=== PATIENT | female | born 1955 | race African-American/Black ===

== ENCOUNTER 2018-06-11 06:04 | Day surgery (SDC) | payer MEDICARE, BC ==
[2018-06-10 12:59] VITALS: BMI 32.2
[~2018-06-11 06:04] MED LIST: Cyclopentolate 1% Opth Drop 2 ML BOT FS SCH; EPINEPHrine 0.3 MG in Ophthalmic Irrigation Solution 500 ML FS SCH; Phenylephrine 2.5% Ophth Soln 5 ML BOT FS SCH
[2018-06-11] MEDS ORDERED: Phenylephrine 2.5% Ophth Soln 5 ML BOT ONE (06:18)
[2018-06-11] MEDS ORDERED: Cyclopentolate 1% Opth Drop 2 ML BOT ONE (06:18)
[2018-06-11] MEDS ORDERED: Fentanyl 100 MCG/2 ML VIAL ONE (07:00)
[2018-06-11] MEDS ORDERED: Midazolam HCl 2 mg/2 ml Vial ONE (07:00)
[2018-06-11] MEDS ORDERED: Lidocaine 2% w/Epinephrine 1:200K 20 ML VIAL ONE (07:00)
[2018-06-11] MEDS ORDERED: PROPOFOL 20 ML ONE (07:00)
--- NOTE | 2018-06-11 08:14 | OP ---
DATE OF PROCEDURE: 06/11/2018 PREOPERATIVE DIAGNOSIS: Exposed tube shunt, left eye. POSTOPERATIVE DIAGNOSIS: Exposed tube shunt, left eye. PROCEDURE: Revision of tube shunt, left eye. SURGEON: Dr. Norbert Mullins ANESTHESIA: Local with monitored anesthesia care. COMPLICATIONS: None. PROCEDURE IN DETAIL: The patient was identified in the preoperative holding area. Appropriate conse nt for the planned surgical procedure on the left eye had been obtained. The patient was transported to the operative suite. Appropriate cardiopulmonary monitoring was established. Local anesthesia o btained using retrobulbar block. The patient was prepped and draped in the usual sterile manner for ophthalmic surgery on the left eye. Lid speculum was placed in the left eye. Infusion line was plac ed at the 8 o'clock position and was checked to be patent by direct inspection through the cornea. A ttention was turned to the superior temporal pars plana. The tube shunt pars plana clip was removed and the tube was repositioned into the eye. The conjunctiva was advanced 180 degrees and advanced fo rward allowing tension with closure of the previous conjunctival defect. 6-0 plain gut sutures were used to close the conch and subconjunctival Ancef were placed. Antibiotic ointment placed, and the e ye was patched and shielded. The patient taken to postop recovery unit in good condition having suff ered no immediate perioperative complications. DISCHARGE INSTRUCTIONS: The patient was instructed to keep patch and shield on, avoid lifting or michael ding, and follow up in the morning with Dr. Mullins.
[2018-06-11] MEDS ORDERED: Maxitrol 0.1% Opth Oint 3.5 GM TUBE ONE (15:30)
[2018-06-11] MEDS ORDERED: Bupivacaine 0.75% 10 ML AMP ONE (15:30)
[2018-06-11] MEDS ORDERED: Lidocaine 1% PF 5 ML VIAL ONE (15:30)
[2018-06-11] MEDS ORDERED: Lidocaine 4% PF 5 ML AMP ONE (15:30)
[2018-06-11] MEDS ORDERED: PROPOFOL 200 MG/20 ML VIAL ONE (15:30)
[2018-06-11] MEDS ORDERED: CEFAZOLIN 1 GM VIAL ONE (15:30)
== END 2018-06-11 08:30 | disposition home or self-care (01) ==
LOC: SDC 06:04
PROVIDERS: ATTEND Ophthalmology Retina Specialist
PROC: 08W Eye, Revision (ICD-10-PCS; principal; 2018-06-11)
DX: T85.398A Other mechanical complication of other ocular prosthetic devices, implants and grafts, initial encounter (principal); H40.2223 Chronic angle-closure glaucoma, left eye, severe stage; Z79.899 Other long term (current) drug therapy
CPT/HCPCS: J0171; J0690; J2001; J2250; J2704; J3010; J3490

== ENCOUNTER 2020-10-08 16:28 | Inpatient (IN) | payer MEDICARE ==
[2020-10-08] MEDS ORDERED: Ondansetron PF 4 MG/2 ML Vial ONE (17:14)
[2020-10-08 17:22] LABS: PTT 25.6 sec (22.9-36.1); Prothrombin Time 13.1 sec (12.0-14.7)
[2020-10-08 17:23] LABS: Mean Corpuscular HGB CONC 30.6 g/dL (32.0-36.0); Mean Corpuscular Hemoglobin 30.2 pg (27.0-31.0); Mean Corpuscular Volume 98.7 fL (78.0-98.0); RBC Distribution Width 13.1 % (11.5-14.5); Red Blood Cell (RBC) Count 4.31 mill/uL (4.20-5.40)
--- NOTE | 2020-10-08 17:33 | RAD ---
PORTABLE CHEST ONE VIEW: Date: 10-08-2020 Time: 5:14 p.m. History: Dyspnea Comparison: 04-17-16 FINDINGS: The heart is enlarged. There is mild pulmonary vascular congestion. No lobar consolidation, pneumotho races or large effusions are seen. IMPRESSION: As above. POS: RAMONITA
[2020-10-08 17:36] LABS: Eosinophils 1 % (0-10); Lymphocytes 33 % (21-51); MDiff Complete? YES; Mean Platelet Volume 9.1 fL (7.4-10.4); Monocytes 3 % (0-10); Neutrophil 63 % (42-75); Nucleated RBC 2 % (0); Platelet Count 190 thou/uL (130-400); Platelet Morphology Comment Appears Adequate; Polychromasia SLIGHT = 2-3 cells (100X) (0-2/hpf); White Blood Cell (WBC) Count 12.6 thou/uL (4.8-10.8)
[2020-10-08 17:38] LABS: ALT (SGPT) 65 U/L (8-55); AST (SGOT) 39 U/L (5-34); Albumin 4.5 g/dL (3.4-4.8); Alkaline Phosphatase 222 U/L (40-110); Anion Gap 21 mmol/L (10-20); BUN (Urea Nitrogen) 36 mg/dL (9.8-20.1); Bilirubin, Total 0.8 mg/dL (0.2-1.2); Calc. Creatinine Clearance 0 mL/min (70-130); Calcium 9.9 mg/dL (7.8-10.44); Carbon Dioxide 22 mmol/L (23-31); Chloride 107 mmol/L (98-107); Globulin 3.5 g/dL (2.4-3.5); Glucose 365 mg/dL (80-115); Sodium 145 mmol/L (136-145)
[2020-10-08] MEDS ORDERED: Furosemide 40 MG/4 ML VIAL ONE (17:40)
[2020-10-08 17:47] LABS: Actual Bicarbonate (HCO3a) 21.6 mEq/L (22-28); Analyzer IN Cardio ER; Base Excess (BEa) -5.2 mEq/L (-2.0 to +3.0); CO2 Tension 47.1 mmHg (35.0-45.0); Calcium, Ionized (arterial) 1.29 mmol/L (1.12-1.30); Carboxyhemoglobin (COHb) 0.9 gm% (0.0-3.0); Hemoglobin (Hb) 12.9 g/dL (12.0-16.0); O2 Tension (PaO2), arterial 313.5 mmHg (> 80.0); Potassium - ABG Lab 5.09 mmol/L (3.70-5.30); pH, Arterial 7.28 (7.35-7.45)
[2020-10-08 17:49] LABS: ALV-art Gradient 340.625 mmHg (0-20); Puncture Site LRA
[2020-10-08 17:56] LABS: SARS-CoV-2 NAA Rapid Test Not Detected (NotDetected)
[2020-10-08] MEDS ORDERED: niCARdipine 20MG In NaCl 0 MG/0 ML BAG ONE (17:59)
[2020-10-08] MEDS ORDERED: Diltiazem 125 MG/25 ML ONE (18:14)
[2020-10-08] MEDS ORDERED: Diltiazem HCl 125 MG, Admixture Fee 1 EACH in Sodium Chloride 0.9% 100 ML IVPB SCH (18:30)
[2020-10-08] MEDS ORDERED: Ondansetron PF 4 MG/2 ML Vial IVP PRN ×2 (19:45→20:11)
[2020-10-08] MEDS ORDERED: Ondansetron ODT 4 MG TAB SL PRN (19:45)
[2020-10-08] MEDS ORDERED: Labetalol HCl 100 MG/20 ML VIAL SLOW IVP PRN (20:11)
[2020-10-08] MEDS ORDERED: Dextrose 50% Abboject 50 ML SYRINGE SLOW IVP PRN (20:11)
[2020-10-08] MEDS ORDERED: Ondansetron ODT 4 MG TAB PO PRN (20:11)
[2020-10-08] MEDS ORDERED: Dextrose 5% in Water 1,000 ML IV PRN (20:11)
--- NOTE | 2020-10-08 20:13 | HP ---
PRIMARY CARE PROVIDER: Adela Pierce MD PRIMARY COOKER CHIP: Jamarcus Alexander MD CHIEF COMPLAINT: Shortness of breath and weakness. HISTORY OF PRESENT ILLNESS: This is a 65-year-old female, who presented to the [facility] Emergency Department with severe respiratory distress, who states that she suddenly became short of breath in the last 24 hours with some swelling to her abdomen. The patient does admit to history of renal transplant in 2018, on immunosuppressant therapy with compliance. The patient denies undergoing any dialysis currently and states she has had no similar incidence to the current presentation. The patient denied any documented fever, chills, trauma, or exposure history. The patient denied any family members with similar symptoms. The patient denied any change to her chronic medication regimen. The patient does admit that she has had cardiac stent placed in 2013, but follows with her regular primary care provider on a routine basis. The patient denied any prominent lower extremity swelling, but states that when the shortness of breath initiated, she had difficulty laying back in a chair and had to sit upright. EMS personnel were notified, at which point, the patient was noted profoundly dyspneic with respiratory rates in the mid 40s to upper 50s with hypoxia with O2 saturation 81% on room air. Chest imaging in the emergency room revealed a bilateral pulmonary edema, at which point, the patient received 80 mg of Lasix and placed on BiPAP noninvasive mechanical ventilation. The patient was also noted profoundly hypertensive and tachycardiac with heart rates in the 160s. PAST MEDICAL HISTORY: 1. Diabetes mellitus type 2, insulin-requiring with diabetic nephropathy. 2. Chronic kidney disease stage 3, status post renal transplant in 2018. 3. Hypertension. 4. Hypothyroidism. 5. Hyperlipidemia. 6. Morbid obesity. 7. Coronary artery disease, status post cardiac stent placement. PAST SURGICAL HISTORY: 1. Status post cardiac stent placement in 2013. 2. Status post hysterectomy. 3. Status post temporary hemodialysis catheter placement with subsequent removal. 4. Status post renal transplant. CURRENT MEDICATIONS: Based on review of electronic medical record, 1. Latanoprost 0.005% one drop to each eye at bedtime. 2. Vitamin D3 of 1000 units p.o. daily. 3. Tacrolimus 2 mg p.o. b.i.d. 4. Levothyroxine 75 mcg p.o. daily. 5. Rhopressa one drop to each eye at bedtime. 6. Prednisone 5 mg p.o. daily. 7. Myfortic 180 mg p.o. b.i.d. 8. Glargine insulin 15 units subcutaneously at bedtime. 9. Magnesium oxide 400 mg p.o. at bedtime. 10. Multivitamin 1 tablet p.o. daily. 11. Ferrous sulfate 325 mg p.o. at bedtime. 12. Brimonidine tartrate/timolol 0.2%/0.5% eyedrops one drop to each eye b.i.d. 13. Lipitor 80 mg p.o. at bedtime. 14. Enteric-coated aspirin 81 mg p.o. daily. ALLERGIES: NO KNOWN DRUG ALLERGIES. FAMILY HISTORY: Mother and three sisters with diabetes mellitus. Brother with history of myocardial infarction with subsequent expiration. SOCIAL HISTORY: , with her in the emergency room. Resides in [place], [place]. No current alcohol, tobacco, or illicit drug use. REVIEW OF SYSTEMS: CONSTITUTIONAL: Negative for weight loss or gain, ability to conduct usual activities. SKIN: Negative for rash, itching. EYES: Negative for double vision, pain. ENT/MOUTH: Negative for nose bleeding, neck stiffness, pain, tenderness. CARDIOVASCULAR: Negative for palpitations, dyspnea on exertion, orthopnea. RESPIRATORY: Negative for shortness of breath, wheezing, cough, hemoptysis, fever or night sweats. GASTROINTESTINAL: Negative for poor appetite, abdominal pain, heartburn, nausea, vomiting, constipation, or diarrhea. GENITOURINARY: Negative for urgency, frequency, dysuria, nocturia. MUSCULOSKELETAL: Negative for pain, swelling. NEUROLOGIC/PSYCHIATRIC: Negative for anxiety, depression. ALLERGY/IMMUNOLOGIC: Negative for skin rash, bleeding tendency. Otherwise, negative except as stated per HPI. PHYSICAL EXAMINATION: VITAL SIGNS: On admission, blood pressure 172/118, pulse 155, respiratory rate 46, and O2 saturation 81% on room air. Temperature 97.6 degrees Fahrenheit. GENERAL APPEARANCE: This is a 65-year-old female, currently on BiPAP noninvasive mechanical ventilation. Alert and responsive, in moderate respiratory distress. HEENT: Pupils are equal, round, and reactive to light and accommodation. Extraocular muscles are intact. No scleral icterus. No conjunctival injection. Nares patent. OP is clear. BiPAP face mask in place. NECK: Supple. No cervical adenopathy. No thyromegaly. No carotid bruits. No JVD appreciated. Cervical spine with full active and passive range of motion. No meningeal signs noted. CHEST: Bibasilar crackles bilaterally with diminished breath sounds. Tachypnea noted. CARDIOVASCULAR: S1 and S2 with irregular rate and rhythm. Tachycardic. ABDOMEN: Obese soft, and nontender. Landmarks are difficult to palpate due to the patient's body habitus. No rebound or guarding noted. EXTREMITIES: Warm and dry with fair turgor. Mild pitting edema to the proximal shins bilaterally. Pulses palpable distally at the dorsalis pedis, posterior tibial, and popliteal arteries bilaterally. Capillary refill less than 2 seconds. NEUROLOGIC: Cranial nerves 2 through 12 are grossly intact. No focal or lateralizing signs appreciated. Responds to questions appropriately. PERTINENT LABORATORY AND X-RAY FINDINGS: Sodium 145, potassium 5.0, chloride 107, CO2 of 22, anion gap 21, BUN 36, creatinine 1.89, estimated GFR 32, glucose 365, lactic acid level 2.8, calcium 9.9, AST 39, ALT of 65, alkaline phosphatase 222. BNP 1158, previously noted 2539, 11/10/2013. CBC showed a white blood cell count of 12.6, hemoglobin 13, hematocrit 43, MCV 99, platelet count 190 with normal differential. PT 13.1, INR 1.0, PTT 25.6. ABG on admission 10/08/2020 at 1740 hours showed a pH 7.28, pCO2 of 47.1, pO2 of 314, O2 saturation 99.6 on BiPAP noninvasive mechanical ventilation 100% FiO2. COVID-19 PCR not detected, 10/08/2020. Influenza A and B negative 10/08/2020. Portable chest x-ray dated 10/08/2020 showed cardiomegaly with pulmonary vascular congestion. EKG dated 10/08/2020, by my interpretation shows atrial fibrillation with rapid ventricular response, heart rates in the 130s. ASSESSMENT AND PLAN: 1. Acute hypoxic hypercapnic respiratory failure. The patient will be admitted to the Critical Care Unit. We will continue BiPAP noninvasive mechanical ventilation and titrate to clinical response. Suspect the patient's respiratory failure due to #2 and #3. See below for management. 2. Acute congestive heart failure exacerbation. Suspect multifactorial process including #3. Continue Lasix 40 mg IV b.i.d. Check 2D transthoracic echocardiogram in the a.m. Serial I's and O's and daily weight. Check magnesium and TSH level in the a.m. Consult Cardiology Service in the a.m. for any further recommendations. 3. Atrial fibrillation with rapid ventricular response. It appears to be new onset. Continue rate control measures with Cardizem 20 mg IV bolus x1 followed by 15 mg/hour. Start Eliquis 2.5 mg b.i.d. Check 2D transthoracic echocardiogram. TSH and magnesium level in the a.m. 4. Chronic kidney disease stage 3. Avoid nephrotoxic agents and limit contrast exposure. Serial creatinine monitoring. Consult Nephrology Service in the a.m. 5. Status post renal transplant. Continue supportive management as outlined above. Consult Nephrology Service in the a.m. Resume immunosuppressive therapy. 6. Diabetes mellitus type 2, insulin requiring. Insulin sliding scale for reflexive coverage. Hold long-acting insulin until the patient tolerating p.o. intake off BiPAP noninvasive mechanical ventilation. Serial Accu-Cheks q.6 hours. 7. Prophylaxis. SCDs while in bed. Pepcid 20 mg p.o. b.i.d. 8. Code status is full. Surrogate medical decision maker is the patient's spouse. Job ID: [id number]
[2020-10-08 20:51] LABS: Troponin I 0.261 ng/mL (< 0.028)
[2020-10-08] MEDS ORDERED: Mycophenolate ER 180 MG TAB PO SCH (21:00)
[2020-10-08] MEDS: Magnesium Oxide 400 MG TAB PO SCH (22:18)
[2020-10-08] MEDS: Famotidine 20 MG TAB PO SCH (22:18)
[2020-10-08] MEDS: Apixaban 2.5 MG TAB PO SCH (22:18)
[2020-10-08] MEDS: Ferrous Sulfate 325 MG TAB PO SCH (22:18)
[2020-10-08] MEDS: Atorvastatin Calcium 40 MG TAB PO SCH (22:18)
[2020-10-08] MEDS: Cholecalciferol 1,000 UNITS (25 MCG) TAB PO SCH (22:18)
[2020-10-08] MEDS: Carvedilol 6.25 MG TAB PO SCH (22:19)
[2020-10-08] MEDS: Timolol 0.5% Ophth Soln 5 ml Bottle EA EYE SCH (22:19)
[2020-10-08] MEDS: Brimonidine Tartrate 0.2% Ophth Soln 5 ml Bottle EA EYE SCH (22:20)
[2020-10-08] MEDS: Latanoprost 0.005% Ophth Soln 2.5 ml Bottle EA EYE SCH (22:20)
[2020-10-08] MEDS: Tacrolimus 1 MG CAP PO SCH (22:20)
[2020-10-08 23:54] LABS: Troponin I 0.754 ng/mL (< 0.028)
[2020-10-08] MEDS ORDERED: Furosemide 40 MG/4 ML VIAL SLOW IVP SCH (23:59)
[2020-10-09] MEDS: HumaLOG 300 UNITS/3 ML VIAL SC PRN ×2 (00:46→05:17)
[2020-10-09 03:46] LABS: #Basophils 0.1 thou/uL (0.0-0.2); #Lymphocytes 1.7 thou/uL (1.20-3.40); #Monocytes 0.9 thou/uL (0.11-0.59); #Neutrophils 7.8 thou/uL (1.40-6.50); %Basophils 0.5 % (0.0-1.0); %Eosinophils 0.5 % (0.0-10.0); %Lymphocytes 16.3 % (21.0-51.0); %Monocytes 8.7 % (0.0-10.0); Hemoglobin 10.8 g/dL (12.0-16.0); Mean Corpuscular HGB CONC 30.6 g/dL (32.0-36.0); Mean Corpuscular Hemoglobin 30.2 pg (27.0-31.0); Mean Corpuscular Volume 98.6 fL (78.0-98.0); Mean Platelet Volume 8.5 fL (7.4-10.4); Platelet Count 201 thou/uL (130-400); RBC Distribution Width 12.9 % (11.5-14.5); Red Blood Cell (RBC) Count 3.59 mill/uL (4.20-5.40); White Blood Cell (WBC) Count 10.6 thou/uL (4.8-10.8)
[2020-10-09 04:08] LABS: ALT (SGPT) 47 U/L (8-55); AST (SGOT) 26 U/L (5-34); Albumin 3.5 g/dL (3.4-4.8); Alkaline Phosphatase 155 U/L (40-110); Anion Gap 15 mmol/L (10-20); BUN (Urea Nitrogen) 35 mg/dL (9.8-20.1); Bilirubin, Total 0.6 mg/dL (0.2-1.2); Calc. Creatinine Clearance 54 mL/min (70-130); Calcium 9.2 mg/dL (7.8-10.44); Carbon Dioxide 26 mmol/L (23-31); Chloride 109 mmol/L (98-107); Globulin 2.8 g/dL (2.4-3.5); Glucose 164 mg/dL (80-115); Magnesium 2.2 mg/dL (1.6-2.6); Potassium 4.6 mmol/L (3.5-5.1); Protein, Total 6.3 g/dL (6.0-8.3); Sodium 145 mmol/L (136-145)
[2020-10-09] MEDS: Furosemide 40 MG/4 ML VIAL SLOW IVP SCH ×2 (05:04→13:46)
[2020-10-09] MEDS: Levothyroxine Sodium 75 MCG TAB PO SCH (05:05)
--- NOTE | 2020-10-09 08:40 | CON ---
DATE OF CONSULTATION: 10/09/2020 REASON FOR CONSULTATION: ICU management of hypoxic respiratory failure related to pulmonary edema. HISTORY OF PRESENT ILLNESS: Ms. Hoang is a pleasant 65-year-old female, who presented to the emergency room yesterday with respiratory distress related to pulmonary edema. She was also found to be in atrial fibrillation with rapid ventricular response. The patient was placed on BiPAP and has since been weaned off that this morning. She is diuresed nicely with Lasix. SUBJECTIVE: She says she has not really had any pulmonary issues in the past other than some heart issues. She denies any asthma or COPD. She says that she snores heavily, but has never been tested for MAI. PAST MEDICAL HISTORY: 1. Diabetes mellitus, type 2. 2. Diabetic nephropathy. 3. End-stage renal disease, requiring renal transplant in 2018. 4. Hypertension. 5. Hypothyroidism. 6. Hyperlipidemia. 7. Obesity. 8. Coronary artery disease. PAST SURGICAL HISTORY: 1. Coronary stent placement. 2. Renal transplant. 3. Hysterectomy. 4. Previous AV shunts, which have since clotted off. 5. History of temporary dialysis catheter, which was removed. MEDICATIONS: Prior to admission; 1. Latanoprost eye drops. 2. Vitamin D3 of 1000 units daily. 3. Tacrolimus 2 mg b.i.d. 4. Levothyroxine 75 mcg daily. 5. Rhopressa one drop each eye at bedtime. 6. Prednisone 5 mg daily. 7. Myfortic 180 mg b.i.d. 8. Glargine insulin 15 units nightly. 9. Magnesium oxide 400 mg daily. 10. Multivitamin one tablet daily. 11. Iron sulfate 325 mg at night. 12. Brimonidine tartrate/timolol eye drops. 13. Lipitor 80 mg nightly. 14. Aspirin 81 mg daily. ALLERGIES: NONE. FAMILY MEDICAL HISTORY: Remarkable for diabetes and heart disease. SOCIAL HISTORY: Nonsmoker. Does not consume alcohol. Does not use illicit drugs. REVIEW OF SYSTEMS: Twelve-point review of systems is otherwise negative. PHYSICAL EXAMINATION: VITAL SIGNS: Temperature 98.3, pulse 98 to 120, blood pressure 113/65, and O2 saturation 99%. GENERAL: The patient is awake, alert, speaks in complete sentences without difficulty. HEENT: Unremarkable. NECK: No adenopathy or JVD. CARDIAC: S1 and S2. Irregularly irregular and tachycardic. LUNGS: Clear without wheezing or rhonchi. ABDOMEN: Soft, obese, nontender, and nondistended. EXTREMITIES: No clubbing, cyanosis, or edema. IMAGING DATA: Her chest x-ray at time of admission showed cardiomegaly and pulmonary edema. LABORATORY DATA: White blood cell count 10.6, hematocrit 35.4, and platelet count 201. PH was 7.28, pCO2 of 47, pO2 of 313 on BiPAP 16/8, FiO2 of 100%. BNP 1702 today compared to 1157 yesterday. Sodium 145, potassium 4.6, chloride 109, CO2 of 26, BUN 35, creatinine 1.7, and glucose 164. COVID test was negative. ASSESSMENT: 1. Probable diastolic heart failure with cardiogenic pulmonary edema. 2. Status post renal transplant. 3. Atrial fibrillation with rapid ventricular response. 4. Diabetes mellitus. PLAN: 1. The main issues here probably control of her atrial fibrillation and diuresis as needed. 2. In the future, it might be marr to have her go get a sleep study as uncontrolled/severe sleep apnea could be a trigger for her atrial fibrillation and aggravate her heart failure. 3. Agree with Cardiology consultation. 4. Since she is off the BiPAP, I believe she could probably be transferred to telemetry. Job ID: [id number]
[2020-10-09] MEDS ORDERED: Tacrolimus [Envarsus Xr] 1 MG Tab.Er.24h PO SCH (09:00)
[2020-10-09] MEDS: Tacrolimus 1 MG CAP PO SCH (09:01)
[2020-10-09] MEDS: Carvedilol 6.25 MG TAB PO SCH ×2 (09:41→20:05)
[2020-10-09] MEDS: Aspirin 81 mg Enteric Coated Tablet PO SCH (09:42)
[2020-10-09] MEDS: predniSONE 5 MG TAB PO SCH (09:42)
[2020-10-09] MEDS: Apixaban 2.5 MG TAB PO SCH (09:42)
[2020-10-09] MEDS: Timolol 0.5% Ophth Soln 5 ml Bottle EA EYE SCH ×2 (09:47→20:08)
[2020-10-09] MEDS: Brimonidine Tartrate 0.2% Ophth Soln 5 ml Bottle EA EYE SCH ×2 (09:48→20:09)
--- NOTE | 2020-10-09 09:54 | CON ---
DATE OF CONSULTATION: 10/09/2020 HISTORY OF PRESENT ILLNESS: Ms. Hoang is a 65-year-old black female with history of status post cadaveric renal transplant, type 2 diabetes mellitus, hypertension, and admitted for generalized weakness. She was found to be in CHF and was hypoxemic. Initially, placed on BiPAP. This morning, her respiratory distress is much improved. We are now being consulted for management of her renal transplantation. REVIEW OF SYSTEMS: Positive for shortness of breath. No chest pain. No syncopal episode. No nausea. No vomiting. No gross hematuria. No fever or chills. Denies any productive cough. No abdominal pain. Occasional joint pains. No hematochezia. No melena. No hematemesis. HOME MEDICATIONS: Include the following; 1. Prednisone 7.5 mg p.o. daily. 2. Envarsus XR-tacrolimus long-acting 4 mg tablet plus three tablets of 1 mg tablet each for a total of 7 mg per day. 3. MiraLAX 17 g daily. 4. Multivitamin daily. 5. Magnesium oxide 400 mg at bedtime. 6. Levothyroxine 75 mcg p.o. daily. 7. Novolin 70/30, 3 units subcu before meals. 8. Insulin glargine 16 units subcu at bedtime. 9. Ferrous sulfate 325 mg at bedtime. 10. Famotidine 20 mg p.o. b.i.d. 11. Vitamin D3, 2000 international units at bedtime. 12. Atorvastatin 80 mg at bedtime. 13. Aspirin 81 mg tablet once a day. PAST MEDICAL HISTORY: Status post ESRD from diabetic nephropathy, type 2 diabetes mellitus, status post renal transplant, hypertension, hyperlipidemia. PAST SURGICAL HISTORY: Status post PD catheter placement with subsequent removal, status post AV fistula placement, status post cuffed dialysis catheter placement, status post colonoscopy, status post cadaveric renal transplant, status post hysterectomy, status post colonic polypectomy. ALLERGIES: NONE. TRAUMA: None. IMMUNIZATIONS: Up to date. HOSPITALIZATIONS: Please see past medical history. SOCIAL HISTORY: The patient lives in [place]. . No children. Retired cook. Education, high school. No alcohol intake. Sedentary lifestyle. Status post multiple blood transfusions. No IV drug abuse. No smoking. FAMILY HISTORY: Positive history of ESRD. PHYSICAL EXAMINATION: VITAL SIGNS: Blood pressure is 122/56, heart rate 105, respiratory rate is 20, O2 saturation 100%. GENERAL: The patient is awake, alert, comfortable, not in distress. SKIN: Adequate turgor. HEENT: She has pinkish conjunctivae. Anicteric sclerae. No neck mass. No carotid bruits. No JVD. CHEST: No deformities. LUNGS: Clear breath sounds. No wheezing. No crackles. HEART: Normal sinus rhythm. No murmurs. No gallops. No rubs. ABDOMEN: Globular, soft, nontender. No masses. EXTREMITIES: Trace edema. NEUROLOGIC: Awake. Oriented to 3 spheres. Moving all extremities. No tremors. No asterixis. No ataxia. LABORATORY DATA: Laboratories of October 09, 2020: White count 10.6, hemoglobin 10.8. Sodium 145, potassium 4.6, chloride 109, carbon dioxide 26, BUN 35, creatinine 1.75, glucose 164, calcium 9.2, magnesium 2.2, AST 26, ALT 47. BNP 1702. Further review of her serum creatinine shows the following; on October 08, 2020, it was 1.89. On July 12, 2020, creatinine 1.3. On July 12, 2020, tacrolimus level was 7.9. COVID-19 testing, negative. Influenza A and B, negative. On May 16, 2020, BK virus was 5150. ASSESSMENT AND PLAN: 1. Status post cadaveric renal transplant - we will continue current immunosuppressive regimen. CellCept has been discontinued with this patient due to BK virus infection. She takes Envarsus/tacrolimus which is long-acting - total of 7 mg per day. We will recheck tacrolimus level. Continue current immunosuppressive regimen. Continue prednisone. 2. Acute kidney injury - most likely a hemodynamically-mediated renal dysfunction secondary to her congestive heart failure. Continue judicious use of diuretics. 3. Congestive heart failure, followed by her fruit raiser as well as by the hospitalist. A cardiac echo has been ordered. 4. We will do a tacrolimus level this morning. Adjust tacrolimus as needed. Thank you for the consult. We will continue to follow. Job ID: [id number]
[2020-10-09 12:27] LABS: Troponin I 1.569 ng/mL (< 0.028)
[2020-10-09] MEDS: ENVARSUS 4 MG PO SCH (13:27)
[2020-10-09] MEDS: ENVARSUS 1 MG PO SCH (13:28)
[2020-10-09] MEDS ORDERED: Amiodarone 150 MG in Dextrose 5% in Water 100 ML IVPB SCH (15:30)
[2020-10-09] MEDS ORDERED: Amiodarone 450 MG in Dextrose 5% in Water 250 ML IVPB SCH (15:30)
[2020-10-09 16:09] LABS: Critical Call Chem Troponin I RESULT DECREASING; Troponin I 1.501 ng/mL (< 0.028)
--- NOTE | 2020-10-09 17:57 | PDOC.HOSPP ---
- Subjective Encounter Date: 10/09/20 Encounter Time: 10:30 Subjective: Patient up in bed no complaints. - Objective Vital Signs & Weight: Vital Signs (12 hours) Temp Pulse BP Pulse Ox 10/09/20 16:00 98.4 F 10/09/20 12:00 98.3 F 10/09/20 09:47 97 118/58 L 10/09/20 09:41 118/58 L 10/09/20 08:00 98.4 F 100 Weight Admit Weight 232 lb 9.403 oz Weight 232 lb 9.403 oz Most Recent Monitor Data Heart Rate from ECG 87 NIBP 119/50 NIBP BP-Mean 93 Respiration from ECG 15 SpO2 100 I&O: 10/08/20 10/09/20 10/10/20 06:59 06:59 06:59 Intake Total 210 Output Total 2800 1640 Balance -2800 -1430 Result Diagrams: 10/09/20 03:23 10/09/20 03:23 Additional Labs: Accuchecks 10/09/20 10/09/20 10/09/20 16:46 13:10 00:46 POC Glucose 145 H 107 H 207 H Hospitalist ROS - Review of Systems Cardiovascular: denies: chest pain, palpitations, orthopnea, paroxysmal noc. dyspnea, edema, light headedness, other Gastrointestinal: denies: nausea, vomiting, abdominal pain, diarrhea, constipation, melena, hematochezia, other Genitourinary: denies: dysuria, frequency, incontinence, hematuria, retention, other - Medication Medications: Active Medications Generic Name Dose Route Start Last Admin Trade Name Baldevq PRN Reason Stop Dose Admin Aspirin 81 mg 10/09/20 09:00 10/09/20 09:42 Aspirin 81 Mg Enteric Coated Tablet PO 81 mg DAILY JEN Administration Atorvastatin Calcium 40 mg 10/08/20 21:00 10/08/20 22:18 Atorvastatin Calcium 40 Mg Tab PO 40 mg HS JEN Administration Brimonidine Tartrate 1 drop 10/08/20 21:00 10/09/20 09:48 Brimonidine Tartrate 0.2% Ophth Soln 5 Ml Bottle EA EYE 1 drop BID JEN Administration Carvedilol 6.25 mg 10/08/20 21:00 10/09/20 09:41 Carvedilol 6.25 Mg Tab PO 6.25 mg BID JEN Administration Cholecalciferol 1,000 units 10/08/20 21:00 10/08/20 22:18 Cholecalciferol 1,000 Units (25 Mcg) Tab PO 1,000 units HS JEN Administration Famotidine 20 mg 10/08/20 21:00 10/08/20 22:18 Famotidine 20 Mg Tab PO 20 mg 2100 JEN Administration Ferrous Sulfate 325 mg 10/08/20 21:00 10/08/20 22:18 Ferrous Sulfate 325 Mg Tab PO 325 mg HS JEN Administration Furosemide 40 mg 10/09/20 06:00 10/09/20 13:46 Furosemide 40 Mg/4 Ml Vial SLOW IVP 40 mg 0600,1400 JEN Administration Insulin Human Lispro 0 units 10/08/20 20:11 10/09/20 05:17 Humalog 300 Units/3 Ml Vial SC 2 unit .MILD SLIDING SCALE PRN Administration Mild Correctional Scale Insulin Human Lispro 0 units 10/08/20 20:11 10/09/20 00:46 Humalog 300 Units/3 Ml Vial SC 2 unit .BEDTIME SLIDING SC PRN Administration Bedtime Correctional Scale Latanoprost 1 drop 10/08/20 21:00 10/08/20 22:20 Latanoprost 0.005% Ophth Soln 2.5 Ml Bottle EA EYE Not Given HS JEN Levothyroxine Sodium 75 mcg 10/09/20 06:00 10/09/20 05:05 Levothyroxine Sodium 75 Mcg Tab PO 75 mcg 0600 JEN Administration Magnesium Oxide 400 mg 10/08/20 21:00 10/08/20 22:18 Magnesium Oxide 400 Mg Tab PO 400 mg HS JEN Administration Envarsus Xr 4 Mg 1 each 10/09/20 09:00 10/09/20 13:27 PO 1 each DAILY JEN Administration Envarsus Xr 1 Mg 3 each 10/09/20 09:00 10/09/20 13:28 PO 3 each DAILY JEN Administration Prednisone 5 mg 10/09/20 09:00 10/09/20 09:42 Prednisone 5 Mg Tab PO 5 mg DAILY JEN Administration Timolol Maleate 1 drop 10/08/20 21:00 10/09/20 09:47 Timolol 0.5% Ophth Soln 5 Ml Bottle EA EYE 1 drop BID JEN Administration - Exam Neck: negative: supple, symmetric, no JVD, no thyromegaly, no lymphadenopathy, no carotid bruit, JVD Heart: negative: RRR, no murmur, no gallops, no rubs, normal peripheral pulses, irregular, diminshed peripheral pulses, murmur present, II/IV, III/IV Respiratory: negative: CTAB, no wheezes, no rales, no ronchi, normal chest expansion, no tachypnea, normal percussion, rales, rhonchi, tachypneic, wheezes Gastrointestinal: negative: soft, non-tender, non-distended, normal bowel sound s, no palpable masses, no hepatomegaly, no splenomegaly, no bruit, no guarding, no rigidity, tender to palpation, distended, diminished bowl sounds, voluntary guarding Hosp A/P (1) Renal transplant recipient Status: Acute (2) Chronic kidney disease (CKD) stage G3a/A3, moderately decreased glomerular filtration rate (GFR) between 45-59 mL/min/1.73 square meter and albuminuria creatinine ratio greater than 300 mg/g Code(s): N18.31 - CHRONIC KIDNEY DISEASE, STAGE 3A Status: Acute (3) Shortness of breath Code(s): R06.02 - SHORTNESS OF BREATH Status: Acute (4) Acute and chronic respiratory failure with hypoxia Code(s): J96.21 - ACUTE AND CHRONIC RESPIRATORY FAILURE WITH HYPOXIA Status: Acute (5) NSTEMI (non-ST elevated myocardial infarction) Code(s): I21.4 - NON-ST ELEVATION (NSTEMI) MYOCARDIAL INFARCTION Status: Acute (6) DM type 2 (diabetes mellitus, type 2) Status: Chronic (7) Atrial fibrillation with RVR Code(s): I48.91 - UNSPECIFIED ATRIAL FIBRILLATION Status: Acute - Plan Patient was on BiPAP currently off BiPAP. She is currently being diuresed. Significantly elevate troponin most likely secondary to demand related type II. Rate controlled on amiodarone. Patient on aspirin. Patient on Lovenox will renally dose given her renal transplant. Patient currently on tacrolimus will continue.
[2020-10-09] MEDS ORDERED: cefTRIAXone\\ROCEPHIN 1 GM in Sodium Chloride 0.9% 100 ML IVPB SCH (18:00)
--- NOTE | 2020-10-09 18:48 | CON ---
DATE OF CONSULTATION: HISTORY OF PRESENT ILLNESS: Letty Hoang is a 65-year-old black female, who was admitted with increased shortness of breath and pulmonary edema. 9 or 10 years ago, she was seen by Dr. Mcneil and apparently she had abnormal PET scan and was told that she need to undergo cardiac catheterization; however, she never did follow up with him. She was seen by Dr. Hawkins here at [facility] in October 2013 when she had what was felt to be a non-STEMI type 2. She did not follow with Dr. Hawkins. In 2013, she was undergoing evaluation for a renal transplant. Apparently, she underwent cardiac catheterization at [place] and had a coronary artery stent placed. She did not have any chest discomfort prior to that, just evaluation prior to transplantation. She did undergo renal transplantation. Also, she has had atrial fibrillation and was on amiodarone in the past. On going through the list of anticoagulants, none of these medications seem familiar to her. She states that approximately 2 years ago, the amiodarone was stopped because she continued to have a normal heart rhythm. She has noted increasing pedal edema as well as abdominal girth. She has had increasing shortness of breath, came to emergency room yesterday with respiratory rates in the mid 40s to upper 50s with O2 saturation of 81% on room air. She was placed on BiPAP. Given intravenous diuretics and her breathing has significantly improved. She denied any palpitations or chest discomfort during all of this. She was found to be in atrial fibrillation at the time of admission and has been placed on a Cardizem drip for better rate control. PAST MEDICAL HISTORY: Diabetes, chronic kidney disease status post renal transplantation in 2018, hypertension, hypothyroidism, hyperlipidemia, morbid obesity, coronary artery disease status post stent placement, and atrial fibrillation in the past. PAST SURGICAL HISTORY: Coronary artery stent in 2013, renal transplant, hysterectomy. MEDICATIONS: 1. Aspirin 81 daily. 2. Atorvastatin 80 at bedtime. 3. Pepcid 20 b.i.d. 4. Ferrous sulfate 325 at bedtime. 5. Lantus 16 units at bedtime. 6. Levothyroxine 75 mcg daily. 7. Magnesium oxide 400 at bedtime. 8. MiraLAX daily p.r.n. 9. Prednisone 7.5 mg daily. 10. Tacrolimus 7 mg daily. ALLERGIES: NONE. SOCIAL HISTORY: She does not smoke or drink. FAMILY HISTORY: Brother had myocardial infarction. REVIEW OF SYSTEMS: A 10-point review of systems otherwise unremarkable. Specifically, she denies any fever, cough, or chills. PHYSICAL EXAMINATION: VITAL SIGNS: Blood pressure 103/46 and pulse of 90 and irregularly irregular. HEENT: PERRL. NECK: Supple. CHEST: Clear. CARDIAC: S1 and S2 normal without any S3, S4, or murmurs. Carotid upstrokes normal without bruits. ABDOMEN: Obese. Normal bowel sounds. No tenderness. EXTREMITIES: Revealed trace pretibial edema. NEUROLOGIC: Grossly intact. SKIN: Warm and dry. LABORATORY DATA: EKG reveals atrial fibrillation with nonspecific ST and T-wave changes. Hemoglobin 10.8, hematocrit 35.4, white count 10,600, and platelets 201,000. ABG yesterday's pH of 7.2, pCO2 of 47.1, and pO2 of 313.5. Sodium 145, potassium 4.6, chloride 109, carbon dioxide 26, BUN 35, and creatinine 1.75. Troponin I 1.569 and BNP 1702.1. TSH is normal. Influenza A, influenza B, and COVID are negative. Chest x-ray revealed cardiac enlargement, mild pulmonary vascular congestion. Echocardiogram revealed normal left ventricular function with ejection fraction of 50% to 55%. Mitral annular calcification, mild mitral regurgitation, and mild tricuspid regurgitation. IMPRESSION: 1. Acute on chronic diastolic heart failure, probably exacerbated by atrial fibrillation. 2. Atrial fibrillation with fast ventricular response. She apparently has had atrial fibrillation in the past and was on amiodarone, but this was stopped two years ago. In naming anticoagulants, she was not familiar with any of them. 3. Hypertension. 4. Hypercholesterolemia. 5. Chronic kidney disease, status post transplantation. 6. Possible obstructive sleep apnea with significant snoring, although she has never had any sleep study. 7. NSTEMI type 2. 8. History of coronary artery stent 2013. PLAN: The patient will continue to be diuresed. I will go ahead and load her with IV amiodarone and she should be anticoagulated with Eliquis 5 mg b.i.d. with her weight and age. After she has been loaded with amiodarone for 2 to 3 days, consideration could be given to transesophageal echo and cardioversion. Records from [facility] here in town will be requested. Job ID: [id number] MTDD
[2020-10-09 19:23] LABS: Critical Call Chem Troponin I RESULT DECREASING; Troponin I 1.239 ng/mL (< 0.028)
[2020-10-09] MEDS: Magnesium Oxide 400 MG TAB PO SCH (20:05)
[2020-10-09] MEDS: Ferrous Sulfate 325 MG TAB PO SCH (20:05)
[2020-10-09] MEDS: Famotidine 20 MG TAB PO SCH (20:05)
[2020-10-09] MEDS: Cholecalciferol 1,000 UNITS (25 MCG) TAB PO SCH (20:06)
[2020-10-09] MEDS: Atorvastatin Calcium 40 MG TAB PO SCH (20:06)
[2020-10-09] MEDS: Enoxaparin Sodium 100 MG/ML SYRINGE SC SCH (20:06)
[2020-10-09] MEDS: Latanoprost 0.005% Ophth Soln 2.5 ml Bottle EA EYE SCH (20:09)
[2020-10-09] MEDS ORDERED: Apixaban 5 MG TAB PO SCH (21:00)
[2020-10-10 03:59] LABS: Hemoglobin 10.6 g/dL (12.0-16.0); Platelet Count 191 thou/uL (130-400)
[2020-10-10] MEDS: HumaLOG 300 UNITS/3 ML VIAL SC PRN ×2 (04:10→22:15)
[2020-10-10 04:19] LABS: Anion Gap 11 mmol/L (10-20); BUN (Urea Nitrogen) 37 mg/dL (9.8-20.1); Calc. Creatinine Clearance 50 mL/min (70-130); Calcium 9.3 mg/dL (7.8-10.44); Carbon Dioxide 34 mmol/L (23-31); Cardiac Risk 2.3 (Less than 4.5); Chloride 105 mmol/L (98-107); Cholesterol 128 mg/dl (< 200 Desired); Glucose 163 mg/dL (80-115); HDL Cholesterol 56 mg/dL (>60 Neg Risk); LDL Cholesterol, Calculated 58 mg/dL; Potassium 4.2 mmol/L (3.5-5.1); Sodium 146 mmol/L (136-145); Triglycerides 70 mg/dL (Less than 150)
[2020-10-10] MEDS: Furosemide 40 MG/4 ML VIAL SLOW IVP SCH (05:30)
[2020-10-10] MEDS: Levothyroxine Sodium 75 MCG TAB PO SCH (05:30)
[2020-10-10] MEDS: predniSONE 5 MG TAB PO SCH (09:00)
[2020-10-10] MEDS: ENVARSUS 4 MG PO SCH (09:00)
[2020-10-10] MEDS: ENVARSUS 1 MG PO SCH (09:00)
[2020-10-10] MEDS: Aspirin 81 mg Enteric Coated Tablet PO SCH (09:00)
[2020-10-10] MEDS: Enoxaparin Sodium 100 MG/ML SYRINGE SC SCH ×2 (09:00→20:49)
[2020-10-10] MEDS: Carvedilol 6.25 MG TAB PO SCH ×2 (09:02→20:47)
--- NOTE | 2020-10-10 09:13 | PRG ---
DATE OF SERVICE: 10/10/2020 SUBJECTIVE: The patient is doing relatively well. Had no acute complaints. OBJECTIVE: VITAL SIGNS: Temperature 98, pulse 99, blood pressure 109/42, O2 saturation 100%. She is currently on amiodarone drip. HEENT: Unremarkable. NECK: No adenopathy or JVD. LUNGS: Clear. CARDIAC: S1 and S2. Irregularly irregular. ABDOMEN: Soft. EXTREMITIES: Edematous. LABORATORY DATA: Hemoglobin 10.6, hematocrit 34.2, and platelet count 191. Sodium 146, potassium 4.2, chloride 105, CO2 of 34, BUN 37, creatinine 1.8, and glucose 163. ASSESSMENT: 1. Status post pulmonary edema from diastolic heart failure. 2. Status post respiratory failure requiring noninvasive mechanical ventilation. 3. Status post renal transplant. 4. Atrial fibrillation with rapid ventricular response. 5. Diabetes mellitus. 6. Possible underlying obstructive sleep apnea. PLAN: 1. Again at some point in the future, she needs a sleep study. 2. The main issue now is control of her atrial fibrillation. From my standpoint, she is stable for transfer to telemetry. Pulmonary will be available as needed. Job ID: [id number]
[2020-10-10] MEDS: Timolol 0.5% Ophth Soln 5 ml Bottle EA EYE SCH ×2 (09:15→20:50)
[2020-10-10] MEDS: Brimonidine Tartrate 0.2% Ophth Soln 5 ml Bottle EA EYE SCH ×2 (09:16→20:49)
--- NOTE | 2020-10-10 09:55 | PRG ---
DATE OF SERVICE: 10/10/2020 SUBJECTIVE: Ms. Hoang is a 65-year-old black female who is status post cadaveric renal transplant, who was admitted for CHF. IV diuresis has been started. A cardiac echo was done, which showed an EF of 55%. Her breathing is much improved, and for this reason, we will decrease her furosemide from 40 mg IV q.12 to once a day. No other complaints today. OBJECTIVE: VITAL SIGNS: Blood pressure is 101/50, heart rate 99, respiratory rate 14, and O2 saturation was 100%. GENERAL: Noted to be awake, comfortable, not in distress. SKIN: Adequate turgor. HEENT: Pinkish conjunctivae. Anicteric sclerae. NECK: No neck mass. No carotid bruits. LUNGS: Clear breath sounds. HEART: Normal sinus rhythm. No murmur, no gallops, and no rubs. ABDOMEN: Globular and soft. EXTREMITIES: No edema. MEDICATIONS: Medications of 10/10/2020 were reviewed. LABORATORY DATA: On 10/10/2020: Hemoglobin 10.6. Sodium 146, potassium 4.2, chloride 105, carbon dioxide 34, BUN 37, creatinine 1.86, glucose 160, and calcium 9.3. Tacrolimus level is pending. ASSESSMENT AND PLAN: 1. Status post cadaveric renal transplant. The patient is to continue her Envarsus at a total of 7 mg per day. Awaiting tacrolimus level. 2. Congestive heart failure, clinically much improved. We have decided to decrease furosemide from 40 mg IV q.12 to once a day due to the improving congestive heart failure. Of note, her ejection fraction was noted to be normal at 55%. Overall, agree with current management. 3. Acute Kidney Injury - This is a [id number] mediated renal dysfunction related to her CHF and diuretic regimen - adjustment of her diuretics has been ordered. Job ID: [id number] MTDD
--- NOTE | 2020-10-10 14:35 | PDOC.HOSPP ---
- Subjective Encounter Date: 10/10/20 Encounter Time: 10:30 Subjective: pt up in bed no complains - Objective Vital Signs & Weight: Vital Signs (12 hours) Temp Pulse Resp BP BP Pulse Ox 10/10/20 12:45 97.2 F L 96 17 128/51 L 97 10/10/20 12:00 97.9 F 10/10/20 09:15 106 H 101/50 L 10/10/20 09:02 101/50 L 10/10/20 08:00 98 F 100 10/10/20 07:14 98 10/10/20 02:40 99 Weight Admit Weight 232 lb 9.403 oz Weight 226 lb 3 oz Most Recent Monitor Data Heart Rate from ECG 99 NIBP 105/45 NIBP BP-Mean 67 Respiration from ECG 16 SpO2 100 I&O: 10/09/20 10/10/20 10/11/20 06:59 06:59 06:59 Intake Total 966 200 Output Total 2800 3240 400 Balance -2800 -2274 -200 Result Diagrams: 10/10/20 03:24 10/10/20 03:25 Additional Labs: Accuchecks 10/09/20 10/09/20 23:59 16:46 POC Glucose 174 H 145 H Hospitalist ROS - Review of Systems Cardiovascular: denies: chest pain, palpitations, orthopnea, paroxysmal noc. dyspnea, edema, light headedness, other Gastrointestinal: denies: nausea, vomiting, abdominal pain, diarrhea, constipation, melena, hematochezia, other Genitourinary: denies: dysuria, frequency, incontinence, hematuria, retention, other - Medication Medications: Active Medications Generic Name Dose Route Start Last Admin Trade Name Baldevq PRN Reason Stop Dose Admin Aspirin 81 mg 10/09/20 09:00 10/10/20 09:00 Aspirin 81 Mg Enteric Coated Tablet PO 81 mg DAILY JEN Administration Atorvastatin Calcium 40 mg 10/08/20 21:00 10/09/20 20:06 Atorvastatin Calcium 40 Mg Tab PO 40 mg HS JEN Administration Brimonidine Tartrate 1 drop 10/08/20 21:00 10/10/20 09:16 Brimonidine Tartrate 0.2% Ophth Soln 5 Ml Bottle EA EYE 1 drop BID JEN Administration Carvedilol 6.25 mg 10/08/20 21:00 10/10/20 09:02 Carvedilol 6.25 Mg Tab PO Not Given BID JEN Cholecalciferol 1,000 units 10/08/20 21:00 10/09/20 20:06 Cholecalciferol 1,000 Units (25 Mcg) Tab PO 1,000 units HS JEN Administration Enoxaparin Sodium 100 mg 10/09/20 21:00 10/10/20 09:00 Enoxaparin Sodium 100 Mg/Ml Syringe SC 100 mg 0900,2100 JEN Administration Famotidine 20 mg 10/08/20 21:00 10/09/20 20:05 Famotidine 20 Mg Tab PO 20 mg 2100 JEN Administration Ferrous Sulfate 325 mg 10/08/20 21:00 10/09/20 20:05 Ferrous Sulfate 325 Mg Tab PO 325 mg HS JEN Administration Amiodarone HCl 450 mg/ 259 mls @ 0 mls/hr 10/09/20 15:30 10/10/20 00:47 Dextrose/Water IVPB 259 mls INF JEN Administration Protocol Per Protocol Ceftriaxone Sodium 1 gm/ 100 mls @ 200 mls/hr 10/09/20 18:00 10/09/20 18:20 Sodium Chloride IVPB 100 mls Q24HR JEN Administration Insulin Human Lispro 0 units 10/08/20 20:11 10/10/20 04:10 Humalog 300 Units/3 Ml Vial SC 2 unit .MILD SLIDING SCALE PRN Administration Mild Correctional Scale Insulin Human Lispro 0 units 10/08/20 20:11 10/09/20 00:46 Humalog 300 Units/3 Ml Vial SC 2 unit .BEDTIME SLIDING SC PRN Administration Bedtime Correctional Scale Latanoprost 1 drop 10/08/20 21:00 10/09/20 20:09 Latanoprost 0.005% Ophth Soln 2.5 Ml Bottle EA EYE 1 drop HS JEN Administration Levothyroxine Sodium 75 mcg 10/09/20 06:00 10/10/20 05:30 Levothyroxine Sodium 75 Mcg Tab PO 75 mcg 0600 JEN Administration Magnesium Oxide 400 mg 10/08/20 21:00 10/09/20 20:05 Magnesium Oxide 400 Mg Tab PO 400 mg HS JEN Administration Envarsus Xr 4 Mg 1 each 10/09/20 09:00 10/10/20 09:00 PO 1 each DAILY JEN Administration Envarsus Xr 1 Mg 3 each 10/09/20 09:00 10/10/20 09:00 PO 3 each DAILY JEN Administration Prednisone 5 mg 10/09/20 09:00 10/10/20 09:00 Prednisone 5 Mg Tab PO 5 mg DAILY JEN Administration Timolol Maleate 1 drop 10/08/20 21:00 10/10/20 09:15 Timolol 0.5% Ophth Soln 5 Ml Bottle EA EYE 1 drop BID JEN Administration - Exam Neck: negative: supple, symmetric, no JVD, no thyromegaly, no lymphadenopathy, no carotid bruit, JVD Heart: negative: RRR, no murmur, no gallops, no rubs, normal peripheral pulses, irregular, diminshed peripheral pulses, murmur present, II/IV, III/IV Respiratory: negative: CTAB, no wheezes, no rales, no ronchi, normal chest expansion, no tachypnea, normal percussion, rales, rhonchi, tachypneic, wheezes Gastrointestinal: negative: soft, non-tender, non-distended, normal bowel sounds, no palpable masses, no hepatomegaly, no splenomegaly, no bruit, no guarding, no rigidity, tender to palpation, distended, diminished bowl sounds, voluntary guarding Hosp A/P (1) Renal transplant recipient Status: Acute (2) Chronic kidney disease (CKD) stage G3a/A3, moderately decreased glomerular filtration rate (GFR) between 45-59 mL/min/1.73 square meter and albuminuria creatinine ratio greater than 300 mg/g Code(s): N18.31 - CHRONIC KIDNEY DISEASE, STAGE 3A Status: Acute (3) Shortness of breath Code(s): R06.02 - SHORTNESS OF BREATH Status: Acute (4) Acute and chronic respiratory failure with hypoxia Code(s): J96.21 - ACUTE AND CHRONIC RESPIRATORY FAILURE WITH HYPOXIA Status: Acute (5) NSTEMI (non-ST elevated myocardial infarction) Code(s): I21.4 - NON-ST ELEVATION (NSTEMI) MYOCARDIAL INFARCTION Status: Acute (6) DM type 2 (diabetes mellitus, type 2) Status: Chronic (7) Atrial fibrillation with RVR Code(s): I48.91 - UNSPECIFIED ATRIAL FIBRILLATION Status: Acute - Plan Patient was on BiPAP currently off BiPAP. She is currently being diuresed. Significantly elevate troponin most likely secondary to demand related type II. Rate controlled on amiodarone. Patient on aspirin. Patient on Lovenox will renally dose given her renal transplant. Patient currently on tacrolimus will continue. 10/10 pt doing well on amiodarone. will decrease her lasix to daily dosing given her worsening creatinine especially since she is a renal transplant patient. pt's blood cx most likely a contaminant. will continue ceftriaxone until final cx. she will need sleep study per pulmonary.
[2020-10-10] MEDS: Amiodarone 200 MG TAB PO SCH ×2 (15:56→20:47)
[2020-10-10] MEDS ORDERED: Promethazine HCl 25 MG/ML VIAL ONE (17:38)
[2020-10-10] MEDS ORDERED: cefTRIAXone\\ROCEPHIN 1 GM in Sodium Chloride 0.9% 100 ML IVPB SCH (20:00)
[2020-10-10] MEDS: Famotidine 20 MG TAB PO SCH (20:46)
[2020-10-10] MEDS: Atorvastatin Calcium 40 MG TAB PO SCH (20:47)
[2020-10-10] MEDS: Cholecalciferol 1,000 UNITS (25 MCG) TAB PO SCH (20:48)
[2020-10-10] MEDS: Ferrous Sulfate 325 MG TAB PO SCH (20:48)
[2020-10-10] MEDS: Magnesium Oxide 400 MG TAB PO SCH (20:49)
[2020-10-10] MEDS: Latanoprost 0.005% Ophth Soln 2.5 ml Bottle EA EYE SCH (20:49)
[2020-10-11] MEDS: HumaLOG 300 UNITS/3 ML VIAL SC PRN ×4 (00:31→21:20)
[2020-10-11 04:50] LABS: Anion Gap 12 mmol/L (10-20); BUN (Urea Nitrogen) 39 mg/dL (9.8-20.1); Calc. Creatinine Clearance 48 mL/min (70-130); Calcium 8.9 mg/dL (7.8-10.44); Carbon Dioxide 29 mmol/L (23-31); Chloride 104 mmol/L (98-107); Glucose 176 mg/dL (80-115); Potassium 4.2 mmol/L (3.5-5.1); Sodium 141 mmol/L (136-145)
[2020-10-11] MEDS: Levothyroxine Sodium 75 MCG TAB PO SCH (05:40)
[2020-10-11] MEDS ORDERED: Furosemide 40 MG/4 ML VIAL SLOW IVP SCH (09:00)
[2020-10-11] MEDS: Enoxaparin Sodium 100 MG/ML SYRINGE SC SCH (09:10)
[2020-10-11] MEDS: Carvedilol 6.25 MG TAB PO SCH ×2 (09:11→22:09)
[2020-10-11] MEDS: predniSONE 5 MG TAB PO SCH (09:11)
[2020-10-11] MEDS: Brimonidine Tartrate 0.2% Ophth Soln 5 ml Bottle EA EYE SCH ×2 (09:11→21:11)
[2020-10-11] MEDS: Amiodarone 200 MG TAB PO SCH ×3 (09:11→21:09)
[2020-10-11] MEDS: Timolol 0.5% Ophth Soln 5 ml Bottle EA EYE SCH ×2 (09:12→21:11)
--- NOTE | 2020-10-11 09:12 | PRG ---
DATE OF SERVICE: 10/11/2020 SUBJECTIVE: Ms. Ham is a 65-year-old black female status post cadaveric renal transplant and was admitted for shortness of breath secondary to CHF. She most likely has a diastolic dysfunction. Cardiac echo showed EF of 55%. Adjustment of diuretics was made due to the slightly higher creatinine from an acute kidney injury that is most likely hemodynamically-mediated dysfunction. Her shortness of breath is a little better this morning. No chest pain. OBJECTIVE: VITAL SIGNS: Blood pressure 97/60, heart rate 82, respiratory rate 20, temperature 98.1, O2 saturation 100% on 3 L. GENERAL: Awake, comfortable, obese, not in distress. SKIN: Adequate turgor. HEENT: Pinkish conjunctivae. Anicteric sclerae. No neck mass. No carotid bruits. No JVD. CHEST: No deformities. LUNGS: Clear breath sounds. HEART: Normal sinus rhythm. No murmur. No gallops. No rubs. ABDOMEN: Globular, soft, nontender. No masses. EXTREMITIES: No edema. No deformities. MEDICATIONS: October 11, 2020, was reviewed. LABORATORY DATA: Of October 11, 2020, sodium 141, potassium 4.2, chloride 104, carbon dioxide 29, BUN 39, creatinine 1.91, glucose 176, calcium 8.9, hemoglobin 10.6. ASSESSMENT/PLAN: 1. Acute kidney injury-superimposed hemodynamically-mediated dysfunction. Continue supportive care. Lasix has been adjusted downwards yesterday. Continue to observe. Recheck basic metabolic in a.m. 2. Status post cadaveric renal transplant. No evidence of clinical rejection. Awaiting for tacrolimus level. Continue current tacrolimus medication and prednisone. 3. Congestive heart failure, clinically improving. Cardiac echo showed normal EF. Job ID: [id number]
[2020-10-11] MEDS: ENVARSUS 4 MG PO SCH (09:17)
[2020-10-11] MEDS: Aspirin 81 mg Enteric Coated Tablet PO SCH (09:17)
[2020-10-11] MEDS: ENVARSUS 1 MG PO SCH (09:18)
[2020-10-11] MEDS: Atorvastatin Calcium 40 MG TAB PO SCH (21:09)
[2020-10-11] MEDS: Apixaban 5 MG TAB PO SCH (21:09)
[2020-10-11] MEDS: Cholecalciferol 1,000 UNITS (25 MCG) TAB PO SCH (21:10)
[2020-10-11] MEDS: Ferrous Sulfate 325 MG TAB PO SCH (21:10)
[2020-10-11] MEDS: Famotidine 20 MG TAB PO SCH (21:10)
[2020-10-11] MEDS: Magnesium Oxide 400 MG TAB PO SCH (21:10)
[2020-10-11] MEDS: Latanoprost 0.005% Ophth Soln 2.5 ml Bottle EA EYE SCH (21:11)
[2020-10-12 04:36] LABS: #Basophils 0.1 thou/uL (0.0-0.2); #Eosinphils 0.1 thou/uL (0.0-0.7); #Lymphocytes 1.9 thou/uL (1.20-3.40); %Basophils 0.7 % (0.0-1.0); %Lymphocytes 20.6 % (21.0-51.0); %Monocytes 11.3 % (0.0-10.0); %Neutrophils 66.4 % (42.0-75.0); Hemoglobin 9.9 g/dL (12.0-16.0); Mean Corpuscular Hemoglobin 30.4 pg (27.0-31.0); Mean Corpuscular Volume 98.2 fL (78.0-98.0); Mean Platelet Volume 9.8 fL (7.4-10.4); Platelet Count 177 thou/uL (130-400); RBC Distribution Width 12.4 % (11.5-14.5); Red Blood Cell (RBC) Count 3.25 mill/uL (4.20-5.40)
[2020-10-12 04:58] LABS: Anion Gap 14 mmol/L (10-20); BUN (Urea Nitrogen) 46 mg/dL (9.8-20.1); Calc. Creatinine Clearance 41 mL/min (70-130); Carbon Dioxide 28 mmol/L (23-31); Chloride 102 mmol/L (98-107); Glucose 229 mg/dL (80-115); Potassium 4.3 mmol/L (3.5-5.1); Sodium 140 mmol/L (136-145)
[2020-10-12] MEDS: HumaLOG 300 UNITS/3 ML VIAL SC PRN ×3 (06:18→18:16)
[2020-10-12] MEDS: Levothyroxine Sodium 75 MCG TAB PO SCH (06:27)
[2020-10-12] MEDS: Apixaban 5 MG TAB PO SCH (08:36)
[2020-10-12] MEDS: Amiodarone 200 MG TAB PO SCH ×2 (08:36→21:46)
[2020-10-12] MEDS: Aspirin 81 mg Enteric Coated Tablet PO SCH (08:36)
[2020-10-12] MEDS: Brimonidine Tartrate 0.2% Ophth Soln 5 ml Bottle EA EYE SCH ×2 (08:36→21:47)
[2020-10-12] MEDS: predniSONE 5 MG TAB PO SCH (08:36)
[2020-10-12] MEDS: Timolol 0.5% Ophth Soln 5 ml Bottle EA EYE SCH ×2 (08:36→21:48)
[2020-10-12] MEDS: ENVARSUS 4 MG PO SCH (08:41)
[2020-10-12] MEDS: ENVARSUS 1 MG PO SCH (08:41)
--- NOTE | 2020-10-12 08:58 | PRG ---
DATE OF SERVICE: 10/12/2020 SUBJECTIVE: Ms. Hoang is a 65-year-old black female, who is status post cadaveric renal transplant and was admitted for CHF. She was found to be in rapid atrial fibrillation. She has been restarted back on amiodarone and anticoagulation. Her EF showed a normal ejection fraction of 55%. Her renal function has been worsening, most likely from the CHF as well as diuretic regimen. The Lasix has been discontinued yesterday. Creatinine is slightly high at 2.1. No other complaints today. OBJECTIVE: VITAL SIGNS: Blood pressure is 125/52, heart rate 50, respiratory rate is 18, temperature 97.5, and O2 saturation 99%. GENERAL: She is noted to be awake, alert, comfortable, not in distress. SKIN: Adequate turgor. HEENT: She has pinkish conjunctivae. Anicteric sclerae. NECK: No neck mass. No carotid bruits. No JVD. CHEST: No deformities. LUNGS: Clear breath sounds. HEART: Bradycardic. No murmur. No gallops. No rubs. ABDOMEN: Globular, soft, nontender. No masses. Nontender. Positive for bowel sounds. EXTREMITIES: No edema. No deformities. MEDICATIONS: Medications of October 12, 2020, reviewed. LABORATORY DATA: Laboratories of October 12, 2020; white count 9, hemoglobin 9.9. Sodium 140, potassium 4.3, chloride 102, carbon dioxide 28, BUN 46, creatinine 2.18, glucose 229, calcium 9. ASSESSMENT AND PLAN: 1. Acute kidney injury-this is a superimposed hemodynamically-mediated renal dysfunction. Atrial fibrillation may have been contributing to the decreased renal perfusion leading to the higher creatinine. Please note, Lasix has been placed on hold. If the renal function will further worsen, we will consider giving a gentle volume repletion for this patient in a.m. 2. Atrial fibrillation-amiodarone and Eliquis have been restarted by her scientist electronics. 3. Status post cadaveric renal transplant, stable. We will continue current immunosuppressive regimen. Tacrolimus level is still pending. No changes will be made with her anti-rejection medications. 4. We will recheck CBC, basic met in a.m. Job ID: [id number]
[2020-10-12] MEDS ORDERED: Apixaban 5 MG TAB PO SCH (09:43)
[2020-10-12] MEDS ORDERED: Insulin Glargine 8 UNITS in Pre-Filled Syringe 1 EACH SC SCH (09:45)
[2020-10-12] MEDS ORDERED: Sodium Chloride 0.9% 500 ML IV SCH (09:45)
[2020-10-12] MEDS ORDERED: Apixaban 2.5 MG TAB PO SCH (10:00)
[2020-10-12] MEDS: Apixaban 2.5 MG TAB PO SCH (10:50)
[2020-10-12] MEDS ORDERED: predniSONE 20 MG TAB PO SCH (11:15)
[2020-10-12 12:10] LABS: Tacrolimus 3.2 ng/mL (2.0-20.0)
[2020-10-12] MEDS ORDERED: predniSONE 5 MG TAB PO SCH (15:00)
--- NOTE | 2020-10-12 15:41 | PDOC.HOSPP ---
- Subjective Encounter Date: 10/11/20 Encounter Time: 11:45 Subjective: pt up in bed no complains - Objective Vital Signs & Weight: Vital Signs (12 hours) Temp Pulse Pulse Pulse Resp BP BP 10/12/20 12:04 98.5 F 49 L 18 10/12/20 10:43 55 L 52 L 119/56 L 116/57 L 10/12/20 07:55 10/12/20 07:50 97.5 F L 50 L 18 10/12/20 04:35 97.9 F 50 L 18 BP BP Pulse Ox Pulse Ox Pulse Ox 10/12/20 12:04 119/55 L 94 L 10/12/20 10:43 97 94 L 10/12/20 07:55 96 10/12/20 07:50 125/52 L 99 10/12/20 04:35 111/49 L 100 Weight Admit Weight 232 lb 9.403 oz Weight 224 lb 6 oz Most Recent Monitor Data Heart Rate from ECG 99 NIBP 105/45 NIBP BP-Mean 67 Respiration from ECG 16 SpO2 100 I&O: 10/11/20 10/12/20 10/13/20 06:59 06:59 06:59 Intake Total 920 840 Output Total 400 575 Balance 520 265 Result Diagrams: 10/12/20 04:15 10/12/20 04:15 Additional Labs: Accuchecks 10/12/20 10/12/20 10/11/20 12:20 06:08 23:41 POC Glucose 288 H 198 H 224 H 10/11/20 10/11/20 20:31 16:39 POC Glucose 282 H 252 H Hospitalist ROS - Review of Systems Cardiovascular: denies: chest pain, palpitations, orthopnea, paroxysmal noc. dyspnea, edema, light headedness, other Gastrointestinal: denies: nausea, vomiting, abdominal pain, diarrhea, constipation, melena, hematochezia, other Genitourinary: denies: dysuria, frequency, incontinence, hematuria, retention, other - Medication Medications: Active Medications Generic Name Dose Route Start Last Admin Trade Name Freq PRN Reason Stop Dose Admin Amiodarone HCl 400 mg 10/11/20 21:00 10/12/20 08:36 Amiodarone 200 Mg Tab PO 400 mg BID JEN Administration Apixaban 2.5 mg 10/12/20 21:00 10/12/20 10:50 Apixaban 2.5 Mg Tab PO Not Given BID EJN Aspirin 81 mg 10/09/20 09:00 10/12/20 08:36 Aspirin 81 Mg Enteric Coated Tablet PO 81 mg DAILY JEN Administration Atorvastatin Calcium 40 mg 10/08/20 21:00 10/11/20 21:09 Atorvastatin Calcium 40 Mg Tab PO 40 mg HS JEN Administration Brimonidine Tartrate 1 drop 10/08/20 21:00 10/12/20 08:36 Brimonidine Tartrate 0.2% Ophth Soln 5 Ml Bottle EA EYE 1 drop BID JEN Administration Cholecalciferol 1,000 units 10/08/20 21:00 10/11/20 21:10 Cholecalciferol 1,000 Units (25 Mcg) Tab PO 1,000 units HS JEN Administration Famotidine 20 mg 10/08/20 21:00 10/11/20 21:10 Famotidine 20 Mg Tab PO 20 mg 2100 JEN Administration Ferrous Sulfate 325 mg 10/08/20 21:00 10/11/20 21:10 Ferrous Sulfate 325 Mg Tab PO 325 mg HS JEN Administration Sodium Chloride 500 mls @ 50 mls/hr 10/12/20 09:45 10/12/20 10:33 Normal Saline 0.9% IV 10/12/20 19:44 500 mls .Q10H JEN Administration Insulin Human Lispro 0 units 10/08/20 20:11 10/12/20 12:32 Humalog 300 Units/3 Ml Vial SC 4 unit .MILD SLIDING SCALE PRN Administration Mild Correctional Scale Insulin Human Lispro 0 units 10/08/20 20:11 10/11/20 21:20 Humalog 300 Units/3 Ml Vial SC 3 unit .BEDTIME SLIDING SC PRN Administration Bedtime Correctional Scale Latanoprost 1 drop 10/08/20 21:00 10/11/20 21:11 Latanoprost 0.005% Ophth Soln 2.5 Ml Bottle EA EYE 1 drop HS JEN Administration Levothyroxine Sodium 75 mcg 10/09/20 06:00 10/12/20 06:27 Levothyroxine Sodium 75 Mcg Tab PO 75 mcg 0600 JEN Administration Magnesium Oxide 400 mg 10/08/20 21:00 10/11/20 21:10 Magnesium Oxide 400 Mg Tab PO 400 mg HS JEN Administration Envarsus Xr 4 Mg 1 each 10/09/20 09:00 10/12/20 08:41 PO 1 each DAILY JEN Administration Envarsus Xr 1 Mg 3 each 10/09/20 09:00 10/12/20 08:41 PO 3 each DAILY JEN Administration Timolol Maleate 1 drop 10/08/20 21:00 10/12/20 08:36 Timolol 0.5% Ophth Soln 5 Ml Bottle EA EYE 1 drop BID JEN Administration - Exam Neck: negative: supple, symmetric, no JVD, no thyromegaly, no lymphadenopathy, no carotid bruit, JVD Heart: negative: RRR, no murmur, no gallops, no rubs, normal peripheral pulses, irregular, diminshed peripheral pulses, murmur present, II/IV, III/IV Respiratory: negative: CTAB, no wheezes, no rales, no ronchi, normal chest expansion, no tachypnea, normal percussion, rales, rhonchi, tachypneic, wheezes Hosp A/P (1) Renal transplant recipient Status: Acute (2) Chronic kidney disease (CKD) stage G3a/A3, moderately decreased glomerular filtration rate (GFR) between 45-59 mL/min/1.73 square meter and albuminuria creatinine ratio greater than 300 mg/g Code(s): N18.31 - CHRONIC KIDNEY DISEASE, STAGE 3A Status: Acute (3) Shortness of breath Code(s): R06.02 - SHORTNESS OF BREATH Status: Acute (4) Acute and chronic respiratory failure with hypoxia Code(s): J96.21 - ACUTE AND CHRONIC RESPIRATORY FAILURE WITH HYPOXIA Status: Acute (5) NSTEMI (non-ST elevated myocardial infarction) Code(s): I21.4 - NON-ST ELEVATION (NSTEMI) MYOCARDIAL INFARCTION Status: Acute (6) DM type 2 (diabetes mellitus, type 2) Status: Chronic (7) Atrial fibrillation with RVR Code(s): I48.91 - UNSPECIFIED ATRIAL FIBRILLATION Status: Acute - Plan Patient was on BiPAP currently off BiPAP. She is currently being diuresed. Significantly elevate troponin most likely secondary to demand related type II. Rate controlled on amiodarone. Patient on aspirin. Patient on Lovenox will renally dose given her renal transplant. Patient currently on tacrolimus will continue. 10/10 pt doing well on amiodarone. will decrease her lasix to daily dosing given her worsening creatinine especially since she is a renal transplant patient. pt's blood cx most likely a contaminant. will continue ceftriaxone until final cx. she will need sleep study per pulmonary. 10/11 we will hold Lasix for now. Will check BMP in the morning. Patient's rate controlled. Continue anticoagulation.
--- NOTE | 2020-10-12 15:45 | PDOC.HOSPP ---
- Subjective Encounter Date: 10/12/20 Encounter Time: 09:00 Subjective: Patient up in bed no complaints. - Objective Vital Signs & Weight: Vital Signs (12 hours) Temp Pulse Pulse Pulse Resp BP BP 10/12/20 12:04 98.5 F 49 L 18 10/12/20 10:43 55 L 52 L 119/56 L 116/57 L 10/12/20 07:55 10/12/20 07:50 97.5 F L 50 L 18 10/12/20 04:35 97.9 F 50 L 18 BP BP Pulse Ox Pulse Ox Pulse Ox 10/12/20 12:04 119/55 L 94 L 10/12/20 10:43 97 94 L 10/12/20 07:55 96 10/12/20 07:50 125/52 L 99 10/12/20 04:35 111/49 L 100 Weight Admit Weight 232 lb 9.403 oz Weight 224 lb 6 oz Most Recent Monitor Data Heart Rate from ECG 99 NIBP 105/45 NIBP BP-Mean 67 Respiration from ECG 16 SpO2 100 I&O: 10/11/20 10/12/20 10/13/20 06:59 06:59 06:59 Intake Total 920 840 Output Total 400 575 Balance 520 265 Result Diagrams: 10/12/20 04:15 10/12/20 04:15 Additional Labs: Accuchecks 10/12/20 10/12/20 10/11/20 12:20 06:08 23:41 POC Glucose 288 H 198 H 224 H 10/11/20 10/11/20 20:31 16:39 POC Glucose 282 H 252 H Hospitalist ROS - Review of Systems Cardiovascular: denies: chest pain, palpitations, orthopnea, paroxysmal noc. dyspnea, edema, light headedness, other Gastrointestinal: denies: nausea, vomiting, abdominal pain, diarrhea, constipation, melena, hematochezia, other Genitourinary: denies: dysuria, frequency, incontinence, hematuria, retention, other - Medication Medications: Active Medications Generic Name Dose Route Start Last Admin Trade Name Freq PRN Reason Stop Dose Admin Amiodarone HCl 400 mg 10/11/20 21:00 10/12/20 08:36 Amiodarone 200 Mg Tab PO 400 mg BID JEN Administration Apixaban 2.5 mg 10/12/20 21:00 10/12/20 10:50 Apixaban 2.5 Mg Tab PO Not Given BID JEN Aspirin 81 mg 10/09/20 09:00 10/12/20 08:36 Aspirin 81 Mg Enteric Coated Tablet PO 81 mg DAILY JEN Administration Atorvastatin Calcium 40 mg 10/08/20 21:00 10/11/20 21:09 Atorvastatin Calcium 40 Mg Tab PO 40 mg HS JEN Administration Brimonidine Tartrate 1 drop 10/08/20 21:00 10/12/20 08:36 Brimonidine Tartrate 0.2% Ophth Soln 5 Ml Bottle EA EYE 1 drop BID JEN Administration Cholecalciferol 1,000 units 10/08/20 21:00 10/11/20 21:10 Cholecalciferol 1,000 Units (25 Mcg) Tab PO 1,000 units HS JEN Administration Famotidine 20 mg 10/08/20 21:00 10/11/20 21:10 Famotidine 20 Mg Tab PO 20 mg 2100 JEN Administration Ferrous Sulfate 325 mg 10/08/20 21:00 10/11/20 21:10 Ferrous Sulfate 325 Mg Tab PO 325 mg HS JEN Administration Sodium Chloride 500 mls @ 50 mls/hr 10/12/20 09:45 10/12/20 10:33 Normal Saline 0.9% IV 10/12/20 19:44 500 mls .Q10H JEN Administration Insulin Human Lispro 0 units 10/08/20 20:11 10/12/20 12:32 Humalog 300 Units/3 Ml Vial SC 4 unit .MILD SLIDING SCALE PRN Administration Mild Correctional Scale Insulin Human Lispro 0 units 10/08/20 20:11 10/11/20 21:20 Humalog 300 Units/3 Ml Vial SC 3 unit .BEDTIME SLIDING SC PRN Administration Bedtime Correctional Scale Latanoprost 1 drop 10/08/20 21:00 10/11/20 21:11 Latanoprost 0.005% Ophth Soln 2.5 Ml Bottle EA EYE 1 drop HS JEN Administration Levothyroxine Sodium 75 mcg 10/09/20 06:00 10/12/20 06:27 Levothyroxine Sodium 75 Mcg Tab PO 75 mcg 0600 JEN Administration Magnesium Oxide 400 mg 10/08/20 21:00 10/11/20 21:10 Magnesium Oxide 400 Mg Tab PO 400 mg HS JEN Administration Envarsus Xr 4 Mg 1 each 10/09/20 09:00 10/12/20 08:41 PO 1 each DAILY JEN Administration Envarsus Xr 1 Mg 3 each 10/09/20 09:00 10/12/20 08:41 PO 3 each DAILY JEN Administration Timolol Maleate 1 drop 10/08/20 21:00 10/12/20 08:36 Timolol 0.5% Ophth Soln 5 Ml Bottle EA EYE 1 drop BID JEN Administration - Exam Neck: negative: supple, symmetric, no JVD, no thyromegaly, no lymphadenopathy, no carotid bruit, JVD Heart: negative: RRR, no murmur, no gallops, no rubs, normal peripheral pulses, irregular, diminshed peripheral pulses, murmur present, II/IV, III/IV Respiratory: negative: CTAB, no wheezes, no rales, no ronchi, normal chest expansion, no tachypnea, normal percussion, rales, rhonchi, tachypneic, wheezes Gastrointestinal: negative: soft, non-tender, non-distended, normal bowel sounds, no palpable masses, no hepatomegaly, no splenomegaly, no bruit, no guarding, no rigidity, tender to palpation, distended, diminished bowl sounds, voluntary guarding Hosp A/P (1) Renal transplant recipient Status: Acute (2) Chronic kidney disease (CKD) stage G3a/A3, moderately decreased glomerular filtration rate (GFR) between 45-59 mL/min/1.73 square meter and albuminuria creatinine ratio greater than 300 mg/g Code(s): N18.31 - CHRONIC KIDNEY DISEASE, STAGE 3A Status: Acute (3) Shortness of breath Code(s): R06.02 - SHORTNESS OF BREATH Status: Acute (4) Acute and chronic respiratory failure with hypoxia Code(s): J96.21 - ACUTE AND CHRONIC RESPIRATORY FAILURE WITH HYPOXIA Status: Acute (5) NSTEMI (non-ST elevated myocardial infarction) Code(s): I21.4 - NON-ST ELEVATION (NSTEMI) MYOCARDIAL INFARCTION Status: Acute (6) DM type 2 (diabetes mellitus, type 2) Status: Chronic (7) Atrial fibrillation with RVR Code(s): I48.91 - UNSPECIFIED ATRIAL FIBRILLATION Status: Acute - Plan Patient was on BiPAP currently off BiPAP. She is currently being diuresed. Significantly elevate troponin most likely secondary to demand related type II. Rate controlled on amiodarone. Patient on aspirin. Patient on Lovenox will renally dose given her renal transplant. Patient currently on tacrolimus will continue. 10/10 pt doing well on amiodarone. will decrease her lasix to daily dosing given her worsening creatinine especially since she is a renal transplant patient. pt's blood cx most likely a contaminant. will continue ceftriaxone until final cx. she will need sleep study per pulmonary. 10/11 we will hold Lasix for now. Will check BMP in the morning. Patient's rate controlled. Continue anticoagulation. 10/12 we will give patient normal saline. She normally takes prednisone 7.5 mg daily. We will give another 5 mg. Will decrease Eliquis to 2-1/2 mg twice a day. We will check a BMP in the morning.
[2020-10-12] MEDS ORDERED: Carvedilol 3.125 MG TAB PO SCH (17:00)
[2020-10-12] MEDS: Cholecalciferol 1,000 UNITS (25 MCG) TAB PO SCH (21:46)
[2020-10-12] MEDS: Atorvastatin Calcium 40 MG TAB PO SCH (21:46)
[2020-10-12] MEDS: Famotidine 20 MG TAB PO SCH (21:46)
[2020-10-12] MEDS: Ferrous Sulfate 325 MG TAB PO SCH (21:47)
[2020-10-12] MEDS: Magnesium Oxide 400 MG TAB PO SCH (21:47)
[2020-10-12] MEDS: Latanoprost 0.005% Ophth Soln 2.5 ml Bottle EA EYE SCH (21:48)
[2020-10-13] MEDS: HumaLOG 300 UNITS/3 ML VIAL SC PRN ×4 (00:10→18:14)
[2020-10-13 04:48] LABS: #Lymphocytes 1.2 thou/uL (1.20-3.40); #Monocytes 0.6 thou/uL (0.11-0.59); %Basophils 0.4 % (0.0-1.0); %Eosinophils 0.6 % (0.0-10.0); %Lymphocytes 15.7 % (21.0-51.0); %Monocytes 7.9 % (0.0-10.0); %Neutrophils 75.5 % (42.0-75.0); Hemoglobin 10.4 g/dL (12.0-16.0); Mean Corpuscular HGB CONC 31.6 g/dL (32.0-36.0); Mean Corpuscular Volume 98.2 fL (78.0-98.0); Platelet Count 153 thou/uL (130-400); RBC Distribution Width 12.3 % (11.5-14.5); Red Blood Cell (RBC) Count 3.35 mill/uL (4.20-5.40); White Blood Cell (WBC) Count 7.9 thou/uL (4.8-10.8)
[2020-10-13 05:09] LABS: Anion Gap 13 mmol/L (10-20); BUN (Urea Nitrogen) 48 mg/dL (9.8-20.1); Calc. Creatinine Clearance 40 mL/min (70-130); Calcium 9.3 mg/dL (7.8-10.44); Carbon Dioxide 30 mmol/L (23-31); Chloride 102 mmol/L (98-107); Glucose 283 mg/dL (80-115); Potassium 4.2 mmol/L (3.5-5.1); Sodium 141 mmol/L (136-145)
[2020-10-13] MEDS: Levothyroxine Sodium 75 MCG TAB PO SCH (05:23)
[2020-10-13] MEDS: Amiodarone 200 MG TAB PO SCH ×2 (08:40→20:44)
[2020-10-13] MEDS: predniSONE 5 MG TAB PO SCH (08:41)
[2020-10-13] MEDS: Aspirin 81 mg Enteric Coated Tablet PO SCH (08:41)
[2020-10-13] MEDS: Apixaban 2.5 MG TAB PO SCH ×2 (08:41→20:44)
[2020-10-13] MEDS: Timolol 0.5% Ophth Soln 5 ml Bottle EA EYE SCH ×2 (08:42→20:45)
[2020-10-13] MEDS: ENVARSUS 1 MG PO SCH (08:42)
[2020-10-13] MEDS: Brimonidine Tartrate 0.2% Ophth Soln 5 ml Bottle EA EYE SCH ×2 (08:42→20:45)
[2020-10-13] MEDS: ENVARSUS 4 MG PO SCH (08:42)
[2020-10-13] MEDS: Sodium Chloride 0.9% 1,000 ML IV SCH ×2 (08:46→18:19)
--- NOTE | 2020-10-13 08:46 | PRG ---
DATE OF SERVICE: 10/13/2020 SUBJECTIVE: Ms. Hoang is a 65-year-old black female status post cadaveric renal transplant and admitted for CHF-diastolic dysfunction. Cardiac echo showed normal EF. She was also noted to have developed atrial fibrillation. She has been started on amiodarone and Eliquis by her switchgear repairer. She voices no new complaints today. No chest pain or shortness of breath. OBJECTIVE: VITAL SIGNS: Blood pressure 119/58, heart rate 52, respiratory rate 16, temperature 97.9, and O2 saturation 97% on room air. GENERAL: Awake, alert, and comfortable, not in distress. SKIN: Adequate turgor. HEENT: Pinkish conjunctivae. Anicteric sclerae. No neck mass. No carotid bruits. No JVD. CHEST: No deformities. LUNGS: Clear breath sounds. No wheezing. No crackles. HEART: Normal sinus rhythm. No murmur. No gallops. No rubs. ABDOMEN: Globular, soft, and nontender. No masses. EXTREMITIES: No edema. No deformities. MEDICATIONS: On October 13, 2020, was reviewed. LABORATORY DATA: October 13, 2020; white count 7.9 and hemoglobin 10.4. October 13, 2020; sodium 141, potassium 4.2, chloride 102, carbon dioxide 30, BUN 48, creatinine 2.26, glucose 283, and calcium is 9.3. Tacrolimus level of October 09, 2020, 3.2. ASSESSMENT AND PLAN: 1. Status post cadaveric renal transplant. Creatinine is slightly higher today at 2.2 from 2.1 yesterday. Tacrolimus level was noted to be lower at 3.2. My plan is to repeat this level again. The patient has been a bit inconsistent prior to admission with her intake of tacrolimus. If it is still on the low side, we will adjust her tacrolimus. Continue other immunosuppressive regimen. Agree with increased prednisone to 7.5 mg tablet once a day. 2. Acute kidney injury. This is hemodynamically-mediated dysfunction. We will start normal saline at 100 mL/hour. 3. Congestive heart failure-diastolic dysfunction, resolved. 4. Atrial fibrillation, rate controlled, currently on amiodarone and Eliquis. Recheck CBC, basic metabolic panel as well as tacrolimus level in a.m. Job ID: [id number]
[2020-10-13] MEDS ORDERED: Insulin Glargine 6 UNITS in Pre-Filled Syringe 1 EACH SC SCH (09:30)
[2020-10-13] MEDS: HumuLIN 70/30 (300 UNITS/3 ML VIAL) SC SCH ×2 (10:20→17:12)
[2020-10-13] MEDS: Cholecalciferol 1,000 UNITS (25 MCG) TAB PO SCH (20:44)
[2020-10-13] MEDS: Atorvastatin Calcium 40 MG TAB PO SCH (20:44)
[2020-10-13] MEDS: Famotidine 20 MG TAB PO SCH (20:44)
[2020-10-13] MEDS: Ferrous Sulfate 325 MG TAB PO SCH (20:44)
[2020-10-13] MEDS: Magnesium Oxide 400 MG TAB PO SCH (20:44)
[2020-10-13] MEDS: Latanoprost 0.005% Ophth Soln 2.5 ml Bottle EA EYE SCH (20:45)
[2020-10-13] MEDS: Insulin Glargine 16 UNITS in Pre-Filled Syringe 1 EACH SC SCH (20:45)
[2020-10-14] MEDS: HumaLOG 300 UNITS/3 ML VIAL SC PRN ×5 (00:03→21:49)
[2020-10-14 04:38] LABS: #Eosinphils 0.1 thou/uL (0.0-0.7); #Lymphocytes 1.9 thou/uL (1.20-3.40); #Monocytes 0.9 thou/uL (0.11-0.59); #Neutrophils 6.2 thou/uL (1.40-6.50); %Basophils 0.2 % (0.0-1.0); %Eosinophils 0.7 % (0.0-10.0); %Lymphocytes 20.7 % (21.0-51.0); %Neutrophils 68.3 % (42.0-75.0); Hemoglobin 9.6 g/dL (12.0-16.0); Mean Corpuscular Hemoglobin 29.9 pg (27.0-31.0); Mean Corpuscular Volume 96.7 fL (78.0-98.0); Mean Platelet Volume 9.3 fL (7.4-10.4); Platelet Count 181 thou/uL (130-400); RBC Distribution Width 12.2 % (11.5-14.5); Red Blood Cell (RBC) Count 3.22 mill/uL (4.20-5.40)
[2020-10-14 05:03] LABS: Anion Gap 15 mmol/L (10-20); BUN (Urea Nitrogen) 47 mg/dL (9.8-20.1); Calc. Creatinine Clearance 42 mL/min (70-130); Calcium 9.2 mg/dL (7.8-10.44); Carbon Dioxide 25 mmol/L (23-31); Chloride 104 mmol/L (98-107); Glucose 232 mg/dL (80-115); Potassium 3.9 mmol/L (3.5-5.1); Sodium 140 mmol/L (136-145)
[2020-10-14] MEDS: Levothyroxine Sodium 75 MCG TAB PO SCH (05:45)
[2020-10-14] MEDS: Sodium Chloride 0.9% 1,000 ML IV SCH ×2 (07:20→18:06)
[2020-10-14] MEDS: HumuLIN 70/30 (300 UNITS/3 ML VIAL) SC SCH ×2 (08:27→11:35)
[2020-10-14] MEDS: Amiodarone 200 MG TAB PO SCH ×2 (08:27→20:18)
[2020-10-14] MEDS: predniSONE 5 MG TAB PO SCH (08:27)
[2020-10-14] MEDS: Aspirin 81 mg Enteric Coated Tablet PO SCH (08:28)
[2020-10-14] MEDS: Timolol 0.5% Ophth Soln 5 ml Bottle EA EYE SCH ×2 (08:29→20:18)
[2020-10-14] MEDS: Apixaban 2.5 MG TAB PO SCH ×2 (08:29→20:19)
[2020-10-14] MEDS: Brimonidine Tartrate 0.2% Ophth Soln 5 ml Bottle EA EYE SCH ×2 (08:29→20:18)
[2020-10-14] MEDS: ENVARSUS 1 MG PO SCH (08:30)
[2020-10-14] MEDS: ENVARSUS 4 MG PO SCH (08:30)
--- NOTE | 2020-10-14 09:44 | PDOC.HOSPP ---
- Subjective Encounter Date: 10/13/20 Encounter Time: 10:30 Subjective: pt up in bed no complains - Objective Vital Signs & Weight: Vital Signs (12 hours) Temp Pulse Resp BP Pulse Ox 10/14/20 07:22 98.5 F 52 L 18 114/51 L 95 10/14/20 03:55 97.9 F 48 L 20 120/57 L 93 L 10/14/20 00:00 53 L Weight Admit Weight 232 lb 9.403 oz Weight 228 lb 3.2 oz Most Recent Monitor Data Heart Rate from ECG 99 NIBP 105/45 NIBP BP-Mean 67 Respiration from ECG 16 SpO2 100 I&O: 10/13/20 10/14/20 10/15/20 06:59 06:59 06:59 Intake Total 0 2300 Output Total 200 Balance 1860 2300 Result Diagrams: 10/14/20 04:15 10/14/20 04:15 Additional Labs: Accuchecks 10/14/20 10/13/20 10/13/20 05:44 23:51 17:47 POC Glucose 171 H 332 H 337 H 10/13/20 12:05 POC Glucose 341 H Hospitalist ROS - Review of Systems Respiratory: denies: cough, dry, shortness of breath, hemoptysis, SOB with excertion, pleuritic pain, sputum, wheezing, other Cardiovascular: denies: chest pain, palpitations, orthopnea, paroxysmal noc. dyspnea, edema, light headedness, other Gastrointestinal: denies: nausea, vomiting, abdominal pain, diarrhea, constipation, melena, hematochezia, other - Medication Medications: Active Medications Generic Name Dose Route Start Last Admin Trade Name Chneg PRN Reason Stop Dose Admin Amiodarone HCl 400 mg 10/11/20 21:00 10/14/20 08:27 Amiodarone 200 Mg Tab PO 400 mg BID JEN Administration Apixaban 2.5 mg 10/12/20 21:00 10/14/20 08:29 Apixaban 2.5 Mg Tab PO 2.5 mg BID JEN Administration Aspirin 81 mg 10/09/20 09:00 10/14/20 08:28 Aspirin 81 Mg Enteric Coated Tablet PO 81 mg DAILY JEN Administration Atorvastatin Calcium 40 mg 10/08/20 21:00 10/13/20 20:44 Atorvastatin Calcium 40 Mg Tab PO 40 mg HS JEN Administration Brimonidine Tartrate 1 drop 10/08/20 21:00 10/14/20 08:29 Brimonidine Tartrate 0.2% Ophth Soln 5 Ml Bottle EA EYE 1 drop BID JEN Administration Cholecalciferol 1,000 units 10/08/20 21:00 10/13/20 20:44 Cholecalciferol 1,000 Units (25 Mcg) Tab PO 1,000 units HS JEN Administration Famotidine 20 mg 10/08/20 21:00 10/13/20 20:44 Famotidine 20 Mg Tab PO 20 mg 2100 JEN Administration Ferrous Sulfate 325 mg 10/08/20 21:00 10/13/20 20:44 Ferrous Sulfate 325 Mg Tab PO 325 mg HS JEN Administration Sodium Chloride 1,000 mls @ 100 mls/hr 10/13/20 08:30 10/14/20 07:20 Normal Saline 0.9% IV 1,000 mls .Q10H JEN Administration Insulin Glargine 16 units/ 0.16 mls @ 0 mls/hr 10/13/20 21:00 10/13/20 20:45 Miscellaneous Medication SC 0.16 mls HS JEN Administration As Directed Insulin Human Isoph/Insulin Regular 3 units 10/13/20 11:30 10/14/20 08:27 Humulin 70/30 (300 Units/3 Ml Vial) SC 3 unit AC JEN Administration Insulin Human Lispro 0 units 10/08/20 20:11 10/14/20 05:46 Humalog 300 Units/3 Ml Vial SC 2 unit .MILD SLIDING SCALE PRN Administration Mild Correctional Scale Insulin Human Lispro 0 units 10/08/20 20:11 10/14/20 00:03 Humalog 300 Units/3 Ml Vial SC 4 unit .BEDTIME SLIDING SC PRN Administration Bedtime Correctional Scale Latanoprost 1 drop 10/08/20 21:00 10/13/20 20:45 Latanoprost 0.005% Ophth Soln 2.5 Ml Bottle EA EYE 1 drop HS JEN Administration Levothyroxine Sodium 75 mcg 10/09/20 06:00 10/14/20 05:45 Levothyroxine Sodium 75 Mcg Tab PO 75 mcg 0600 JEN Administration Magnesium Oxide 400 mg 10/08/20 21:00 10/13/20 20:44 Magnesium Oxide 400 Mg Tab PO 400 mg HS JEN Administration Envarsus Xr 4 Mg 1 each 10/09/20 09:00 10/14/20 08:30 PO 1 each DAILY JEN Administration Envarsus Xr 1 Mg 3 each 10/09/20 09:00 10/14/20 08:30 PO 3 each DAILY JEN Administration Prednisone 7.5 mg 10/13/20 09:00 10/14/20 08:27 Prednisone 5 Mg Tab PO 7.5 mg DAILY JEN Administration Timolol Maleate 1 drop 10/08/20 21:00 10/14/20 08:29 Timolol 0.5% Ophth Soln 5 Ml Bottle EA EYE 1 drop BID JEN Administration - Exam Heart: negative: RRR, no murmur, no gallops, no rubs, normal peripheral pulses, irregular, diminshed peripheral pulses, murmur present, II/IV, III/IV Respiratory: negative: CTAB, no wheezes, no rales, no ronchi, normal chest expansion, no tachypnea, normal percussion, rales, rhonchi, tachypneic, wheezes Gastrointestinal: negative: soft, non-tender, non-distended, normal bowel sounds, no palpable masses, no hepatomegaly, no splenomegaly, no bruit, no guarding, no rigidity, tender to palpation, distended, diminished bowl sounds, voluntary guarding Extremities: negative: no cyanosis, no clubbing, no edema, 1+ LE edema, 2+ LE edema, clubbing Hosp A/P (1) Renal transplant recipient Status: Acute (2) Chronic kidney disease (CKD) stage G3a/A3, moderately decreased glomerular filtration rate (GFR) between 45-59 mL/min/1.73 square meter and albuminuria creatinine ratio greater than 300 mg/g Code(s): N18.31 - CHRONIC KIDNEY DISEASE, STAGE 3A Status: Acute (3) Shortness of breath Code(s): R06.02 - SHORTNESS OF BREATH Status: Acute (4) Acute and chronic respiratory failure with hypoxia Code(s): J96.21 - ACUTE AND CHRONIC RESPIRATORY FAILURE WITH HYPOXIA Status: Acute (5) NSTEMI (non-ST elevated myocardial infarction) Code(s): I21.4 - NON-ST ELEVATION (NSTEMI) MYOCARDIAL INFARCTION Status: Acute (6) DM type 2 (diabetes mellitus, type 2) Status: Chronic (7) Atrial fibrillation with RVR Code(s): I48.91 - UNSPECIFIED ATRIAL FIBRILLATION Status: Acute - Plan Patient was on BiPAP currently off BiPAP. She is currently being diuresed. Significantly elevate troponin most likely secondary to demand related type II. Rate controlled on amiodarone. Patient on aspirin. Patient on Lovenox will renally dose given her renal transplant. Patient currently on tacrolimus will continue. 10/10 pt doing well on amiodarone. will decrease her lasix to daily dosing given her worsening creatinine especially since she is a renal transplant patient. pt's blood cx most likely a contaminant. will continue ceftriaxone until final cx. she will need sleep study per pulmonary. 10/11 we will hold Lasix for now. Will check BMP in the morning. Patient's rate controlled. Continue anticoagulation. 10/12 we will give patient normal saline. She normally takes prednisone 7.5 mg daily. We will give another 5 mg. Will decrease Eliquis to 2-1/2 mg twice a day. We will check a BMP in the morning. 10/13 pt's creatinine is worse today. will start pt on iv fluids. will continue to monitor. will check bmp in am. Amio taper 400mg bid x2 weeks then 200mg x2 weeks then 200mg daily per cardiology.
--- NOTE | 2020-10-14 10:42 | EKG ---
Test Reason : Blood Pressure : / mmHG Vent. Rate : 133 BPM Atrial Rate : 144 BPM P-R Int : 000 ms QRS Dur : 090 ms QT Int : 326 ms P-R-T Axes : 000 020 188 degrees QTc Int : 485 ms Atrial fibrillation with rapid ventricular response Abnormal ECG Confirmed by YOU MIXON, AYSHA Zapata ([id number]), content editor ELIS RASHID ([id number]) on 10/14/2020 10:42:05 AM Referred By: Confirmed By:AYSHA ORTA MD
--- NOTE | 2020-10-14 10:42 | EKG ---
Test Reason : Blood Pressure : / mmHG Vent. Rate : 134 BPM Atrial Rate : 147 BPM P-R Int : 000 ms QRS Dur : 098 ms QT Int : 288 ms P-R-T Axes : 000 030 175 degrees QTc Int : 430 ms Sinus tachycardia Abnormal ECG Confirmed by YOU MIXON, AYSHA Zapata ([id number]), offline editor ELIS RASHID ([id number]) on 10/14/2020 10:41:57 AM Referred By: Confirmed By:AYSHA ORTA MD
--- NOTE | 2020-10-14 11:33 | PRG ---
DATE OF SERVICE: 10/14/2020 SUBJECTIVE: Ms. Hoang is a 65-year-old black female who was admitted for CHF. She was found to be in atrial fibrillation and was restarted on amiodarone and anticoagulation. Cardiac echo showed a normal EF. We are following up for her transplant management. In addition, there is a superimposed acute kidney injury with a creatinine worsening over time. Her creatinine was noted to have peaked yesterday at 2.26. We have discontinued the diuretics and in addition, the patient has been started on normal saline at 100 mL an hour. Creatinine today is 2.16. She voices no new complaints. She denies any chest pain or shortness of breath. Her tacrolimus level is also noted to be subtherapeutic at 3. We are re-doing this again and if it is still below therapeutic levels of around 6-8, we will increase her tacrolimus to 8 mg from 7 mg per day. No complaints of chest pain or shortness of breath. OBJECTIVE: VITAL SIGNS: Blood pressure 114/51, heart rate 52, respiratory rate 18, temperature 98.5, O2 saturation 95% on room air. GENERAL: Awake, alert, sitting comfortable, obese, not in distress. SKIN: Adequate turgor. HEENT: She has a slightly pale conjunctivae. Anicteric sclerae. NECK: No neck mass. No carotid bruits. No JVD. CHEST: No deformities. LUNGS: Clear breath sounds. HEART: Normal sinus rhythm. No murmur. No gallops. No rubs. ABDOMEN: Globular, soft, nontender. No masses. EXTREMITIES: No edema. No deformities. MEDICATIONS: Medications of October 14, 2020, was reviewed. LABORATORY DATA: October 14, 2020: White count 9, hemoglobin 9.6. Sodium 140, potassium 3.9, chloride 104, carbon dioxide 25, BUN 47, creatinine 2.16, glucose 230, calcium 9.2. ASSESSMENT AND PLAN: 1. Borderline anemia. We will continue to observe. 2. Status post cadaveric renal transplant. Creatinine noted 2.1. We will continue current immunosuppressive regimen. We will await for the repeat tacrolimus level with the patient. 3. Acute kidney injury, superimposed prerenal azotemia. Diuretics on hold. Continue normal saline 100 mL/h. 4. Bradycardia - this may be reflection of the current amiodarone regimen. Cardiology is following and this may need to be adjusted. 5. Recheck CBC, basic met in a.m. Job ID: [id number]
--- NOTE | 2020-10-14 12:22 | PDOC.HOSPP ---
- Subjective Encounter Date: 10/14/20 Encounter Time: 11:00 Subjective: Patient seen and examined with volume overload and atrial fibrillation. No chest pain or shortness of breath at rest. No fever or chills reported. - Objective Vital Signs & Weight: Vital Signs (12 hours) Temp Pulse Pulse Pulse Resp BP BP 10/14/20 12:05 98.6 F 56 L 18 10/14/20 10:30 51 L 51 L 104/56 L 92/39 L 10/14/20 07:22 98.5 F 52 L 18 10/14/20 03:55 97.9 F 48 L 20 BP BP Pulse Ox Pulse Ox Pulse Ox 10/14/20 12:05 103/46 L 93 L 10/14/20 10:30 95 94 L 10/14/20 07:22 114/51 L 95 10/14/20 03:55 120/57 L 93 L Weight Admit Weight 232 lb 9.403 oz Weight 228 lb 3.2 oz Most Recent Monitor Data Heart Rate from ECG 99 NIBP 105/45 NIBP BP-Mean 67 Respiration from ECG 16 SpO2 100 I&O: 10/13/20 10/14/20 10/15/20 06:59 06:59 06:59 Intake Total 0 2300 Output Total 200 Balance 1860 2300 Result Diagrams: 10/15/20 03:54 10/15/20 03:54 Additional Labs: Accuchecks 10/14/20 10/14/20 10/13/20 11:54 05:44 23:51 POC Glucose 228 H 171 H 332 H 10/13/20 17:47 POC Glucose 337 H Abnormal Lab Results - Last 48 hrs 10/13/20 04:29: BUN 48 H, Creatinine 2.26 H 10/13/20 04:29: RBC 3.35 L, Hgb 10.4 L, Hct 32.9 L, MCV 98.2 H, MCHC 31.6 L, Neutrophils % 75.5 H, Lymphocytes % 15.7 L, Monocytes # 0.6 H 10/14/20 04:15: BUN 47 H, Creatinine 2.16 H 10/14/20 04:15: RBC 3.22 L, Hgb 9.6 L, Hct 31.1 L, MCHC 31.0 L, Lymphocytes % 20.7 L, Monocytes # 0.9 H Microbiology - Entire Visit 10/08/20 17:00 Venous blood - Left Arm Blood Culture - Final NO GROWTH IN 5 DAYS 10/08/20 17:09 Venous blood - Left Arm Blood Culture - Final Coagulase Neg Staphylococcus Coagulase Neg Staphylococcus#2 Coagulase Neg Staphylococcus#3 EKG Reviewed by me: Yes (Sinus rhythm on telemetry) Hospitalist ROS - Review of Systems Respiratory: denies: cough, dry, shortness of breath, hemoptysis, SOB with excertion, pleuritic pain, sputum, wheezing, other Cardiovascular: denies: chest pain, palpitations, orthopnea, paroxysmal noc. dyspnea, edema, light headedness, other - Medication Medications: Active Medications Generic Name Dose Route Start Last Admin Trade Name Freq PRN Reason Stop Dose Admin Amiodarone HCl 400 mg 10/11/20 21:00 10/14/20 08:27 Amiodarone 200 Mg Tab PO 400 mg BID JEN Administration Apixaban 2.5 mg 10/12/20 21:00 10/14/20 08:29 Apixaban 2.5 Mg Tab PO 2.5 mg BID JEN Administration Aspirin 81 mg 10/09/20 09:00 10/14/20 08:28 Aspirin 81 Mg Enteric Coated Tablet PO 81 mg DAILY JEN Administration Atorvastatin Calcium 40 mg 10/08/20 21:00 10/13/20 20:44 Atorvastatin Calcium 40 Mg Tab PO 40 mg HS JEN Administration Brimonidine Tartrate 1 drop 10/08/20 21:00 10/14/20 08:29 Brimonidine Tartrate 0.2% Ophth Soln 5 Ml Bottle EA EYE 1 drop BID JEN Administration Cholecalciferol 1,000 units 10/08/20 21:00 10/13/20 20:44 Cholecalciferol 1,000 Units (25 Mcg) Tab PO 1,000 units HS JEN Administration Famotidine 20 mg 10/08/20 21:00 10/13/20 20:44 Famotidine 20 Mg Tab PO 20 mg 2100 JEN Administration Ferrous Sulfate 325 mg 10/08/20 21:00 10/13/20 20:44 Ferrous Sulfate 325 Mg Tab PO 325 mg HS JEN Administration Sodium Chloride 1,000 mls @ 100 mls/hr 10/13/20 08:30 10/14/20 07:20 Normal Saline 0.9% IV 1,000 mls .Q10H JEN Administration Insulin Glargine 16 units/ 0.16 mls @ 0 mls/hr 10/13/20 21:00 10/13/20 20:45 Miscellaneous Medication SC 0.16 mls HS JEN Administration As Directed Insulin Human Isoph/Insulin Regular 3 units 10/13/20 11:30 10/14/20 11:35 Humulin 70/30 (300 Units/3 Ml Vial) SC 3 unit AC JEN Administration Insulin Human Lispro 0 units 10/08/20 20:11 10/14/20 12:06 Humalog 300 Units/3 Ml Vial SC 4 unit .MILD SLIDING SCALE PRN Administration Mild Correctional Scale Insulin Human Lispro 0 units 10/08/20 20:11 10/14/20 00:03 Humalog 300 Units/3 Ml Vial SC 4 unit .BEDTIME SLIDING SC PRN Administration Bedtime Correctional Scale Latanoprost 1 drop 10/08/20 21:00 10/13/20 20:45 Latanoprost 0.005% Ophth Soln 2.5 Ml Bottle EA EYE 1 drop HS JEN Administration Levothyroxine Sodium 75 mcg 10/09/20 06:00 10/14/20 05:45 Levothyroxine Sodium 75 Mcg Tab PO 75 mcg 0600 JEN Administration Magnesium Oxide 400 mg 10/08/20 21:00 10/13/20 20:44 Magnesium Oxide 400 Mg Tab PO 400 mg HS JEN Administration Envarsus Xr 4 Mg 1 each 10/09/20 09:00 10/14/20 08:30 PO 1 each DAILY JEN Administration Envarsus Xr 1 Mg 3 each 10/09/20 09:00 10/14/20 08:30 PO 3 each DAILY JEN Administration Prednisone 7.5 mg 10/13/20 09:00 10/14/20 08:27 Prednisone 5 Mg Tab PO 7.5 mg DAILY JEN Administration Timolol Maleate 1 drop 10/08/20 21:00 10/14/20 08:29 Timolol 0.5% Ophth Soln 5 Ml Bottle EA EYE 1 drop BID JEN Administration - Exam General Appearance: NAD Neck: supple, no JVD Heart: RRR, no gallops Respiratory: no wheezes, no rales, rhonchi Gastrointestinal: soft, non-tender, normal bowel sounds, distended Extremities: no cyanosis, no clubbing Neurological: no new deficit Psychiatric: A&O x 3 Hosp A/P - Plan Acute hypoxic respiratory failure requiring noninvasive positive pressure ventilation Acute on chronic diastolic heart failure exacerbation DEANNE on CKD stage III with a history of renal transplant A. fib with RVRconverted to sinus rhythm Diabetes mellitus type 2 Elevated troponin due to demand ischemia/type II MIPOA Morbid obesity with a BMI 40.4 Hypothyroidism Glaucoma Hyperlipidemia Plan: Continue IV fluids per nephrology. Continue amiodarone loading. Continue Eliquis. Continue current dose of Lantus with sliding scale. Will adjust Lantus later today or in a.m. Continue immunosuppressants. Discontinue 70/30 insulin. A.m. labs. Patient understands the risk associated with anticoagulation. Echocardiogram reviewed
[2020-10-14] MEDS: Famotidine 20 MG TAB PO SCH (20:18)
[2020-10-14] MEDS: Latanoprost 0.005% Ophth Soln 2.5 ml Bottle EA EYE SCH (20:18)
[2020-10-14] MEDS: Magnesium Oxide 400 MG TAB PO SCH (20:19)
[2020-10-14] MEDS: Ferrous Sulfate 325 MG TAB PO SCH (20:19)
[2020-10-14] MEDS: Cholecalciferol 1,000 UNITS (25 MCG) TAB PO SCH (20:19)
[2020-10-14] MEDS: Atorvastatin Calcium 40 MG TAB PO SCH (20:19)
[2020-10-14] MEDS: Insulin Glargine 16 UNITS in Pre-Filled Syringe 1 EACH SC SCH (21:50)
[2020-10-15] MEDS: Sodium Chloride 0.9% 1,000 ML IV SCH ×4 (04:16→19:55)
[2020-10-15 04:32] LABS: #Eosinphils 0.1 thou/uL (0.0-0.7); #Lymphocytes 1.7 thou/uL (1.20-3.40); #Monocytes 0.8 thou/uL (0.11-0.59); #Neutrophils 5.4 thou/uL (1.40-6.50); %Basophils 0.4 % (0.0-1.0); %Eosinophils 1.1 % (0.0-10.0); %Lymphocytes 21.3 % (21.0-51.0); %Monocytes 10.4 % (0.0-10.0); %Neutrophils 66.8 % (42.0-75.0); Hemoglobin 9.8 g/dL (12.0-16.0); Mean Corpuscular HGB CONC 31.1 g/dL (32.0-36.0); Mean Corpuscular Volume 96.5 fL (78.0-98.0); Mean Platelet Volume 10.2 fL (7.4-10.4); Platelet Count 152 thou/uL (130-400); RBC Distribution Width 12.3 % (11.5-14.5); Red Blood Cell (RBC) Count 3.28 mill/uL (4.20-5.40); White Blood Cell (WBC) Count 8.1 thou/uL (4.8-10.8)
[2020-10-15] MEDS: Levothyroxine Sodium 75 MCG TAB PO SCH (04:33)
[2020-10-15 04:46] LABS: Anion Gap 17 mmol/L (10-20); BUN (Urea Nitrogen) 46 mg/dL (9.8-20.1); Calc. Creatinine Clearance 42 mL/min (70-130); Calcium 8.9 mg/dL (7.8-10.44); Carbon Dioxide 21 mmol/L (23-31); Chloride 108 mmol/L (98-107); Glucose 287 mg/dL (80-115); Potassium 4.2 mmol/L (3.5-5.1); Sodium 142 mmol/L (136-145)
[2020-10-15] MEDS: HumaLOG 300 UNITS/3 ML VIAL SC PRN ×4 (05:36→21:18)
[2020-10-15] MEDS: Aspirin 81 mg Enteric Coated Tablet PO SCH (08:16)
[2020-10-15] MEDS: predniSONE 5 MG TAB PO SCH (08:16)
[2020-10-15] MEDS: Brimonidine Tartrate 0.2% Ophth Soln 5 ml Bottle EA EYE SCH ×2 (08:17→19:54)
[2020-10-15] MEDS: Amiodarone 200 MG TAB PO SCH ×2 (08:17→19:53)
[2020-10-15] MEDS: Apixaban 2.5 MG TAB PO SCH ×2 (08:17→19:53)
[2020-10-15] MEDS: Timolol 0.5% Ophth Soln 5 ml Bottle EA EYE SCH ×2 (08:17→19:54)
[2020-10-15] MEDS: ENVARSUS 4 MG PO SCH (08:18)
[2020-10-15] MEDS: ENVARSUS 1 MG PO SCH (08:18)
--- NOTE | 2020-10-15 10:23 | PRG ---
DATE OF SERVICE: 10/15/2020 SUBJECTIVE: Ms. Hoang is a 65-year-old black female, who is status post cadaveric renal transplant and was admitted due to CHF, probably from a diastolic dysfunction. She was also noted to be in atrial fibrillation and for that reason, has been started on amiodarone as well as on anticoagulation by her [employer] or [employer]. During this hospitalization, she developed an acute kidney injury that was hemodynamically-mediated renal dysfunction secondary to her CHF and diuretic use. She is currently off diuretics. Her shortness of breath is much improved. In addition, she is on maintenance IV fluid of normal saline at 100 mL/hour. She voices no new complaints today. No chest pain or shortness of breath. OBJECTIVE: VITAL SIGNS: Blood pressure is 104/58, heart rate 58, respiratory rate 18, temperature 98.6, and O2 sats 99%. GENERAL: The patient is noted to be awake, alert, sitting comfortable, obese, not in distress. SKIN: Adequate turgor. HEENT: Slightly pale conjunctivae. Anicteric sclerae. NECK: No neck mass. No carotid bruits. No JVD. CHEST: No deformities. LUNGS: Clear breath sounds. No wheezing. No crackles. HEART: Normal sinus rhythm. No murmurs. No gallops. No rubs. ABDOMEN: Globular, soft, nontender. No masses. EXTREMITIES: No edema. No deformities. MEDICATIONS: Medications of October 15, 2020, were reviewed. LABORATORY DATA: Laboratories of October 15, 2020; white count 8.1 and hemoglobin 9.8. Sodium 142, potassium 4.2, chloride 108, carbon dioxide 21, BUN 46, creatinine 2.19, glucose 287, and calcium 8.9. ASSESSMENT AND PLAN: 1. Acute kidney injury-superimposed hemodynamically-mediated renal dysfunction. Creatinine noted to be stable at 2.19. Please note, creatinine peaked at a value of 2.26. My bias is to further increase normal saline from 100 to 125 mL/hour. No indication for any dialytic intervention. 2. Status post cadaveric renal transplant. Continue immunosuppressive regimen. We are awaiting for the repeat tacrolimus level. If it is still below 6, we will consider increasing the total tacrolimus dose from 7 to 8 mg per day. 3. Status post congestive heart failure/diastolic dysfunction, clinically much improved. 4. Atrial fibrillation, currently on amiodarone. Heart rate is much improved today. 5. We will recheck CBC and base met in a.m. Job ID: [id number]
--- NOTE | 2020-10-15 18:54 | PDOC.HOSPP ---
- Subjective Encounter Date: 10/15/20 Encounter Time: 09:45 Subjective: Patient seen and examined for respiratory failure with acute kidney injury. Denies any new complaints. No chest pain, shortness of breath or palpitations reported. - Objective Vital Signs & Weight: Vital Signs (12 hours) Temp Pulse Pulse Pulse Resp BP BP 10/15/20 15:55 98.5 F 57 L 18 10/15/20 14:24 53 L 59 L 109/51 L 118/56 L 10/15/20 12:30 98.4 F 55 L 16 10/15/20 08:12 98.6 F 58 L 18 BP Pulse Ox Pulse Ox 10/15/20 15:55 109/51 L 96 10/15/20 14:24 95 10/15/20 12:30 107/58 L 98 10/15/20 08:12 104/58 L 99 Weight Admit Weight 232 lb 9.403 oz Weight 227 lb 1.6 oz Most Recent Monitor Data Heart Rate from ECG 99 NIBP 105/45 NIBP BP-Mean 67 Respiration from ECG 16 SpO2 100 I&O: 10/14/20 10/15/20 10/16/20 06:59 06:59 06:59 Intake Total 2300 2520 2290 Balance 2300 2520 2290 Result Diagrams: 10/15/20 03:54 10/15/20 03:54 Additional Labs: Accuchecks 10/15/20 10/15/20 10/15/20 16:59 11:57 05:17 POC Glucose 286 H 226 H 232 H 10/14/20 21:04 POC Glucose 316 H Abnormal Lab Results - Last 48 hrs 10/14/20 04:15: BUN 47 H, Creatinine 2.16 H 10/14/20 04:15: RBC 3.22 L, Hgb 9.6 L, Hct 31.1 L, MCHC 31.0 L, Lymphocytes % 20.7 L, Monocytes # 0.9 H 10/15/20 03:54: Chloride 108 H, Carbon Dioxide 21 L, BUN 46 H, Creatinine 2.19 H 10/15/20 03:54: RBC 3.28 L, Hgb 9.8 L, Hct 31.7 L, MCHC 31.1 L, Monocytes % 10.4 H, Monocytes # 0.8 H Microbiology - Entire Visit 10/08/20 17:00 Venous blood - Left Arm Blood Culture - Final NO GROWTH IN 5 DAYS 10/08/20 17:09 Venous blood - Left Arm Blood Culture - Final Coagulase Neg Staphylococcus Coagulase Neg Staphylococcus#2 Coagulase Neg Staphylococcus#3 EKG Reviewed by me: Yes (Sinus rhythm on telemetry) Hospitalist ROS - Review of Systems Cardiovascular: denies: chest pain, palpitations, orthopnea, paroxysmal noc. dyspnea, edema, light headedness, other Gastrointestinal: reports: constipation. denies: nausea, vomiting, abdominal pain, diarrhea, melena, hematochezia, other - Medication Medications: Active Medications Generic Name Dose Route Start Last Admin Trade Name Freq PRN Reason Stop Dose Admin Amiodarone HCl 400 mg 10/11/20 21:00 10/15/20 08:17 Amiodarone 200 Mg Tab PO 400 mg BID JEN Administration Apixaban 2.5 mg 10/12/20 21:00 10/15/20 08:17 Apixaban 2.5 Mg Tab PO 2.5 mg BID JEN Administration Aspirin 81 mg 10/09/20 09:00 10/15/20 08:16 Aspirin 81 Mg Enteric Coated Tablet PO 81 mg DAILY JEN Administration Atorvastatin Calcium 40 mg 10/08/20 21:00 10/14/20 20:19 Atorvastatin Calcium 40 Mg Tab PO 40 mg HS JEN Administration Brimonidine Tartrate 1 drop 10/08/20 21:00 10/15/20 08:17 Brimonidine Tartrate 0.2% Ophth Soln 5 Ml Bottle EA EYE 1 drop BID JEN Administration Cholecalciferol 1,000 units 10/08/20 21:00 10/14/20 20:19 Cholecalciferol 1,000 Units (25 Mcg) Tab PO 1,000 units HS JEN Administration Famotidine 20 mg 10/08/20 21:00 10/14/20 20:18 Famotidine 20 Mg Tab PO 20 mg 2100 JEN Administration Ferrous Sulfate 325 mg 10/08/20 21:00 10/14/20 20:19 Ferrous Sulfate 325 Mg Tab PO 325 mg HS JEN Administration Insulin Glargine 16 units/ 0.16 mls @ 0 mls/hr 10/13/20 21:00 10/14/20 21:50 Miscellaneous Medication SC 0.16 mls HS JEN Administration As Directed Sodium Chloride 1,000 mls @ 125 mls/hr 10/15/20 09:42 10/15/20 17:15 Normal Saline 0.9% IV Not Given .Q8H JEN Insulin Human Lispro 0 units 10/08/20 20:11 10/14/20 21:49 Humalog 300 Units/3 Ml Vial SC 4 unit .BEDTIME SLIDING SC PRN Administration Bedtime Correctional Scale Insulin Human Lispro 0 units 10/14/20 12:25 10/15/20 17:07 Humalog 300 Units/3 Ml Vial SC 6 unit .MODERATE SLIDING SC PRN Administration Moderate Correctional Scale Latanoprost 1 drop 10/08/20 21:00 10/14/20 20:18 Latanoprost 0.005% Ophth Soln 2.5 Ml Bottle EA EYE 1 drop HS JEN Administration Levothyroxine Sodium 75 mcg 10/09/20 06:00 10/15/20 04:33 Levothyroxine Sodium 75 Mcg Tab PO 75 mcg 0600 JEN Administration Magnesium Oxide 400 mg 10/08/20 21:00 10/14/20 20:19 Magnesium Oxide 400 Mg Tab PO 400 mg HS JEN Administration Envarsus Xr 4 Mg 1 each 10/09/20 09:00 10/15/20 08:18 PO 1 each DAILY JEN Administration Envarsus Xr 1 Mg 3 each 10/09/20 09:00 10/15/20 08:18 PO 3 each DAILY JEN Administration Prednisone 7.5 mg 10/13/20 09:00 10/15/20 08:16 Prednisone 5 Mg Tab PO 7.5 mg DAILY JEN Administration Timolol Maleate 1 drop 10/08/20 21:00 10/15/20 08:17 Timolol 0.5% Ophth Soln 5 Ml Bottle EA EYE 1 drop BID JEN Administration - Exam General Appearance: NAD Heart: RRR, no gallops Respiratory: no wheezes, no ronchi Gastrointestinal: soft, non-distended, normal bowel sounds Extremities: no cyanosis, no clubbing Neurological: no new deficit Hosp A/P - Plan DVT proph w/SCDs Acute hypoxic respiratory failure requiring NIPPV Acute on chronic diastolic heart failure exacerbation DEANNE on CKD stage III with a history of renal transplant A. fib with RVRconverted to sinus rhythm Diabetes mellitus type 2 Elevated troponin due to demand ischemia/type II [place] Morbid obesity with a BMI 40.4 Hypothyroidism Glaucoma Hyperlipidemia Plan: Continue IV fluids per nephrology. Increase Lantus to 22 units nightly. Continue sliding scale. Continue anticoagulation with amiodarone loading. Continue other medications as above. Continue immunosuppressants for renal transplant. Recheck labs in a.m. tacrolimus level pending at this time
[2020-10-15] MEDS ORDERED: Polyethylene Glycol 3350 17 GM Packet PO SCH (19:30)
[2020-10-15] MEDS: Atorvastatin Calcium 40 MG TAB PO SCH (19:53)
[2020-10-15] MEDS: Latanoprost 0.005% Ophth Soln 2.5 ml Bottle EA EYE SCH (19:53)
[2020-10-15] MEDS: Acetaminophen 500 MG TAB PO PRN (19:54)
[2020-10-15] MEDS: Famotidine 20 MG TAB PO SCH (19:54)
[2020-10-15] MEDS: Magnesium Oxide 400 MG TAB PO SCH (19:54)
[2020-10-15] MEDS: Cholecalciferol 1,000 UNITS (25 MCG) TAB PO SCH (19:55)
[2020-10-15] MEDS: Ferrous Sulfate 325 MG TAB PO SCH (19:55)
[2020-10-15] MEDS: Insulin Glargine 22 UNITS in Pre-Filled Syringe SC SCH (21:17)
[2020-10-16 04:11] LABS: #Basophils 0.1 thou/uL (0.0-0.2); #Lymphocytes 1.6 thou/uL (1.20-3.40); #Monocytes 0.8 thou/uL (0.11-0.59); %Basophils 0.5 % (0.0-1.0); %Eosinophils 0.4 % (0.0-10.0); %Monocytes 8.8 % (0.0-10.0); %Neutrophils 73.3 % (42.0-75.0); Hemoglobin 9.9 g/dL (12.0-16.0); Mean Corpuscular HGB CONC 30.8 g/dL (32.0-36.0); Mean Corpuscular Hemoglobin 29.6 pg (27.0-31.0); Mean Corpuscular Volume 96.1 fL (78.0-98.0); Mean Platelet Volume 9.5 fL (7.4-10.4); Platelet Count 171 thou/uL (130-400); RBC Distribution Width 12.3 % (11.5-14.5); Red Blood Cell (RBC) Count 3.34 mill/uL (4.20-5.40); White Blood Cell (WBC) Count 9.5 thou/uL (4.8-10.8)
[2020-10-16 04:30] LABS: Anion Gap 15 mmol/L (10-20); BUN (Urea Nitrogen) 44 mg/dL (9.8-20.1); Calc. Creatinine Clearance 47 mL/min (70-130); Calcium 9.1 mg/dL (7.8-10.44); Carbon Dioxide 19 mmol/L (23-31); Chloride 110 mmol/L (98-107); Glucose 290 mg/dL (80-115); Potassium 4.3 mmol/L (3.5-5.1); Sodium 140 mmol/L (136-145)
[2020-10-16] MEDS: Levothyroxine Sodium 75 MCG TAB PO SCH (05:33)
[2020-10-16] MEDS: HumaLOG 300 UNITS/3 ML VIAL SC PRN ×4 (05:33→21:24)
[2020-10-16] MEDS: Brimonidine Tartrate 0.2% Ophth Soln 5 ml Bottle EA EYE SCH ×2 (08:19→21:17)
[2020-10-16] MEDS: Timolol 0.5% Ophth Soln 5 ml Bottle EA EYE SCH ×2 (08:19→21:21)
[2020-10-16] MEDS: Polyethylene Glycol 3350 17 GM Packet PO SCH (08:21)
[2020-10-16] MEDS: Aspirin 81 mg Enteric Coated Tablet PO SCH (08:21)
[2020-10-16] MEDS: predniSONE 5 MG TAB PO SCH (08:21)
[2020-10-16] MEDS: Apixaban 2.5 MG TAB PO SCH ×2 (08:21→21:16)
[2020-10-16] MEDS: Amiodarone 200 MG TAB PO SCH ×2 (08:21→21:16)
[2020-10-16] MEDS: ENVARSUS 4 MG PO SCH (08:23)
[2020-10-16] MEDS: ENVARSUS 1 MG PO SCH (08:23)
--- NOTE | 2020-10-16 08:48 | PRG ---
DATE OF SERVICE: 10/16/2020 SUBJECTIVE: Ms. Hoang is a 65-year-old black female, who was initially admitted for CHF from diastolic dysfunction. She was empirically diuresed and subsequently renal function was noted to have worsened. We placed the diuretics on hold and she was empirically given volume repletion. Yesterday due to the relatively unimproved creatinine, we increased IV fluid from 100-125 mL per hour. This morning, she is complaining of mild shortness of breath on lying down. She denies any associated chest pain with this. Please note, she was noted to be in atrial fibrillation on admission; for that reason, is on amiodarone and anticoagulation. OBJECTIVE: VITAL SIGNS: Blood pressure 122/60, heart rate 51, respiratory rate 16, temperature 98.3, and O2 saturation 97%. GENERAL: The patient is noted to be awake, sitting comfortable, not in distress, obese. SKIN: Adequate turgor. HEENT: She has a slightly pale conjunctivae. Anicteric sclerae. NECK: No neck mass. No carotid bruits. No JVD. CHEST: No deformities. LUNGS: Decreased breath sounds. HEART: Bradycardic. No murmurs. No gallops. No rubs. ABDOMEN: Globular, soft, nontender. No masses. EXTREMITIES: No edema. No deformities. MEDICATIONS: Medications of October 16, 2020, were reviewed. LABORATORY DATA: Laboratories of October 16, 2020; white count 9.5, hemoglobin 9.9. Sodium 140, potassium 4.3, chloride 110, carbon dioxide 19, BUN 44, creatinine 1.94, glucose 290, calcium 9.1. ASSESSMENT AND PLAN: 1. Shortness of breath-we will discontinue IV fluids. We will do a chest x-ray. If chest x-ray shows evidence of congestive heart failure, we will give a one time dose of Lasix 40 mg IV. 2. Status post cadaveric renal transplant, stabilizing renal function. She had a superimposed acute kidney injury that was hemodynamically-mediated renal dysfunction. Creatinine improved from 2.1 to 1.9. Due to the complaint of mild shortness of breath, we will discontinue IV fluid. We are awaiting the repeat tacrolimus level. We will adjust tacrolimus medications as needed. 3. Borderline anemia. We will continue to observe. 4. Acute kidney injury, this is superimposed hemodynamically-mediated dysfunction. We will be rechecking a CBC, basic met, chest x-ray PA and lateral today. Job ID: [id number]
--- NOTE | 2020-10-16 09:22 | RAD ---
EXAM: XR Chest Pa Lat STANDARD PROVIDED CLINICAL HISTORY: Shortness of breath COMPARISON: 10/08/2020 FINDINGS: The cardiac silhouette remains enlarged. There is improvement in the degree of pulmonary vascular con gestion. There is blunting of the right costophrenic angle that may reflect small volume pleural fluid. Adjacent subsegmental atelectatic change and/or infiltrate. No pneumothorax is evident. Vascul ar calcification is again seen. IMPRESSION: 1. Cardiomegaly with improved pulmonary vascular congestion. 2. Small right pleural fluid with adjacent atelectasis and/or infiltrate.
[2020-10-16] MEDS: Atorvastatin Calcium 40 MG TAB PO SCH (21:16)
[2020-10-16] MEDS: Cholecalciferol 1,000 UNITS (25 MCG) TAB PO SCH (21:16)
[2020-10-16] MEDS: Magnesium Oxide 400 MG TAB PO SCH (21:16)
[2020-10-16] MEDS: Ferrous Sulfate 325 MG TAB PO SCH (21:16)
[2020-10-16] MEDS: Famotidine 20 MG TAB PO SCH (21:18)
[2020-10-16] MEDS: Insulin Glargine 22 UNITS in Pre-Filled Syringe SC SCH (21:18)
[2020-10-16] MEDS: Latanoprost 0.005% Ophth Soln 2.5 ml Bottle EA EYE SCH (21:18)
--- NOTE | 2020-10-16 22:37 | PDOC.HOSPP ---
- Subjective Encounter Date: 10/16/20 Encounter Time: 14:00 Subjective: Patient seen and examined for DAYSI with CHF. Complains of shortness of breath on exertion. Denies any chest pain or palpitations. - Objective Vital Signs & Weight: Vital Signs (12 hours) Temp Pulse Resp BP BP Pulse Ox 10/16/20 21:21 56 L 124/57 L 10/16/20 17:00 98.9 F 54 L 18 116/57 L 94 L 10/16/20 13:05 98.7 F 47 L 16 115/56 L 93 L Weight Admit Weight 232 lb 9.403 oz Weight 229 lb Most Recent Monitor Data Heart Rate from ECG 99 NIBP 105/45 NIBP BP-Mean 67 Respiration from ECG 16 SpO2 100 I&O: 10/15/20 10/16/20 10/17/20 06:59 06:59 06:59 Intake Total 2520 2290 700 Output Total 1 Balance 2520 2290 699 Result Diagrams: 10/16/20 03:54 10/16/20 03:54 Additional Labs: Accuchecks 10/16/20 10/16/20 10/16/20 20:55 17:09 05:31 POC Glucose 240 H 245 H 240 H Abnormal Lab Results - Last 48 hrs 10/15/20 03:54: Chloride 108 H, Carbon Dioxide 21 L, BUN 46 H, Creatinine 2.19 H 10/15/20 03:54: RBC 3.28 L, Hgb 9.8 L, Hct 31.7 L, MCHC 31.1 L, Monocytes % 10.4 H, Monocytes # 0.8 H 10/16/20 03:54: RBC 3.34 L, Hgb 9.9 L, Hct 32.1 L, MCHC 30.8 L, Lymphocytes % 17.0 L, Neutrophils # 7.0 H, Monocytes # 0.8 H 10/16/20 03:54: Chloride 110 H, Carbon Dioxide 19 L, BUN 44 H, Creatinine 1.94 H Microbiology - Entire Visit 10/08/20 17:00 Venous blood - Left Arm Blood Culture - Final NO GROWTH IN 5 DAYS 10/08/20 17:09 Venous blood - Left Arm Blood Culture - Final Coagulase Neg Staphylococcus Coagulase Neg Staphylococcus#2 Coagulase Neg Staphylococcus#3 EKG Reviewed by me: Yes (Sinus rhythm on telemetry) Hospitalist ROS - Review of Systems Respiratory: denies: cough, dry, shortness of breath, hemoptysis, SOB with excertion, pleuritic pain, sputum, wheezing, other Cardiovascular: denies: chest pain, palpitations, orthopnea, paroxysmal noc. dyspnea, edema, light headedness, other - Medication Medications: Active Medications Generic Name Dose Route Start Last Admin Trade Name Freq PRN Reason Stop Dose Admin Acetaminophen 1,000 mg 10/08/20 20:11 10/15/20 19:54 Acetaminophen 500 Mg Tab PO 1,000 mg Q6H PRN Administration Mild Pain (1-3) Amiodarone HCl 400 mg 10/11/20 21:00 10/16/20 21:16 Amiodarone 200 Mg Tab PO 400 mg BID JEN Administration Apixaban 2.5 mg 10/12/20 21:00 10/16/20 21:16 Apixaban 2.5 Mg Tab PO 2.5 mg BID JEN Administration Aspirin 81 mg 10/09/20 09:00 10/16/20 08:21 Aspirin 81 Mg Enteric Coated Tablet PO 81 mg DAILY JEN Administration Atorvastatin Calcium 40 mg 10/08/20 21:00 10/16/20 21:16 Atorvastatin Calcium 40 Mg Tab PO 40 mg HS JEN Administration Brimonidine Tartrate 1 drop 10/08/20 21:00 10/16/20 21:17 Brimonidine Tartrate 0.2% Ophth Soln 5 Ml Bottle EA EYE 1 drop BID JEN Administration Cholecalciferol 1,000 units 10/08/20 21:00 10/16/20 21:16 Cholecalciferol 1,000 Units (25 Mcg) Tab PO 1,000 units HS JEN Administration Famotidine 20 mg 10/08/20 21:00 10/16/20 21:18 Famotidine 20 Mg Tab PO 20 mg 2100 JEN Administration Ferrous Sulfate 325 mg 10/08/20 21:00 10/16/20 21:16 Ferrous Sulfate 325 Mg Tab PO 325 mg HS JEN Administration Insulin Glargine 22 units/ 0.22 mls @ 0 mls/hr 10/15/20 21:00 10/16/20 21:18 Miscellaneous Medication SC 0.22 mls HS JEN Administration Insulin Human Lispro 0 units 10/08/20 20:11 10/16/20 21:24 Humalog 300 Units/3 Ml Vial SC 2 unit .BEDTIME SLIDING SC PRN Administration Bedtime Correctional Scale Insulin Human Lispro 0 units 10/14/20 12:25 10/16/20 17:24 Humalog 300 Units/3 Ml Vial SC 4 unit .MODERATE SLIDING SC PRN Administration Moderate Correctional Scale Latanoprost 1 drop 10/08/20 21:00 10/16/20 21:18 Latanoprost 0.005% Ophth Soln 2.5 Ml Bottle EA EYE 1 drop HS JEN Administration Levothyroxine Sodium 75 mcg 10/09/20 06:00 10/16/20 05:33 Levothyroxine Sodium 75 Mcg Tab PO 75 mcg 0600 JEN Administration Magnesium Oxide 400 mg 10/08/20 21:00 10/16/20 21:16 Magnesium Oxide 400 Mg Tab PO 400 mg HS JEN Administration Envarsus Xr 4 Mg 1 each 10/09/20 09:00 10/16/20 08:23 PO 1 each DAILY JEN Administration Envarsus Xr 1 Mg 3 each 10/09/20 09:00 10/16/20 08:23 PO 3 each DAILY JEN Administration Polyethylene Glycol 17 gm 10/16/20 09:00 10/16/20 08:21 Polyethylene Glycol 3350 17 Gm Packet PO 17 gm DAILY JEN Administration Prednisone 7.5 mg 10/13/20 09:00 10/16/20 08:21 Prednisone 5 Mg Tab PO 7.5 mg DAILY JEN Administration Timolol Maleate 1 drop 10/08/20 21:00 10/16/20 21:21 Timolol 0.5% Ophth Soln 5 Ml Bottle EA EYE 1 drop BID JEN Administration - Exam General Appearance: ill appearing Neck: supple Heart: RRR, no gallops Respiratory: no wheezes, no rales, rhonchi Gastrointestinal: soft, non-tender Extremities: no cyanosis, 1+ LE edema Neurological: no new deficit Hosp A/P - Plan Acute hypoxic respiratory failure requiring NIPPV Acute on chronic diastolic heart failure exacerbation DEANNE on CKD stage III with a history of renal transplant A. fib with RVRconverted to sinus rhythm S/p Amiodarone loading. Patient will require amiodarone 400 mg bid for 2 weeks then 200 mg bid for 2 weeks then 200 mg daily at discharge Diabetes mellitus type 2 Elevated troponin due to demand ischemia/type II [place] Morbid obesity with a BMI 40.4 Hypothyroidism Glaucoma Hyperlipidemia Plan: IV fluid discontinued. Patient received 1 dose of IV Lasix per nephrology due to shortness of breath. Blood sugars uncontrolled. Will add 10 units Lantus qam. Continue sliding scale. Continue amiodarone loading per cardiology with anticoagulation. Continue immunosuppressants. DC in a.m. if okay with nephrology
[2020-10-17 04:32] LABS: #Eosinphils 0.1 thou/uL (0.0-0.7); #Lymphocytes 1.4 thou/uL (1.20-3.40); #Monocytes 1.2 thou/uL (0.11-0.59); %Basophils 0.1 % (0.0-1.0); %Eosinophils 0.4 % (0.0-10.0); %Lymphocytes 11.3 % (21.0-51.0); %Monocytes 9.1 % (0.0-10.0); %Neutrophils 79.1 % (42.0-75.0); Hemoglobin 10.2 g/dL (12.0-16.0); Mean Corpuscular HGB CONC 30.5 g/dL (32.0-36.0); Mean Corpuscular Hemoglobin 29.4 pg (27.0-31.0); Mean Corpuscular Volume 96.3 fL (78.0-98.0); Mean Platelet Volume 9.7 fL (7.4-10.4); Platelet Count 179 thou/uL (130-400); RBC Distribution Width 12.5 % (11.5-14.5); Red Blood Cell (RBC) Count 3.47 mill/uL (4.20-5.40); White Blood Cell (WBC) Count 12.6 thou/uL (4.8-10.8)
[2020-10-17 04:58] LABS: Anion Gap 16 mmol/L (10-20); BUN (Urea Nitrogen) 34 mg/dL (9.8-20.1); Calc. Creatinine Clearance 53 mL/min (70-130); Calcium 9.6 mg/dL (7.8-10.44); Carbon Dioxide 21 mmol/L (23-31); Chloride 111 mmol/L (98-107); Glucose 175 mg/dL (80-115); Potassium 4.7 mmol/L (3.5-5.1); Sodium 143 mmol/L (136-145)
[2020-10-17] MEDS: HumaLOG 300 UNITS/3 ML VIAL SC PRN (06:07)
[2020-10-17] MEDS: Levothyroxine Sodium 75 MCG TAB PO SCH (06:08)
[2020-10-17] MEDS ORDERED: Furosemide 20 MG TAB PO SCH (08:30)
--- NOTE | 2020-10-17 08:49 | PRG ---
DATE OF SERVICE: 10/17/2020 SUBJECTIVE: Ms. Ham is a 65-year-old black female, who was admitted for CHF secondary to diastolic dysfunction. Cardiac echo showed a normal ejection fraction. We are following her up for her acute kidney injury on top of her cadaveric renal transplant. Her creatinine peaked at 2.1. She was given volume repletion; however, the patient is now complaining of being short of breath at night, especially when lying down. Her chest x-ray yesterday showed improved CHF. My plan is to at least give her Lasix 40 mg one tab today. Renal function is slowly improving. No chest pain. OBJECTIVE: VITAL SIGNS: Blood pressure 119/57, heart rate 49, respiratory rate 20, temperature 98.2, and O2 saturation 94%. GENERAL: The patient is awake, obese, comfortable, not in distress. SKIN: Adequate turgor. HEENT: Pinkish conjunctivae. Anicteric sclerae. NECK: No neck mass. No carotid bruits. No JVD. CHEST: No deformities. LUNGS: Decreased breath sounds. HEART: Bradycardic. No murmur. No gallops. No rubs. ABDOMEN: Globular, soft, nontender. No masses. EXTREMITIES: No trace edema. MEDICATIONS: Medications of October 17, 2020, were reviewed. LABORATORY DATA: Laboratories of October 17, 2020; white count 12.6, hemoglobin 10.2. Sodium 143, potassium 4.7, chloride 111, carbon dioxide 21, BUN 34, creatinine 1.75, glucose 175, calcium 9.6. Chest x-ray of October 16, 2020, showed cardiomegaly with improved pulmonary vascular congestion. ASSESSMENT AND PLAN: 1. Shortness of breath-usually occurs at night when lying down. Lasix 40 mg one tab will be started. We will give Lasix on a p.r.n. basis. Lasix 40 mg tablet x1 dose was ordered for today. 2. Acute kidney injury, slowly improving, superimposed hemodynamically mediated dysfunction. Continue supportive care. Judicious use of diuretics. 3. Status post cadaveric renal transplant. Awaiting further repeat tacrolimus level. Last tacrolimus level was 3.2. Attempting a therapeutic level between 6 and 8. 4. Borderline anemia, stable, slowly improving. We will recheck CBC, basic met in a.m. Job ID: [id number]
[2020-10-17] MEDS: Amiodarone 200 MG TAB PO SCH ×2 (09:25→21:12)
[2020-10-17] MEDS: predniSONE 5 MG TAB PO SCH (09:26)
[2020-10-17] MEDS: Aspirin 81 mg Enteric Coated Tablet PO SCH (09:26)
[2020-10-17] MEDS: Brimonidine Tartrate 0.2% Ophth Soln 5 ml Bottle EA EYE SCH ×2 (09:26→21:10)
[2020-10-17] MEDS: Apixaban 2.5 MG TAB PO SCH ×2 (09:26→21:12)
[2020-10-17] MEDS: Polyethylene Glycol 3350 17 GM Packet PO SCH (09:27)
[2020-10-17] MEDS: Timolol 0.5% Ophth Soln 5 ml Bottle EA EYE SCH ×2 (09:27→21:10)
[2020-10-17] MEDS: ENVARSUS 1 MG PO SCH (09:27)
[2020-10-17] MEDS: ENVARSUS 4 MG PO SCH (09:30)
[2020-10-17] MEDS: Insulin Glargine 10 UNITS in Pre-Filled Syringe 1 EACH SC SCH (10:19)
[2020-10-17 12:10] LABS: Tacrolimus 4.4 ng/mL (2.0-20.0)
--- NOTE | 2020-10-17 20:48 | PDOC.HOSPP ---
- Subjective Encounter Date: 10/17/20 Encounter Time: 15:30 Subjective: Patient seen and examined for CHF with acute kidney injury. Short of breath on [id number] exertion. Mild dry cough. No chest pain or palpitations reported. - Objective Vital Signs & Weight: Vital Signs (12 hours) Temp Pulse Pulse Pulse Resp BP BP 10/17/20 19:45 98.4 F 59 L 18 10/17/20 16:00 10/17/20 13:35 51 L 51 L 110/51 L 101/49 L 10/17/20 11:27 98.9 F 50 L 21 H 10/17/20 09:27 49 L BP BP Pulse Ox Pulse Ox Pulse Ox 10/17/20 19:45 104/59 L 94 L 10/17/20 16:00 114/63 10/17/20 13:35 96 96 10/17/20 11:27 99/55 L 100 10/17/20 09:27 Weight Admit Weight 232 lb 9.403 oz Weight 243 lb 6.4 oz Most Recent Monitor Data Heart Rate from ECG 99 NIBP 105/45 NIBP BP-Mean 67 Respiration from ECG 16 SpO2 100 I&O: 10/16/20 10/17/20 10/18/20 06:59 06:59 06:59 Intake Total 2290 940 960 Output Total 1 Balance 2290 939 960 Result Diagrams: 10/17/20 04:01 10/17/20 04:01 Additional Labs: Accuchecks 10/17/20 10/17/20 10/17/20 16:15 10:15 05:29 POC Glucose 305 H 162 H 155 H 10/16/20 10/16/20 20:55 10:38 POC Glucose 240 H 222 H Abnormal Lab Results - Last 48 hrs 10/16/20 03:54: RBC 3.34 L, Hgb 9.9 L, Hct 32.1 L, MCHC 30.8 L, Lymphocytes % 17.0 L, Neutrophils # 7.0 H, Monocytes # 0.8 H 10/16/20 03:54: Chloride 110 H, Carbon Dioxide 19 L, BUN 44 H, Creatinine 1.94 H 10/17/20 04:01: Chloride 111 H, Carbon Dioxide 21 L, BUN 34 H, Creatinine 1.75 H 10/17/20 04:01: WBC 12.6 H, RBC 3.47 L, Hgb 10.2 L, Hct 33.5 L, MCHC 30.5 L, Neutrophils % 79.1 H, Lymphocytes % 11.3 L, Neutrophils # 10.0 H, Monocytes # 1.2 H Microbiology - Entire Visit 10/08/20 17:00 Venous blood - Left Arm Blood Culture - Final NO GROWTH IN 5 DAYS 10/08/20 17:09 Venous blood - Left Arm Blood Culture - Final Coagulase Neg Staphylococcus Coagulase Neg Staphylococcus#2 Coagulase Neg Staphylococcus#3 EKG Reviewed by me: Yes (Sinus rhythm on telemetry) Hospitalist ROS - Review of Systems Cardiovascular: reports: orthopnea, edema. denies: chest pain, palpitations, paroxysmal noc. dyspnea, light headedness, other Gastrointestinal: denies: nausea, vomiting, abdominal pain, diarrhea, constipation, melena, hematochezia, other - Medication Medications: Active Medications Generic Name Dose Route Start Last Admin Trade Name Freq PRN Reason Stop Dose Admin Acetaminophen 1,000 mg 10/08/20 20:11 10/15/20 19:54 Acetaminophen 500 Mg Tab PO 1,000 mg Q6H PRN Administration Mild Pain (1-3) Amiodarone HCl 400 mg 10/11/20 21:00 10/17/20 09:25 Amiodarone 200 Mg Tab PO 400 mg BID JEN Administration Apixaban 2.5 mg 10/12/20 21:00 10/17/20 09:26 Apixaban 2.5 Mg Tab PO 2.5 mg BID JEN Administration Aspirin 81 mg 10/09/20 09:00 10/17/20 09:26 Aspirin 81 Mg Enteric Coated Tablet PO 81 mg DAILY JEN Administration Atorvastatin Calcium 40 mg 10/08/20 21:00 10/16/20 21:16 Atorvastatin Calcium 40 Mg Tab PO 40 mg HS JEN Administration Brimonidine Tartrate 1 drop 10/08/20 21:00 10/17/20 09:26 Brimonidine Tartrate 0.2% Ophth Soln 5 Ml Bottle EA EYE 1 drop BID JEN Administration Cholecalciferol 1,000 units 10/08/20 21:00 10/16/20 21:16 Cholecalciferol 1,000 Units (25 Mcg) Tab PO 1,000 units HS JEN Administration Famotidine 20 mg 10/08/20 21:00 10/16/20 21:18 Famotidine 20 Mg Tab PO 20 mg 2100 JEN Administration Ferrous Sulfate 325 mg 10/08/20 21:00 10/16/20 21:16 Ferrous Sulfate 325 Mg Tab PO 325 mg HS JEN Administration Insulin Glargine 22 units/ 0.22 mls @ 0 mls/hr 10/15/20 21:00 10/16/20 21:18 Miscellaneous Medication SC 0.22 mls HS JEN Administration Insulin Glargine 10 units/ 0.1 mls @ 0 mls/hr 10/17/20 09:00 10/17/20 10:19 Miscellaneous Medication SC 0.1 mls QAM JEN Administration Insulin Human Lispro 0 units 10/08/20 20:11 10/16/20 21:24 Humalog 300 Units/3 Ml Vial SC 2 unit .BEDTIME SLIDING SC PRN Administration Bedtime Correctional Scale Insulin Human Lispro 0 units 10/14/20 12:25 10/17/20 06:07 Humalog 300 Units/3 Ml Vial SC 2 unit .MODERATE SLIDING SC PRN Administration Moderate Correctional Scale Latanoprost 1 drop 10/08/20 21:00 10/16/20 21:18 Latanoprost 0.005% Ophth Soln 2.5 Ml Bottle EA EYE 1 drop HS JEN Administration Levothyroxine Sodium 75 mcg 10/09/20 06:00 10/17/20 06:08 Levothyroxine Sodium 75 Mcg Tab PO 75 mcg 0600 JEN Administration Magnesium Oxide 400 mg 10/08/20 21:00 10/16/20 21:16 Magnesium Oxide 400 Mg Tab PO 400 mg HS JEN Administration Envarsus Xr 4 Mg 1 each 10/09/20 09:00 10/17/20 09:30 PO 1 each DAILY JEN Administration Envarsus Xr 1 Mg 3 each 10/09/20 09:00 10/17/20 09:27 PO 3 each DAILY JEN Administration Polyethylene Glycol 17 gm 10/16/20 09:00 10/17/20 09:27 Polyethylene Glycol 3350 17 Gm Packet PO 17 gm DAILY JEN Administration Prednisone 7.5 mg 10/13/20 09:00 10/17/20 09:26 Prednisone 5 Mg Tab PO 7.5 mg DAILY JEN Administration Timolol Maleate 1 drop 10/08/20 21:00 10/17/20 09:27 Timolol 0.5% Ophth Soln 5 Ml Bottle EA EYE 1 drop BID JEN Administration - Exam General Appearance: NAD General - other findings: Sitting on a chair Heart: RRR, no gallops Respiratory: no wheezes, normal chest expansion, rhonchi Gastrointestinal: soft, non-tender, no guarding, no rigidity Extremities: no cyanosis, 1+ LE edema Neurological: no new deficit Hosp A/P - Plan DVT proph w/SCDs Acute hypoxic respiratory failure requiring NIPPV Acute on chronic diastolic heart failure exacerbation DEANNE on CKD stage III with a history of renal transplant A. fib with RVRconverted to sinus rhythm S/p Amiodarone loading. Patient will require amiodarone 400 mg bid for 2 weeks then 200 mg bid for 2 weeks then 200 mg daily at discharge Diabetes mellitus type 2 Elevated troponin due to demand ischemia/type II [place] Morbid obesity with a BMI 40.4 Hypothyroidism Glaucoma Hyperlipidemia Plan: Case discussed with nephrology Dr. Ribeiro. Patient continues to have shortness of breath. IV fluid discontinued yesterday. She received 1 dose of 40 mg p.o. Lasix this morning. Continue fluid restriction. Continue current dose of insulin with moderate sliding scale. Recheck BMP in a.m. Continue other medications as above. DC in a.m. if okay with nephrology. Evaluate for home oxygen
[2020-10-17] MEDS: Ferrous Sulfate 325 MG TAB PO SCH (21:10)
[2020-10-17] MEDS: Latanoprost 0.005% Ophth Soln 2.5 ml Bottle EA EYE SCH (21:10)
[2020-10-17] MEDS: Famotidine 20 MG TAB PO SCH (21:10)
[2020-10-17] MEDS: Magnesium Oxide 400 MG TAB PO SCH (21:10)
[2020-10-17] MEDS: Cholecalciferol 1,000 UNITS (25 MCG) TAB PO SCH (21:11)
[2020-10-17] MEDS: Atorvastatin Calcium 40 MG TAB PO SCH (21:11)
[2020-10-17] MEDS: Insulin Glargine 22 UNITS in Pre-Filled Syringe SC SCH (21:24)
[2020-10-18] MEDS: HumaLOG 300 UNITS/3 ML VIAL SC PRN ×4 (00:32→18:27)
[2020-10-18] MEDS: Levothyroxine Sodium 75 MCG TAB PO SCH (06:07)
[2020-10-18] MEDS ORDERED: ENVARSUS 4 MG PO SCH (06:45)
[2020-10-18 07:39] LABS: Anion Gap 14 mmol/L (10-20); BUN (Urea Nitrogen) 41 mg/dL (9.8-20.1); Calc. Creatinine Clearance 52 mL/min (70-130); Calcium 9.5 mg/dL (7.8-10.44); Carbon Dioxide 23 mmol/L (23-31); Chloride 111 mmol/L (98-107); Glucose 213 mg/dL (80-115); Potassium 4.3 mmol/L (3.5-5.1); Sodium 144 mmol/L (136-145)
--- NOTE | 2020-10-18 08:38 | PRG ---
DATE OF SERVICE: 10/18/2020 SUBJECTIVE: Ms. Hoang is a 65-year-old black female, who is status post cadaveric renal transplant, and initially admitted for diastolic CHF. Cardiac workup was essentially negative. Cardiac echo showed normal EF. During this hospitalization, she developed acute kidney injury from her CHF as well as diuretic regimen. Diuretics have been restarted yesterday due to complaints of shortness of breath. She was given one-time dose of Lasix 40 mg tablet once a day. My plan is to maintain her on 20 mg tablet daily. In addition, adjustment with her Envarsus XR-which is her anti-rejection medication will be done at 4 mg two tablets daily. No other complaints today. She tells me her breathing last night was a little better. OBJECTIVE: VITAL SIGNS: Blood pressure 110/51, heart rate 48, respiratory rate 18, temperature 97.5, O2 saturation 94% on room air. GENERAL: Awake, sitting comfortable, obese, not in distress. SKIN: Adequate turgor. HEENT: Slightly pale conjunctivae. Anicteric sclerae. NECK: No neck mass. No carotid bruits. No JVD. CHEST: No deformities. LUNGS: Clear breath sounds. HEART: Normal sinus rhythm. No murmurs, gallops, or rubs. ABDOMEN: Globular, soft, nontender. No masses. EXTREMITIES: No edema. No deformities. MEDICATIONS: Of October 18, 2020 was reviewed. LABORATORY DATA: Laboratories of October 17, 2020; white count 12.6, hemoglobin 10.2. October 18, 2020, sodium 144, potassium 4.3, chloride 111, carbon dioxide 23, BUN 41, creatinine 1.87, glucose 213, calcium 9.5. ASSESSMENT AND PLAN: 1. Acute kidney injury-superimposed hemodynamically-mediated dysfunction. Creatinine is slightly high at 1.87 from 1.75. This could be a reflection of the diuretics given to her. Due to complaints of still some degree of shortness of breath, we will at least maintain her on Lasix at 20 mg tablet daily. There is no indication for any dialytic intervention. 2. Status post cadaveric renal transplant. Tacrolimus level was noted at 4.0. Our target is between 6 and 8. We will increase an Envarsus XR 4 mg tablet to two tablets per day. 3. Congestive heart failure, clinically improved. Will maintain with lasix at 20 mg tab/day. 4. Atrial fibrillation, on amiodarone-Cardiology is following. Job ID: [id number] MTDD
[2020-10-18 08:43] LABS: #Eosinphils 0.1 thou/uL (0.0-0.7); #Lymphocytes 1.8 thou/uL (1.20-3.40); #Monocytes 0.9 thou/uL (0.11-0.59); #Neutrophils 7.1 thou/uL (1.40-6.50); %Basophils 0.2 % (0.0-1.0); %Eosinophils 0.7 % (0.0-10.0); %Lymphocytes 18.5 % (21.0-51.0); %Monocytes 9.3 % (0.0-10.0); %Neutrophils 71.3 % (42.0-75.0); Hemoglobin 10.2 g/dL (12.0-16.0); Mean Corpuscular HGB CONC 30.7 g/dL (32.0-36.0); Mean Corpuscular Volume 97.7 fL (78.0-98.0); Mean Platelet Volume 9.3 fL (7.4-10.4); Platelet Count 188 thou/uL (130-400); RBC Distribution Width 12.6 % (11.5-14.5); Red Blood Cell (RBC) Count 3.41 mill/uL (4.20-5.40); White Blood Cell (WBC) Count 9.9 thou/uL (4.8-10.8)
[2020-10-18] MEDS: predniSONE 5 MG TAB PO SCH (09:03)
[2020-10-18] MEDS: Brimonidine Tartrate 0.2% Ophth Soln 5 ml Bottle EA EYE SCH ×2 (09:04→22:18)
[2020-10-18] MEDS: Aspirin 81 mg Enteric Coated Tablet PO SCH (09:04)
[2020-10-18] MEDS: Amiodarone 200 MG TAB PO SCH ×2 (09:04→22:19)
[2020-10-18] MEDS: Apixaban 2.5 MG TAB PO SCH ×2 (09:04→22:19)
[2020-10-18] MEDS: Insulin Glargine 10 UNITS in Pre-Filled Syringe 1 EACH SC SCH (09:05)
[2020-10-18] MEDS: Polyethylene Glycol 3350 17 GM Packet PO SCH (09:05)
[2020-10-18] MEDS: Timolol 0.5% Ophth Soln 5 ml Bottle EA EYE SCH ×2 (09:06→22:17)
[2020-10-18] MEDS ORDERED: Furosemide 20 MG TAB PO SCH (10:30)
[2020-10-18 14:43] VITALS: BMI 42.7
[2020-10-18] MEDS: Insulin Glargine 22 UNITS in Pre-Filled Syringe SC SCH (22:16)
[2020-10-18] MEDS: Famotidine 20 MG TAB PO SCH (22:18)
[2020-10-18] MEDS: Latanoprost 0.005% Ophth Soln 2.5 ml Bottle EA EYE SCH (22:18)
[2020-10-18] MEDS: Ferrous Sulfate 325 MG TAB PO SCH (22:19)
[2020-10-18] MEDS: Cholecalciferol 1,000 UNITS (25 MCG) TAB PO SCH (22:19)
[2020-10-18] MEDS: Atorvastatin Calcium 40 MG TAB PO SCH (22:19)
[2020-10-18] MEDS: Magnesium Oxide 400 MG TAB PO SCH (22:19)
[2020-10-18] MEDS: Acetaminophen 500 MG TAB PO PRN (22:45)
--- NOTE | 2020-10-18 23:40 | PDOC.HOSPP ---
- Subjective Encounter Date: 10/18/20 Encounter Time: 11:00 Subjective: Patient seen and examined for congestive heart failure/Renal failure. Short of breath on [id number] exertion. Denies any chest pain, palpitations or nausea. - Objective Vital Signs & Weight: Vital Signs (12 hours) Temp Pulse Resp BP Pulse Ox 10/18/20 22:17 70 10/18/20 20:00 98.2 F 55 L 14 148/99 H 92 L 10/18/20 16:12 98.3 F 79 17 134/58 L 93 L 10/18/20 11:41 98.6 F 50 L 17 111/52 L 94 L 10/18/20 11:40 98.6 F 50 L 17 111/52 L 94 L Weight Admit Weight 232 lb 9.403 oz Weight 241 lb 3 oz Most Recent Monitor Data Heart Rate from ECG 99 NIBP 105/45 NIBP BP-Mean 67 Respiration from ECG 16 SpO2 100 I&O: 10/17/20 10/18/20 10/19/20 06:59 06:59 06:59 Intake Total 940 1080 597 Output Total 1 Balance 939 1080 597 Result Diagrams: 10/18/20 08:21 10/18/20 07:01 Additional Labs: Accuchecks 10/18/20 10/18/20 10/18/20 17:55 12:18 05:44 POC Glucose 257 H 189 H 239 H 10/18/20 00:07 POC Glucose 296 H EKG Reviewed by me: Yes (Sinus rhythm on telemetry) Hospitalist ROS - Review of Systems Respiratory: reports: cough, shortness of breath, SOB with excertion. denies: dry, hemoptysis, pleuritic pain, sputum, wheezing, other Cardiovascular: denies: chest pain, palpitations, orthopnea, paroxysmal noc. dyspnea, edema, light headedness, other - Medication Medications: Active Medications Generic Name Dose Route Start Last Admin Trade Name Freq PRN Reason Stop Dose Admin Acetaminophen 1,000 mg 10/08/20 20:11 10/18/20 22:45 Acetaminophen 500 Mg Tab PO 1,000 mg Q6H PRN Administration Mild Pain (1-3) Amiodarone HCl 400 mg 10/11/20 21:00 10/18/20 22:19 Amiodarone 200 Mg Tab PO 400 mg BID JEN Administration Apixaban 2.5 mg 10/12/20 21:00 10/18/20 22:19 Apixaban 2.5 Mg Tab PO 2.5 mg BID JEN Administration Aspirin 81 mg 10/09/20 09:00 10/18/20 09:04 Aspirin 81 Mg Enteric Coated Tablet PO 81 mg DAILY JEN Administration Atorvastatin Calcium 40 mg 10/08/20 21:00 10/18/20 22:19 Atorvastatin Calcium 40 Mg Tab PO 40 mg HS JEN Administration Brimonidine Tartrate 1 drop 10/08/20 21:00 10/18/20 22:18 Brimonidine Tartrate 0.2% Ophth Soln 5 Ml Bottle EA EYE 1 drop BID JEN Administration Cholecalciferol 1,000 units 10/08/20 21:00 10/18/20 22:19 Cholecalciferol 1,000 Units (25 Mcg) Tab PO 1,000 units HS JEN Administration Famotidine 20 mg 10/08/20 21:00 10/18/20 22:18 Famotidine 20 Mg Tab PO 20 mg 2100 JEN Administration Ferrous Sulfate 325 mg 10/08/20 21:00 10/18/20 22:19 Ferrous Sulfate 325 Mg Tab PO 325 mg HS JEN Administration Insulin Glargine 22 units/ 0.22 mls @ 0 mls/hr 10/15/20 21:00 10/18/20 22:16 Miscellaneous Medication SC 0.22 mls HS JEN Administration Insulin Glargine 10 units/ 0.1 mls @ 0 mls/hr 10/17/20 09:00 10/18/20 09:05 Miscellaneous Medication SC 0.1 mls QAM JEN Administration Insulin Human Lispro 0 units 10/08/20 20:11 10/18/20 00:32 Humalog 300 Units/3 Ml Vial SC 3 unit .BEDTIME SLIDING SC PRN Administration Bedtime Correctional Scale Insulin Human Lispro 0 units 10/14/20 12:25 10/18/20 18:27 Humalog 300 Units/3 Ml Vial SC 6 unit .MODERATE SLIDING SC PRN Administration Moderate Correctional Scale Latanoprost 1 drop 10/08/20 21:00 10/18/20 22:18 Latanoprost 0.005% Ophth Soln 2.5 Ml Bottle EA EYE 1 drop HS JEN Administration Levothyroxine Sodium 75 mcg 10/09/20 06:00 10/18/20 06:07 Levothyroxine Sodium 75 Mcg Tab PO 75 mcg 0600 JEN Administration Magnesium Oxide 400 mg 10/08/20 21:00 10/18/20 22:19 Magnesium Oxide 400 Mg Tab PO 400 mg HS JEN Administration Polyethylene Glycol 17 gm 10/16/20 09:00 10/18/20 09:05 Polyethylene Glycol 3350 17 Gm Packet PO 17 gm DAILY JEN Administration Prednisone 7.5 mg 10/13/20 09:00 10/18/20 09:03 Prednisone 5 Mg Tab PO 7.5 mg DAILY JEN Administration Timolol Maleate 1 drop 10/08/20 21:00 10/18/20 22:17 Timolol 0.5% Ophth Soln 5 Ml Bottle EA EYE 1 drop BID JEN Administration - Exam General Appearance: NAD (Addressed) Neck: supple, no JVD Heart: RRR, no gallops Respiratory: no wheezes, rhonchi Gastrointestinal: soft, non-distended, normal bowel sounds Extremities: 1+ LE edema Hosp A/P - Plan DVT proph w/SCDs Acute hypoxic respiratory failure requiring NIPPV Acute on chronic diastolic heart failure exacerbation DEANNE on CKD stage III with a history of renal transplant A. fib with RVRconverted to sinus rhythm S/p Amiodarone loading. Patient will require amiodarone 400 mg bid for 2 weeks then 200 mg bid for 2 weeks then 200 mg daily at discharge Diabetes mellitus type 2 Elevated troponin due to demand ischemia/type II [place] Morbid obesity with a BMI 40.4 Hypothyroidism Glaucoma Hyperlipidemia Plan: Patient started on Lasix 20 mg daily. Monitor renal function closely. Counseled on fluid restriction. Continue levothyroxine, immunosuppressants and other medications as above. Continue current dose of Lantus with sliding scale. DC in a.m. if okay with nephrology
[2020-10-19 04:57] LABS: #Eosinphils 0.1 thou/uL (0.0-0.7); #Lymphocytes 2.3 thou/uL (1.20-3.40); #Neutrophils 6.8 thou/uL (1.40-6.50); %Basophils 0.4 % (0.0-1.0); %Eosinophils 1.1 % (0.0-10.0); %Lymphocytes 22.1 % (21.0-51.0); %Monocytes 9.8 % (0.0-10.0); %Neutrophils 66.5 % (42.0-75.0); Mean Corpuscular Hemoglobin 30.1 pg (27.0-31.0); Mean Platelet Volume 9.3 fL (7.4-10.4); Platelet Count 187 thou/uL (130-400); RBC Distribution Width 12.6 % (11.5-14.5); Red Blood Cell (RBC) Count 2.99 mill/uL (4.20-5.40); White Blood Cell (WBC) Count 10.2 thou/uL (4.8-10.8)
[2020-10-19 05:29] LABS: Anion Gap 13 mmol/L (10-20); BUN (Urea Nitrogen) 45 mg/dL (9.8-20.1); Calc. Creatinine Clearance 46 mL/min (70-130); Calcium 9.3 mg/dL (7.8-10.44); Carbon Dioxide 24 mmol/L (23-31); Chloride 113 mmol/L (98-107); Glucose 119 mg/dL (80-115); Potassium 4.7 mmol/L (3.5-5.1); Sodium 145 mmol/L (136-145)
[2020-10-19] MEDS ORDERED: ENVARSUS 4 MG PO SCH (06:00)
[2020-10-19] MEDS: Levothyroxine Sodium 75 MCG TAB PO SCH (06:03)
[2020-10-19] MEDS: Apixaban 2.5 MG TAB PO SCH (08:39)
[2020-10-19] MEDS: Aspirin 81 mg Enteric Coated Tablet PO SCH (08:39)
[2020-10-19] MEDS: Insulin Glargine 10 UNITS in Pre-Filled Syringe 1 EACH SC SCH (08:40)
[2020-10-19] MEDS: Timolol 0.5% Ophth Soln 5 ml Bottle EA EYE SCH (08:40)
[2020-10-19] MEDS: predniSONE 5 MG TAB PO SCH (08:40)
[2020-10-19] MEDS: Brimonidine Tartrate 0.2% Ophth Soln 5 ml Bottle EA EYE SCH (08:40)
[2020-10-19] MEDS: Polyethylene Glycol 3350 17 GM Packet PO SCH (08:40)
--- NOTE | 2020-10-19 08:47 | PRG ---
DATE OF SERVICE: 10/19/2020 SUBJECTIVE: Ms. Hoang is a 65-year-old black female who was admitted for diastolic CHF. She was diuresed but renal function worsened and this was placed temporarily on hold. Renal function has stabilized, and her diuretic has been resumed at a lower dose of 20 mg tablet once a day. No complaints of chest pain. She feels that her shortness of breath is improved. She was also noted to be in atrial fibrillation and was started on amiodarone by Cardiology. OBJECTIVE: VITAL SIGNS: Blood pressure 114/58, heart rate 45, respiratory rate 16, temperature 97.8, O2 saturation is 96%. GENERAL: The patient is awake, alert, sitting comfortable, not in distress. SKIN: Adequate turgor. HEENT: Slightly pale conjunctivae. Anicteric sclerae. NECK: No neck mass. No carotid bruits. No JVD. CHEST: No deformities. LUNGS: Occasional wheezing. HEART: Bradycardic. No murmurs, no gallops, no rubs. ABDOMEN: Globular, soft, nontender. No masses. EXTREMITIES: No edema. No deformities. MEDICATIONS: Medications of October 19, 2020, reviewed. LABORATORY DATA: Laboratories from October 19, 2020, white count 10.2, hemoglobin 9, sodium 145, potassium 4.7, chloride 103, carbon dioxide 24, BUN 45, creatinine 2.09, GFR 29 mL/minute, calcium 9.3. ASSESSMENT AND PLAN: 1. Volume overload/congestive heart failure - the patient is still complaining of abdominal fullness and said she has leg edema. My plan is simply to continue the Lasix at 20 mg tablet once a day. I was initially planning to discontinue this, but the patient is complaining of abdominal and generalized feeling of swelling. We will continue to monitor renal function. 2. Status post cadaveric renal transplant, stable. I adjusted her immunosuppressive regimen. She is going to take Envarsus XR 4 mg two tabs daily. 3. Borderline anemia. We will continue to observe. From a renal point of view, this patient can be discharged, and we can follow her up at the outpatient clinic. Job ID: [id number]
[2020-10-19] MEDS ORDERED: Furosemide 20 MG TAB PO SCH ×2 (09:00)
[2020-10-19] MEDS ORDERED: Amiodarone 200 MG TAB PO SCH (09:00)
[2020-10-19 12:47] VITALS: BP 140/68; TEMP 98.7
--- NOTE | 2020-10-19 20:05 | PDOC.DS.DS ---
Provider - Provider Date of Admission: 10/08/20 18:00 Date of Discharge: 10/19/20 Admitting Provider: Tony Chong DO Consultations: Cardiology, Nephrology Primary Care Physician: Adela Pierce MD Course - Hospital Course Hospital Course: Patient is a 65-year-old -[place] female with diabetes mellitus type 2, CKD s/p renal transplant in 2018, coronary artery disease and obesity presented to the emergency room on 10/08 with shortness of breath along with generalized weakness. Her O2 saturation was 81% on room air with respiratory rate in 40s. Chest x-ray on admission showed pulmonary vascular congestion. Please refer to the history and physical for further details. The patient was admitted to the hospital with a diagnosis of acute hypoxic respiratory failure requiring noninvasive positive pressure ventilation. She was started on diuretics with good improvement in her symptoms. Echocardiogram showed ejection fraction of 50 to 55% with mild mitral regurgitation and mild tricuspid regurgitation. Patient was seen by multiple consultants including pulmonary, cardiology as well as nephrology. Please see the consultation notes for details. Patient developed atrial fibrillation with rapid ventricular response requiring Cardizem drip. She was later started on amiodarone after which she converted to sinus rhythm. She has been also started on anticoagulation. She understands the risks associated with anticoagulation. She also had elevated troponins up to 1.5 due to non-ST elevation [place] type II. Creatinine on admission was 1.89 that gradually worsened to 2.26. Patient was then started on gentle hydration per nephrology. She has been restarted on oral Lasix at the time of discharge. Patient was extensively counseled on congestive heart failure and importance of fluid restriction. Recheck labs in 1 to 2 weeks is recommended. Final diagnosis: Acute hypoxic respiratory failure requiring NIPPV Acute on chronic diastolic heart failure exacerbation DEANNE on CKD stage III with a history of renal transplant A. fib with RVRconverted to sinus rhythm S/p Amiodarone loading. Diabetes mellitus type 2 Elevated troponin due to demand ischemia/type II [place] Morbid obesity with a BMI 40.4 Hypothyroidism Glaucoma Hyperlipidemia Resuscitation Status: 10/08/20 18:19 Resuscitation Status Routine Resuscitation Status: FULL: Full Resuscitation - Labs Lab Results: 10/19/20 04:19 10/19/20 04:19 Abnormal Lab Results - Last 48 hrs 10/18/20 07:01: Chloride 111 H, BUN 41 H, Creatinine 1.87 H 10/18/20 08:21: RBC 3.41 L, Hgb 10.2 L, Hct 33.3 L, MCHC 30.7 L, Lymphocytes % 18.5 L, Neutrophils # 7.1 H, Monocytes # 0.9 H 10/19/20 04:19: Chloride 113 H, BUN 45 H, Creatinine 2.09 H 10/19/20 04:19: RBC 2.99 L, Hgb 9.0 L, Hct 28.9 L, MCHC 31.0 L, Neutrophils # 6.8 H, Monocytes # 1.0 H Microbiology - Entire Visit 10/08/20 17:00 Venous blood - Left Arm Blood Culture - Final NO GROWTH IN 5 DAYS 10/08/20 17:09 Venous blood - Left Arm Blood Culture - Final Coagulase Neg Staphylococcus Coagulase Neg Staphylococcus#2 Coagulase Neg Staphylococcus#3 - Physical Exam Vitals: Vital Signs (12 hours) Temp Pulse Pulse Pulse Resp BP BP 10/19/20 11:20 98.7 F 50 L 16 10/19/20 08:50 47 L 47 L 90/65 121/58 L BP Pulse Ox Pulse Ox Pulse Ox 10/19/20 11:20 140/68 96 10/19/20 08:50 95 98 Weight Admit Weight 232 lb 9.403 oz Weight 242 lb 14.4 oz Most Recent Monitor Data Heart Rate from ECG 99 NIBP 105/45 NIBP BP-Mean 67 Respiration from ECG 16 SpO2 100 Physical Exam: The patient was seen and examined on the day of discharge. Plan - Discharge Medications Prescriptions: Amiodarone [Cordarone] 200 mg PO ASDIR #100 tab Apixaban [Eliquis] 2.5 mg PO BID #60 tab Furosemide [Lasix] 20 mg PO DAILY #30 tab Home Medications: Medication Instructions Recorded Confirmed Type Aspirin [Aspirin EC] 81 mg PO HS 10/31/13 10/08/20 History Levothyroxine Sodium [Synthroid] 75 mcg PO DAILY 10/31/13 10/08/20 History Atorvastatin Calcium 80 mg PO HS 08/25/14 10/08/20 History Cholecalciferol (Vitamin D3) 2,000 unit PO HS 08/25/14 10/08/20 History [Vitamin D3] Insulin NPH Hum/Reg Insulin HM 3 unit SC AC 08/15/15 10/08/20 History [Novolin 70/30] Polyethylene Glycol 3350 [Miralax] 17 gm PO DAILY 04/17/16 10/08/20 History Famotidine [Pepcid] 20 mg PO BID 06/10/18 10/08/20 History Ferrous Sulfate [Feosol] 325 mg PO HS 06/10/18 10/08/20 History Insulin Glargine [Lantus Vial] 16 units SC HS 06/10/18 10/08/20 History Magnesium Oxide 400 mg PO HS 06/10/18 10/08/20 History Multivitamin [Multivitamins] 1 cap PO DAILY 06/10/18 10/08/20 History predniSONE [Prednisone] 7.5 mg PO DAILY 06/10/18 10/08/20 History Tacrolimus [Envarsus Xr] 7 mg PO DAILY 10/08/20 10/08/20 History Amiodarone [Cordarone] 200 mg PO ASDIR #100 tab 10/19/20 Rx Apixaban [Eliquis] 2.5 mg PO BID #60 tab 10/19/20 Rx Furosemide [Lasix] 20 mg PO DAILY #30 tab 10/19/20 Rx Allergies: No Known Drug Allergies Allergy (Verified 01/18/20 03:51) - Discharge Instructions Discharge Instructions:: BMP after 1 week - PCP to arrange/follow Nourishment:: Fluid Restriction Diet (2 lit/day) - Follow up Plan Referrals: Cardiac Rehab -[place] [Outside] - 7 Days (Your doctor has ordered outpatient cardiac rehab for you to begin within 1-2 weeks after you go home fr om the hospital. The location nearest to you is the [facility]. The front office in [place] will call you in 3-5 days to get you scheduled for your evaluation. If you do not receive a call, please reach out to them at [phone] and request an appointment. Should you have any trouble or need assistance, please call the cardiac rehab main line in [place] at [phone]) Adela Pierce MD [Primary Care Provider] - 7 Days (CALL OFFICE TO SCHEDULE APPOINTMENT) Guillermo Luna MD [Active] - 3-4 Weeks (CALL OFFICE TO SCHEDULE APPOINTMENT) Jamarcus Ribeiro MD [Active] - 2-3 Weeks (CALL OFFICE TO SCHEDULE APPOINTMENT) Disposition: HOME Quality - Care Measures CORE MEASURES:: N/A
== END 2020-10-19 11:30 | disposition home or self-care (01) | DRG 280 ==
LOC: ERS 16:28 → CCU 18:00 → 2NO 10-10 12:45
PROVIDERS: ADMIT Family Medicine; ATTEND Internal Medicine
PROC: 5A09357 Assistance with Respiratory Ventilation, Less than 24 Consecutive Hours, Continuous Positive Airway Pressure (ICD-10-PCS; principal; 2020-10-08)
DX: I13.0 Hypertensive heart and chronic kidney disease with heart failure and stage 1 through stage 4 chronic kidney disease, or unspecified chronic kidney disease (principal); J96.01 Acute respiratory failure with hypoxia; I21.A1 Myocardial infarction type 2; J96.02 Acute respiratory failure with hypercapnia; I50.33 Acute on chronic diastolic (congestive) heart failure; T86.19 Other complication of kidney transplant; N17.9 Acute kidney failure, unspecified; Z68.41 Body mass index [BMI] 40.0-44.9, adult; Z20.828 Contact with and (suspected) exposure to other viral communicable diseases; E11.22 Type 2 diabetes mellitus with diabetic chronic kidney disease; E03.9 Hypothyroidism, unspecified; N18.30 Chronic kidney disease, stage 3 unspecified; E66.01 Morbid (severe) obesity due to excess calories; H40.9 Unspecified glaucoma; I25.10 Atherosclerotic heart disease of native coronary artery without angina pectoris; E78.00 Pure hypercholesterolemia, unspecified; I48.91 Unspecified atrial fibrillation; Y83.0 Surgical operation with transplant of whole organ as the cause of abnormal reaction of the patient, or of later complication, without mention of misadventure at the time of the procedure; Z95.5 Presence of coronary angioplasty implant and graft; Z90.710 Acquired absence of both cervix and uterus; Z79.4 Long term (current) use of insulin; Z79.899 Other long term (current) drug therapy; Z79.82 Long term (current) use of aspirin
CPT/HCPCS: 0240U; 36415; 36416; 36600; 71045; 71046; 80048; 80053; 80061; 80197; 82805; 83605; 83735; 83880; 84443; 84484; 85014; 85018; 85025; 85049; 85610; 85730; 87040; 87149; 93005; 93010; 93306; 93798; 94660; 94760; 96374; 96375; 97139; J0282; J0696; J1650; J1815; J1940; J2405; J2550; J3490; J7070; J7512

== ENCOUNTER 2021-03-01 12:49 | Day surgery (SDC) | payer MEDICARE ==
[2021-03-01 14:29] VITALS: BMI 40.8
[2021-03-01 16:11] LABS: #Monocytes 0.5 thou/uL (0.11-0.59); #Neutrophils 6.4 thou/uL (1.40-6.50); %Basophils 0.4 % (0.0-1.0); %Eosinophils 0.1 % (0.0-10.0); %Lymphocytes 12.1 % (21.0-51.0); %Monocytes 6.5 % (0.0-10.0); %Neutrophils 80.8 % (42.0-75.0); Hemoglobin 10.7 g/dL (12.0-16.0); Mean Corpuscular HGB CONC 30.3 g/dL (32.0-36.0); Mean Corpuscular Hemoglobin 28.4 pg (27.0-31.0); Mean Platelet Volume 10.1 fL (7.4-10.4); Platelet Count 138 thou/uL (130-400); RBC Distribution Width 14.3 % (11.5-14.5); Red Blood Cell (RBC) Count 3.75 mill/uL (4.20-5.40); White Blood Cell (WBC) Count 7.9 thou/uL (4.8-10.8)
[2021-03-01 16:30] LABS: ALT (SGPT) 33 U/L (8-55); AST (SGOT) 26 U/L (5-34); Albumin 3.6 g/dL (3.4-4.8); Alkaline Phosphatase 170 U/L (40-110); Anion Gap 15 mmol/L (10-20); BUN (Urea Nitrogen) 44 mg/dL (9.8-20.1); Bilirubin, Total 0.5 mg/dL (0.2-1.2); Calc. Creatinine Clearance 32 mL/min (70-130); Calcium 9.7 mg/dL (7.8-10.44); Carbon Dioxide 20 mmol/L (23-31); Chloride 113 mmol/L (98-107); Globulin 2.5 g/dL (2.4-3.5); Glucose 194 mg/dL (80-115); Potassium 4.6 mmol/L (3.5-5.1); Protein, Total 6.1 g/dL (5.8-8.1); Sodium 143 mmol/L (136-145)
[2021-03-01] MEDS: Sodium Chloride 0.9% 1,000 ML IV SCH (16:30)
[2021-03-01] MEDS: hydrALAZINE 25 MG TAB PO SCH (18:33)
[2021-03-01] MEDS ORDERED: Dextrose 5% in Water 1,000 ML IV PRN (19:00)
[2021-03-01] MEDS ORDERED: Dextrose 50% Abboject 50 ML SYRINGE IVP PRN (19:00)
[2021-03-01] MEDS ORDERED: Insulin Regular 300 UNITS/3 ML VIAL SC PRN (19:00)
[2021-03-01] MEDS ORDERED: Lantus 1000 UNITS/10 ML VIAL SC SCH (21:00)
[2021-03-01] MEDS ORDERED: Atorvastatin Calcium 40 MG TAB PO SCH (21:00)
[2021-03-01] MEDS: Famotidine 20 MG TAB PO SCH (22:41)
[2021-03-02 01:54] LABS: SARS-CoV-2 PCR by NAA Not Detected (NotDetected)
[2021-03-02] MEDS: Famotidine 20 MG TAB PO SCH (04:53)
[2021-03-02] MEDS: hydrALAZINE 25 MG TAB PO SCH ×2 (04:53→17:18)
[2021-03-02] MEDS: Sodium Chloride 0.9% 1,000 ML IV SCH (04:54)
[2021-03-02 05:58] LABS: Cardiac Risk 2.2 (Less than 4.5)
[2021-03-02] MEDS ORDERED: Sodium Chloride 0.9% 1,000 ML IV SCH ×3 (06:00→16:15)
[2021-03-02] MEDS ORDERED: Levothyroxine Sodium 75 MCG TAB PO SCH (06:00)
[2021-03-02] MEDS ORDERED: Lidocaine 1% (PF) 30 ML VIAL ONE (07:40)
[2021-03-02] MEDS ORDERED: Heparin 10,000 UNITS/ 10 ML VIAL ONE (07:40)
[2021-03-02] MEDS ORDERED: Ferrous Sulfate 325 MG TAB PO SCH (08:00)
[2021-03-02 08:48] LABS: Anion Gap 15 mmol/L (10-20); BUN (Urea Nitrogen) 41 mg/dL (9.8-20.1); Calc. Creatinine Clearance 34 mL/min (70-130); Calcium 10.2 mg/dL (7.8-10.44); Carbon Dioxide 20 mmol/L (23-31); Chloride 114 mmol/L (98-107); Glucose 110 mg/dL (80-115); Potassium 4.5 mmol/L (3.5-5.1); Sodium 144 mmol/L (136-145)
[2021-03-02] MEDS ORDERED: Polyethylene Glycol 3350 17 GM Packet PO SCH (09:00)
[2021-03-02] MEDS ORDERED: Cholecalciferol 1,000 UNITS (25 MCG) TAB PO SCH (09:00)
[2021-03-02] MEDS ORDERED: Aspirin Chewable 81 MG TAB PO SCH (09:00)
[2021-03-02] MEDS ORDERED: Amiodarone 200 MG TAB PO SCH (09:00)
[2021-03-02] MEDS ORDERED: predniSONE 5 MG TAB PO SCH (09:00)
[2021-03-02] MEDS ORDERED: ENVARSUS XR PO SCH (09:00)
[2021-03-02] MEDS ORDERED: Magnesium Oxide 400 MG TAB PO SCH (09:00)
[2021-03-02] MEDS ORDERED: Midazolam HCl 2 mg/2 ml Vial ONE (09:27)
[2021-03-02] MEDS ORDERED: Fentanyl 100 MCG/2 ML VIAL ONE (09:27)
[2021-03-02] MEDS ORDERED: Protamine Sulfate 50 MG/5 ML VIAL ONE (09:48)
[2021-03-02] MEDS ORDERED: Acetaminophen/Codeine 30-300mg Tablet PO PRN ×2 (10:04)
[2021-03-02] MEDS ORDERED: Sodium Chloride 0.9% 200 ML IV PRN (10:04)
[2021-03-02] MEDS ORDERED: Nitroglycerin 0.4 MG TAB (25 Tab Bottle) SL PRN (10:04)
[2021-03-02] MEDS ORDERED: Iopamidol 370 76% 100 ML VIAL ONE (11:10)
[2021-03-02] MEDS: Furosemide 20 MG TAB PO SCH ×2 (12:03→13:52)
[2021-03-02] MEDS ORDERED: ENVARSUS 1 MG PO SCH (13:30)
[2021-03-02] MEDS ORDERED: ENVARSUS 4 MG PO SCH (13:30)
[2021-03-02] MEDS ORDERED: ENVARSUS 0.75 MG PO SCH (13:30)
[2021-03-02 17:19] VITALS: BP 177/72
[2021-03-02 18:44] VITALS: TEMP 98.7
[2021-03-03] MEDS ORDERED: ENVARSUS 4 MG PO SCH (09:00)
[2021-03-03] MEDS ORDERED: Famotidine 20 MG TAB PO SCH (09:00)
[2021-03-03] MEDS ORDERED: ENVARSUS 0.75 MG PO SCH (09:00)
[2021-03-03] MEDS ORDERED: ENVARSUS 1 MG PO SCH (09:00)
== END 2021-03-01 18:44 | disposition home or self-care (01) ==
LOC: SJX 12:49 → ERS 12:49 → 2NO 12:49 → ERS 13:00 → 2NO 13:00 → UNDOADMIN 13:13 → ERS 14:41 → SJX 18:44 → UNDODISIN 03-02 18:44
PROVIDERS: ATTEND Internal Medicine Cardiovascular Disease
PROC: B2111ZZ Fluoroscopy of Multiple Coronary Arteries using Low Osmolar Contrast (ICD-10-PCS; principal; 2021-03-01)
DX: I25.10 Atherosclerotic heart disease of native coronary artery without angina pectoris (principal); I25.82 Chronic total occlusion of coronary artery; I21.A1 Myocardial infarction type 2; I48.0 Paroxysmal atrial fibrillation; I13.0 Hypertensive heart and chronic kidney disease with heart failure and stage 1 through stage 4 chronic kidney disease, or unspecified chronic kidney disease; E11.22 Type 2 diabetes mellitus with diabetic chronic kidney disease; N18.9 Chronic kidney disease, unspecified; I50.33 Acute on chronic diastolic (congestive) heart failure; E78.00 Pure hypercholesterolemia, unspecified; E03.9 Hypothyroidism, unspecified; E78.5 Hyperlipidemia, unspecified; E66.01 Morbid (severe) obesity due to excess calories; Z68.41 Body mass index [BMI] 40.0-44.9, adult; Z79.01 Long term (current) use of anticoagulants; Z79.82 Long term (current) use of aspirin; Z79.4 Long term (current) use of insulin; Z79.899 Other long term (current) drug therapy; Z94.0 Kidney transplant status; Z95.5 Presence of coronary angioplasty implant and graft; Z20.822 Contact with and (suspected) exposure to COVID-19
CPT/HCPCS: 71045; 82962; 93005; 99281; U0003; U0005; 36415; 36416; 76942; 80048; 80053; 80061; 84443; 85025; 85347; 87635; 93010; 93454; 99152; J1644; J1815; J2001; J2250; J2720; J3010; J7512; Q9967

== ENCOUNTER 2021-07-17 10:28 | Outpatient (CLI) | payer MEDICARE, OTHER ==
[2021-07-17 23:09] LABS: SARS-CoV-2 PCR by NAA Not Detected (NotDetected)
== END 2021-07-17 10:29 | disposition home or self-care (01) ==
LOC: LABBT 10:28
PROVIDERS: ATTEND Ophthalmology Retina Specialist
DX: Z01.812 Encounter for preprocedural laboratory examination (principal); H40.9 Unspecified glaucoma; H43.12 Vitreous hemorrhage, left eye; Z20.822 Contact with and (suspected) exposure to COVID-19
CPT/HCPCS: U0003; U0005

== ENCOUNTER 2021-07-19 07:29 | Day surgery (SDC) | payer MEDICARE, OTHER ==
[2021-07-17 15:07] VITALS: BMI 33.6
[2021-07-19] MEDS ORDERED: Fentanyl 100 MCG/2 ML VIAL ONE (08:01)
[2021-07-19] MEDS ORDERED: Midazolam HCl 2 mg/2 ml Vial ONE (08:01)
[2021-07-19] MEDS ORDERED: Phenylephrine 2.5% Ophth Soln 5 ML BOT ONE (08:25)
[2021-07-19] MEDS ORDERED: Cyclopentolate 1% Opth Drop 2 ML BOT ONE (08:25)
[2021-07-19] MEDS ORDERED: EPINEPHrine 0.3 MG in Ophthalmic Irrigation Solution 500 ML IRR SCH (09:00)
[2021-07-19] MEDS ORDERED: Metoclopramide HCl 10 MG/2 ML VIAL ONE (09:15)
[2021-07-19] MEDS ORDERED: PHENYLEPHRINE-NS 100 MCG/ML 10 ML SYRINGE ONE (09:15)
[2021-07-19] MEDS ORDERED: Triamcinolone 40 MG/ML VIAL ONE (09:15)
[2021-07-19] MEDS ORDERED: Ondansetron PF 4 MG/2 ML Vial ONE ×3 (09:15→09:56)
[2021-07-19] MEDS ORDERED: Lidocaine 4% PF 5 ML AMP ONE (09:15)
[2021-07-19] MEDS ORDERED: Bupivacaine PF 0.75% SDV 10 ML ONE (09:15)
[2021-07-19] MEDS ORDERED: Maxitrol 0.1% Opth Oint 3.5 GM TUBE ONE (09:15)
[2021-07-19] MEDS ORDERED: CEFAZOLIN 1 GM VIAL ONE (09:15)
[2021-07-19] MEDS ORDERED: Naloxone HCl 0.4 mg/ml Vial ONE (09:15)
[2021-07-19] MEDS ORDERED: Lidocaine 1% PF 5 ML VIAL ONE (09:15)
[2021-07-19] MEDS ORDERED: Famotidine/PF 20 mg/2ml Vial ONE (09:56)
[2021-07-19] MEDS ORDERED: Promethazine HCl 25 MG/ML VIAL ONE (10:49)
== END 2021-07-19 12:25 | disposition home or self-care (01) ==
LOC: SDC 07:29
PROVIDERS: ATTEND Ophthalmology Retina Specialist
PROC: 08T53ZZ Resection of Left Vitreous, Percutaneous Approach (ICD-10-PCS; principal; 2021-07-19)
PROC: 08QF3ZZ Repair Left Retina, Percutaneous Approach (ICD-10-PCS; 2021-07-19)
PROC: 08133J4 Bypass Left Anterior Chamber to Sclera with Synthetic Substitute, Percutaneous Approach (ICD-10-PCS; 2021-07-19)
DX: H40.9 Unspecified glaucoma (principal); H43.12 Vitreous hemorrhage, left eye; I48.91 Unspecified atrial fibrillation; I25.10 Atherosclerotic heart disease of native coronary artery without angina pectoris; E78.5 Hyperlipidemia, unspecified; E03.9 Hypothyroidism, unspecified; K21.9 Gastro-esophageal reflux disease without esophagitis; I12.9 Hypertensive chronic kidney disease with stage 1 through stage 4 chronic kidney disease, or unspecified chronic kidney disease; E10.22 Type 1 diabetes mellitus with diabetic chronic kidney disease; N18.9 Chronic kidney disease, unspecified; M19.90 Unspecified osteoarthritis, unspecified site; Z79.01 Long term (current) use of anticoagulants; Z79.82 Long term (current) use of aspirin; Z79.899 Other long term (current) drug therapy; Z95.0 Presence of cardiac pacemaker; Z99.2 Dependence on renal dialysis; Z94.0 Kidney transplant status
CPT/HCPCS: 36416; J0171; J0690; J2250; J2310; J2405; J2550; J2765; J3010; J3301; J3490; S0028

== ENCOUNTER 2021-09-11 14:32 | Inpatient (IN) | payer MEDICARE, OTHER ==
[2021-09-11 16:27] LABS: #Eosinphils 0.1 thou/uL (0.0-0.7); #Lymphocytes 1.1 thou/uL (1.20-3.40); #Monocytes 0.9 thou/uL (0.11-0.59); #Neutrophils 10.1 thou/uL (1.40-6.50); %Basophils 0.3 % (0.0-1.0); %Eosinophils 0.5 % (0.0-10.0); %Lymphocytes 9.3 % (21.0-51.0); %Monocytes 7.3 % (0.0-10.0); %Neutrophils 82.7 % (42.0-75.0); Hemoglobin 9.2 g/dL (12.0-16.0); Mean Corpuscular HGB CONC 31.6 g/dL (32.0-36.0); Mean Corpuscular Hemoglobin 29.7 pg (27.0-31.0); Platelet Count 295 thou/uL (130-400); RBC Distribution Width 15.8 % (11.5-14.5); Red Blood Cell (RBC) Count 3.09 mill/uL (4.20-5.40); White Blood Cell (WBC) Count 12.2 thou/uL (4.8-10.8)
[2021-09-11 16:49] LABS: ALT (SGPT) 7 U/L (8-55); AST (SGOT) 17 U/L (5-34); Albumin 2.9 g/dL (3.4-4.8); Alkaline Phosphatase 211 U/L (40-110); Anion Gap 21 mmol/L (10-20); BUN (Urea Nitrogen) 88 mg/dL (9.8-20.1); Bilirubin, Total 0.5 mg/dL (0.2-1.2); Calc. Creatinine Clearance 0 mL/min (70-130); Calcium 9.1 mg/dL (7.8-10.44); Carbon Dioxide 23 mmol/L (23-31); Chloride 98 mmol/L (98-107); Globulin 3.5 g/dL (2.4-3.5); Glucose 240 mg/dL (80-115); Potassium 5.4 mmol/L (3.5-5.1); Protein, Total 6.4 g/dL (5.8-8.1); Sodium 137 mmol/L (136-145)
[2021-09-11 17:26] LABS: CKMB 1.8 ng/mL (0-6.6)
[2021-09-11 17:36] LABS: Bilirubin Negative (Negative); Blood, Urine Negative (Negative); Clarity Clear (Clear); Glucose, Urine (Dipstick) 30 mg/dL (Negative); Ketone, Urine Negative (Negative); Leukocyte 250 Leu/uL (Negative); Nitrite Negative (Negative); Protein, Urine (Dipstick) 50 mg/dL (Neg-Trace); Specific Gravity, Urine 1.018 (1.002-1.036); Urobilinogen Normal mg/dL (Less than 2); pH, Urine 5.5 (5.0-9.0)
[2021-09-11 17:38] LABS: Bacteria/HPF 1+ HPF (None Seen)
[2021-09-11] MEDS ORDERED: traMADol HCl 50 MG TAB ONE (21:22)
[2021-09-11 21:30] LABS: Troponin I 0.066 ng/mL (< 0.028)
[2021-09-11] MEDS ORDERED: Sodium Bicarb 50 MEQ/50 ML Abboject 8.4% SYRINGE ONE (21:55)
[2021-09-11] MEDS ORDERED: Electrolyte Replacement Protocol 1 EACH FS SCH (22:30)
[2021-09-11] MEDS ORDERED: Dextrose 5% in Water 1,000 ML IV PRN (22:32)
[2021-09-11] MEDS ORDERED: Dextrose 50% Abboject 50 ML SYRINGE SLOW IVP PRN (22:32)
[2021-09-11] MEDS ORDERED: Apixaban 2.5 MG TAB PO SCH (22:45)
[2021-09-11] MEDS ORDERED: cefTRIAXone\\ROCEPHIN 1 GM VIAL ONE (23:05)
[2021-09-11] MEDS: cefTRIAXone\\ROCEPHIN 1 GM in Sodium Chloride 0.9% 100 ML IVPB SCH (23:16)
[2021-09-11] MEDS: Atorvastatin Calcium 40 MG TAB PO SCH (23:16)
[2021-09-11 23:35] LABS: SARS-CoV-2 NAA Rapid Test Not Detected (NotDetected)
[2021-09-12 00:14] LABS: Troponin I 0.071 ng/mL (< 0.028)
[2021-09-12 00:28] LABS: Magnesium 2.6 mg/dL (1.6-2.6)
[2021-09-12 05:24] LABS: #Eosinphils 0.1 thou/uL (0.0-0.7); #Lymphocytes 1.6 thou/uL (1.20-3.40); #Monocytes 1.1 thou/uL (0.11-0.59); %Basophils 0.3 % (0.0-1.0); %Eosinophils 0.8 % (0.0-10.0); %Lymphocytes 14.9 % (21.0-51.0); %Monocytes 10.4 % (0.0-10.0); %Neutrophils 73.6 % (42.0-75.0); Hemoglobin 9.4 g/dL (12.0-16.0); Mean Corpuscular HGB CONC 31.9 g/dL (32.0-36.0); Mean Corpuscular Hemoglobin 29.8 pg (27.0-31.0); Mean Corpuscular Volume 93.6 fL (78.0-98.0); Mean Platelet Volume 8.1 fL (7.4-10.4); Platelet Count 265 thou/uL (130-400); RBC Distribution Width 15.5 % (11.5-14.5); Red Blood Cell (RBC) Count 3.15 mill/uL (4.20-5.40); White Blood Cell (WBC) Count 10.8 thou/uL (4.8-10.8)
[2021-09-12 05:36] LABS: Hemoglobin A1c 6.4 % (4.0-6.0)
[2021-09-12 05:37] LABS: Anion Gap 20 mmol/L (10-20); BUN (Urea Nitrogen) 84 mg/dL (9.8-20.1); Calc. Creatinine Clearance 10 mL/min (70-130); Calcium 9.4 mg/dL (7.8-10.44); Carbon Dioxide 26 mmol/L (23-31); Chloride 98 mmol/L (98-107); Glucose 167 mg/dL (80-115); Phosphorus 5.3 mg/dL (2.3-4.7); Potassium 5.2 mmol/L (3.5-5.1); Sodium 139 mmol/L (136-145)
[2021-09-12] MEDS ORDERED: Epoetin (ESRD) 20,000 UNITS/ML SC SCH (08:45)
[2021-09-12] MEDS ORDERED: Apixaban 2.5 MG TAB PO SCH (09:00)
[2021-09-12] MEDS ORDERED: Morphine 4 MG/ML VIAL ONE (10:02)
[2021-09-12] MEDS: Morphine 4 MG/ML VIAL SLOW IVP PRN (10:04)
[2021-09-12] MEDS: EPOETIN ALFA-EPBX (ESRD) 4,000 UNIT/ML VIAL SC SCH (10:34)
[2021-09-12] MEDS ORDERED: Ondansetron PF 4 MG/2 ML Vial ONE (11:26)
[2021-09-12] MEDS: Ondansetron ODT 4 MG TAB PO PRN (11:43)
[2021-09-12] MEDS ORDERED: Iopamidol-370 76% 500 ML 1 ML ONE (12:09)
[2021-09-12 15:07] LABS: Hep B Surf Ag Non-Reactive S/CO (NonReactive)
[2021-09-12] MEDS ORDERED: FLU VACC QS2021-22(65YR UP)/PF 240 MCG/0.7 ML SYRINGE IM ONE (15:45)
[2021-09-12] MEDS ORDERED: Famotidine 20 MG TAB PO SCH (21:15)
[2021-09-12] MEDS: cefTRIAXone\\ROCEPHIN 1 GM in Sodium Chloride 0.9% 100 ML IVPB SCH (21:59)
[2021-09-12] MEDS: Atorvastatin Calcium 40 MG TAB PO SCH (22:01)
[2021-09-12] MEDS ORDERED: traMADol HCl 50 MG TAB PO SCH (22:30)
[2021-09-13 04:57] LABS: Anion Gap 16 mmol/L (10-20); BUN (Urea Nitrogen) 27 mg/dL (9.8-20.1); Calc. Creatinine Clearance 21 mL/min (70-130); Calcium 8.8 mg/dL (7.8-10.44); Carbon Dioxide 25 mmol/L (23-31); Chloride 101 mmol/L (98-107); Glucose 114 mg/dL (80-115); Potassium 4.4 mmol/L (3.5-5.1); Sodium 138 mmol/L (136-145)
[2021-09-13 07:51] LABS: #Basophils 0.1 thou/uL (0.0-0.2); #Eosinphils 0.1 thou/uL (0.0-0.7); #Lymphocytes 1.3 thou/uL (1.20-3.40); #Monocytes 1.1 thou/uL (0.11-0.59); %Basophils 0.6 % (0.0-1.0); %Eosinophils 0.6 % (0.0-10.0); %Lymphocytes 14.1 % (21.0-51.0); %Monocytes 11.3 % (0.0-10.0); %Neutrophils 73.5 % (42.0-75.0); Hemoglobin 8.5 g/dL (12.0-16.0); Mean Corpuscular HGB CONC 32.8 g/dL (32.0-36.0); Mean Corpuscular Hemoglobin 30.9 pg (27.0-31.0); Mean Corpuscular Volume 94.2 fL (78.0-98.0); Mean Platelet Volume 7.4 fL (7.4-10.4); Platelet Count 258 thou/uL (130-400); RBC Distribution Width 15.5 % (11.5-14.5); Red Blood Cell (RBC) Count 2.74 mill/uL (4.20-5.40); White Blood Cell (WBC) Count 9.5 thou/uL (4.8-10.8)
[2021-09-13] MEDS ORDERED: Vancomycin HCl 1.5 GM in Sodium Chloride 0.9% 250 ML 300 ML IVPB SCH (08:45)
[2021-09-13] MEDS ORDERED: Piperacillin/Tazobactam 3.375 GM in Sodium Chloride 0.9% 100 ML IVPB SCH (09:00)
[2021-09-13] MEDS ORDERED: Vancomycin HCl 750 MG in Sodium Chloride 0.9% 250 ML 250 ML IVPB SCH (09:00)
[2021-09-13] MEDS ORDERED: Vancomycin Sliding Scale 1 EACH FS ONE (09:00)
[2021-09-13] MEDS ORDERED: Vancomycin HCl 1.25 GM in Sodium Chloride 0.9% 250 ML 250 ML IVPB SCH (09:00)
[2021-09-13] MEDS ORDERED: Vancomycin HCl 500 MG in Sodium Chloride 0.9% 100 ML IVPB SCH (09:00)
[2021-09-13] MEDS ORDERED: HOLD VANCOMYCIN FOR LEVEL >20 FS SCH (09:00)
[2021-09-13] MEDS ORDERED: Vancomycin 1 GM in Premix Bag 1 BAG IVPB SCH (09:00)
[2021-09-13] MEDS ORDERED: Vancomycin 1.5 GRAM/300 ML BAG 1.5 GM in Premix Bag 1 BAG IVPB SCH (10:00)
[2021-09-13] MEDS: traMADol HCl 50 MG TAB PO PRN (13:00)
[2021-09-13] MEDS: Piperacillin/Tazobactam 3.375 GM in Sodium Chloride 0.9% 100 ML IVPB SCH (13:56)
[2021-09-13] MEDS ORDERED: Piperacillin/Tazobactam 2.25 GM in Sodium Chloride 0.9% 100 ML IVPB SCH (14:00)
[2021-09-13] MEDS ORDERED: traMADol HCl 50 MG TAB PO SCH (19:56)
[2021-09-13] MEDS: Atorvastatin Calcium 40 MG TAB PO SCH (20:50)
[2021-09-14] MEDS: Piperacillin/Tazobactam 3.375 GM in Sodium Chloride 0.9% 100 ML IVPB SCH ×2 (00:55→14:52)
[2021-09-14 04:18] LABS: #Lymphocytes 1.5 thou/uL (1.20-3.40); #Monocytes 1.2 thou/uL (0.11-0.59); %Basophils 0.3 % (0.0-1.0); %Eosinophils 0.3 % (0.0-10.0); %Lymphocytes 15.4 % (21.0-51.0); %Neutrophils 72.1 % (42.0-75.0); Hemoglobin 8.2 g/dL (12.0-16.0); Mean Corpuscular HGB CONC 30.9 g/dL (32.0-36.0); Mean Corpuscular Hemoglobin 29.7 pg (27.0-31.0); Mean Corpuscular Volume 96.1 fL (78.0-98.0); Mean Platelet Volume 7.7 fL (7.4-10.4); Platelet Count 251 thou/uL (130-400); RBC Distribution Width 15.4 % (11.5-14.5); Red Blood Cell (RBC) Count 2.76 mill/uL (4.20-5.40); White Blood Cell (WBC) Count 9.7 thou/uL (4.8-10.8)
[2021-09-14 04:34] LABS: Anion Gap 16 mmol/L (10-20); BUN (Urea Nitrogen) 37 mg/dL (9.8-20.1); Calc. Creatinine Clearance 16 mL/min (70-130); Calcium 9.1 mg/dL (7.8-10.44); Carbon Dioxide 26 mmol/L (23-31); Chloride 101 mmol/L (98-107); Glucose 109 mg/dL (80-115); Potassium 4.3 mmol/L (3.5-5.1); Sodium 139 mmol/L (136-145)
[2021-09-14 07:48] LABS: Vancomycin, Random 20.8 ug/mL (See Comment)
[2021-09-14 08:59] LABS: INR-International Normal Ratio 1.1; Prothrombin Time 14.6 sec (12.0-14.7)
[2021-09-14 09:00] LABS: PTT 33.1 sec (22.9-36.1)
[2021-09-14] MEDS ORDERED: Heparin 10,000 UNITS/ 10 ML VIAL ONE (10:35)
[2021-09-14] MEDS ORDERED: Sodium Bicarbonate 2.5 MEQ/5 ML VIAL ONE (13:13)
[2021-09-14] MEDS ORDERED: Midazolam HCl 2 mg/2 ml Vial ONE (13:13)
[2021-09-14] MEDS ORDERED: Fentanyl 100 MCG/2 ML VIAL ONE (13:13)
[2021-09-14] MEDS ORDERED: Ondansetron PF 4 MG/2 ML Vial ONE (13:55)
[2021-09-14] MEDS: Famotidine 20 MG TAB PO SCH (20:45)
[2021-09-14] MEDS: Atorvastatin Calcium 40 MG TAB PO SCH (20:45)
[2021-09-14] MEDS: traMADol HCl 50 MG TAB PO PRN (20:45)
[2021-09-14] MEDS ORDERED: Docusate 100 MG CAP PO SCH (23:00)
[2021-09-15 04:35] LABS: #Eosinphils 0.1 thou/uL (0.0-0.7); #Lymphocytes 1.5 thou/uL (1.20-3.40); #Monocytes 1.3 thou/uL (0.11-0.59); #Neutrophils 7.1 thou/uL (1.40-6.50); %Basophils 0.3 % (0.0-1.0); %Eosinophils 0.8 % (0.0-10.0); %Lymphocytes 14.7 % (21.0-51.0); %Monocytes 12.6 % (0.0-10.0); %Neutrophils 71.7 % (42.0-75.0); Mean Corpuscular HGB CONC 31.5 g/dL (32.0-36.0); Mean Corpuscular Hemoglobin 30.3 pg (27.0-31.0); Mean Corpuscular Volume 96.2 fL (78.0-98.0); Mean Platelet Volume 7.7 fL (7.4-10.4); Platelet Count 234 thou/uL (130-400); RBC Distribution Width 15.3 % (11.5-14.5); Red Blood Cell (RBC) Count 2.95 mill/uL (4.20-5.40)
[2021-09-15 04:52] LABS: Anion Gap 16 mmol/L (10-20); BUN (Urea Nitrogen) 16 mg/dL (9.8-20.1); Calc. Creatinine Clearance 22 mL/min (70-130); Calcium 9.3 mg/dL (7.8-10.44); Carbon Dioxide 28 mmol/L (23-31); Chloride 100 mmol/L (98-107); Glucose 127 mg/dL (80-115); Potassium 3.7 mmol/L (3.5-5.1); Sodium 140 mmol/L (136-145)
[2021-09-15] MEDS: Famotidine 20 MG TAB PO SCH ×2 (08:42→20:01)
[2021-09-15] MEDS: traMADol HCl 50 MG TAB PO PRN (08:43)
[2021-09-15] MEDS: Polyethylene Glycol 3350 17 GM Packet PO PRN (09:46)
[2021-09-15] MEDS: HumaLOG 300 UNITS/3 ML VIAL SC PRN (16:39)
[2021-09-15] MEDS ORDERED: Acetaminophen/Codeine 30-300mg Tablet PO SCH (19:00)
[2021-09-15] MEDS: Atorvastatin Calcium 40 MG TAB PO SCH (20:00)
[2021-09-15] MEDS: Senokot S 8.6-50 MG TAB PO SCH (20:02)
[2021-09-16 05:06] LABS: #Eosinphils 0.1 thou/uL (0.0-0.7); #Lymphocytes 1.5 thou/uL (1.20-3.40); #Monocytes 1.1 thou/uL (0.11-0.59); #Neutrophils 5.9 thou/uL (1.40-6.50); %Eosinophils 0.6 % (0.0-10.0); %Lymphocytes 17.8 % (21.0-51.0); %Monocytes 12.2 % (0.0-10.0); %Neutrophils 69.4 % (42.0-75.0); Hemoglobin 8.1 g/dL (12.0-16.0); Mean Corpuscular HGB CONC 30.7 g/dL (32.0-36.0); Mean Corpuscular Hemoglobin 29.3 pg (27.0-31.0); Mean Corpuscular Volume 95.6 fL (78.0-98.0); Mean Platelet Volume 7.4 fL (7.4-10.4); Platelet Count 241 thou/uL (130-400); RBC Distribution Width 15.5 % (11.5-14.5); Red Blood Cell (RBC) Count 2.78 mill/uL (4.20-5.40); White Blood Cell (WBC) Count 8.5 thou/uL (4.8-10.8)
[2021-09-16 05:26] LABS: Anion Gap 15 mmol/L (10-20); BUN (Urea Nitrogen) 25 mg/dL (9.8-20.1); Calc. Creatinine Clearance 15 mL/min (70-130); Calcium 9.6 mg/dL (7.8-10.44); Carbon Dioxide 28 mmol/L (23-31); Chloride 100 mmol/L (98-107); Glucose 116 mg/dL (80-115); Potassium 3.9 mmol/L (3.5-5.1); Sodium 139 mmol/L (136-145)
[2021-09-16] MEDS: Senokot S 8.6-50 MG TAB PO SCH ×2 (08:11→21:04)
[2021-09-16] MEDS: Famotidine 20 MG TAB PO SCH ×2 (08:11→21:04)
[2021-09-16] MEDS: traMADol HCl 50 MG TAB PO PRN ×2 (08:12→21:04)
[2021-09-16] MEDS: Morphine 4 MG/ML VIAL SLOW IVP PRN (08:27)
[2021-09-16] MEDS: Ondansetron ODT 4 MG TAB PO PRN (08:29)
[2021-09-16] MEDS: Atorvastatin Calcium 40 MG TAB PO SCH (21:04)
[2021-09-17] MEDS ORDERED: Heparin 10,000 UNITS/ 10 ML VIAL ONE (09:17)
[2021-09-17 09:41] LABS: #Lymphocytes 1.3 thou/uL (1.20-3.40); #Monocytes 0.5 thou/uL (0.11-0.59); #Neutrophils 5.4 thou/uL (1.40-6.50); %Basophils 0.2 % (0.0-1.0); %Eosinophils 0.5 % (0.0-10.0); %Lymphocytes 17.8 % (21.0-51.0); %Monocytes 6.5 % (0.0-10.0); Mean Corpuscular HGB CONC 31.1 g/dL (32.0-36.0); Mean Corpuscular Hemoglobin 29.6 pg (27.0-31.0); Mean Platelet Volume 7.7 fL (7.4-10.4); Platelet Count 244 thou/uL (130-400); RBC Distribution Width 15.4 % (11.5-14.5); White Blood Cell (WBC) Count 7.2 thou/uL (4.8-10.8)
[2021-09-17 10:04] LABS: Anion Gap 15 mmol/L (10-20); BUN (Urea Nitrogen) 25 mg/dL (9.8-20.1); Calc. Creatinine Clearance 16 mL/min (70-130); Calcium 9.1 mg/dL (7.8-10.44); Carbon Dioxide 29 mmol/L (23-31); Chloride 98 mmol/L (98-107); Glucose 90 mg/dL (80-115); Potassium 3.7 mmol/L (3.5-5.1); Sodium 138 mmol/L (136-145)
[2021-09-17] MEDS: Senokot S 8.6-50 MG TAB PO SCH ×2 (13:00→21:03)
[2021-09-17] MEDS: Morphine 4 MG/ML VIAL SLOW IVP PRN ×2 (13:06→22:49)
[2021-09-17] MEDS: Famotidine 20 MG TAB PO SCH (14:42)
[2021-09-17] MEDS: Ondansetron ODT 4 MG TAB PO PRN ×2 (16:01→22:48)
[2021-09-17] MEDS: Atorvastatin Calcium 40 MG TAB PO SCH (21:01)
[2021-09-17] MEDS: traMADol HCl 50 MG TAB PO PRN (21:01)
[2021-09-17] MEDS ORDERED: Methocarbamol 500 MG TAB PO PRN (21:05)
[2021-09-17] MEDS ORDERED: tiZANidine HCl 4 MG TAB PO SCH (21:07)
[2021-09-18 05:26] LABS: Anion Gap 14 mmol/L (10-20); BUN (Urea Nitrogen) 16 mg/dL (9.8-20.1); Calc. Creatinine Clearance 19 mL/min (70-130); Calcium 9.3 mg/dL (7.8-10.44); Carbon Dioxide 29 mmol/L (23-31); Chloride 100 mmol/L (98-107); Glucose 170 mg/dL (80-115); Potassium 4.1 mmol/L (3.5-5.1); Sodium 139 mmol/L (136-145)
[2021-09-18 05:32] LABS: Hemoglobin 8.3 g/dL (12.0-16.0); Mean Corpuscular HGB CONC 30.2 g/dL (32.0-36.0); Mean Platelet Volume 7.7 fL (7.4-10.4); Platelet Count 239 thou/uL (130-400); RBC Distribution Width 15.2 % (11.5-14.5); Red Blood Cell (RBC) Count 2.87 mill/uL (4.20-5.40); White Blood Cell (WBC) Count 8.4 thou/uL (4.8-10.8)
[2021-09-18] MEDS: HumaLOG 300 UNITS/3 ML VIAL SC PRN ×2 (06:06→20:47)
[2021-09-18 06:15] LABS: Band 7 % (5-11); Lymphocytes 22 % (21-51); MDiff Complete? YES; Monocytes 10 % (0-10); Neutrophil 61 % (42-75)
[2021-09-18] MEDS: Senokot S 8.6-50 MG TAB PO SCH ×2 (09:24→20:09)
[2021-09-18] MEDS: Famotidine 20 MG TAB PO SCH (09:24)
[2021-09-18] MEDS: Polyethylene Glycol 3350 17 GM Packet PO PRN (17:59)
[2021-09-18] MEDS: Atorvastatin Calcium 40 MG TAB PO SCH (20:08)
[2021-09-18] MEDS: Baclofen 10 MG TAB PO SCH (20:08)
[2021-09-19] MEDS: traMADol HCl 50 MG TAB PO PRN (01:51)
[2021-09-19] MEDS: Ondansetron ODT 4 MG TAB PO PRN ×2 (05:41→10:36)
[2021-09-19 07:13] LABS: #Eosinphils 0.1 thou/uL (0.0-0.7); #Lymphocytes 1.4 thou/uL (1.20-3.40); #Monocytes 1.3 thou/uL (0.11-0.59); #Neutrophils 8.6 thou/uL (1.40-6.50); %Basophils 0.2 % (0.0-1.0); %Eosinophils 0.8 % (0.0-10.0); %Lymphocytes 11.9 % (21.0-51.0); Hemoglobin 8.2 g/dL (12.0-16.0); Mean Corpuscular HGB CONC 30.1 g/dL (32.0-36.0); Mean Corpuscular Hemoglobin 29.2 pg (27.0-31.0); Mean Corpuscular Volume 97.2 fL (78.0-98.0); Mean Platelet Volume 7.3 fL (7.4-10.4); Platelet Count 239 thou/uL (130-400); RBC Distribution Width 15.4 % (11.5-14.5); Red Blood Cell (RBC) Count 2.82 mill/uL (4.20-5.40); White Blood Cell (WBC) Count 11.4 thou/uL (4.8-10.8)
[2021-09-19 07:27] LABS: Anion Gap 15 mmol/L (10-20); BUN (Urea Nitrogen) 30 mg/dL (9.8-20.1); Calc. Creatinine Clearance 14 mL/min (70-130); Calcium 9.9 mg/dL (7.8-10.44); Carbon Dioxide 27 mmol/L (23-31); Chloride 100 mmol/L (98-107); Glucose 211 mg/dL (80-115); Sodium 138 mmol/L (136-145)
[2021-09-19 08:35] LABS: Vancomycin, Random 8.3 ug/mL (See Comment)
[2021-09-19] MEDS ORDERED: Vancomycin 1 GM in Premix Bag 1 BAG IVPB SCH ×2 (08:45→10:45)
[2021-09-19] MEDS: Famotidine 20 MG TAB PO SCH (10:36)
[2021-09-19] MEDS: Morphine 4 MG/ML VIAL SLOW IVP PRN (10:36)
[2021-09-19] MEDS: Baclofen 10 MG TAB PO SCH ×2 (10:36→21:11)
[2021-09-19] MEDS ORDERED: Heparin 10,000 UNITS/ 10 ML VIAL ONE (11:42)
[2021-09-19 14:13] LABS: SARS-CoV-2 PCR by NAA Not Detected (NotDetected)
[2021-09-19] MEDS: traMADol HCl 50 MG TAB PO SCH (15:45)
[2021-09-19] MEDS: Senokot S 8.6-50 MG TAB PO SCH ×2 (17:32→21:11)
[2021-09-19] MEDS: EPOETIN ALFA-EPBX (ESRD) 4,000 UNIT/ML VIAL SC SCH (17:33)
[2021-09-19] MEDS: Atorvastatin Calcium 40 MG TAB PO SCH (21:16)
[2021-09-20] MEDS: traMADol HCl 50 MG TAB PO SCH ×2 (03:08→08:16)
[2021-09-20 07:36] LABS: Actual Bicarbonate (HCO3a) 27.9 mEq/L (22-28); Base Excess (BEa) 3.5 mEq/L (-2.0 to +3.0); CO2 Tension 41.3 mmHg (35.0-45.0); Calcium, Ionized (arterial) 1.22 mmol/L (1.12-1.30); Carboxyhemoglobin (COHb) 1.1 gm% (0.0-3.0); Hemoglobin (Hb) 8.6 g/dL (12.0-16.0); Potassium - ABG Lab 4.13 mmol/L (3.70-5.30); pH, Arterial 7.45 (7.35-7.45)
[2021-09-20 08:01] LABS: O2 Tension (PaO2), arterial 49.5 mmHg (> 80.0)
[2021-09-20] MEDS: Baclofen 10 MG TAB PO SCH (08:16)
[2021-09-20] MEDS: Senokot S 8.6-50 MG TAB PO SCH ×2 (08:16→20:18)
[2021-09-20] MEDS: Famotidine 20 MG TAB PO SCH (08:16)
[2021-09-20 08:44] LABS: #Lymphocytes 2.2 thou/uL (1.20-3.40); #Monocytes 1.8 thou/uL (0.11-0.59); #Neutrophils 10.2 thou/uL (1.40-6.50); %Basophils 0.3 % (0.0-1.0); %Eosinophils 0.3 % (0.0-10.0); %Lymphocytes 15.4 % (21.0-51.0); %Monocytes 12.5 % (0.0-10.0); %Neutrophils 71.5 % (42.0-75.0); Hemoglobin 9.2 g/dL (12.0-16.0); Mean Corpuscular HGB CONC 30.9 g/dL (32.0-36.0); Mean Corpuscular Hemoglobin 29.4 pg (27.0-31.0); Mean Corpuscular Volume 95.3 fL (78.0-98.0); Mean Platelet Volume 8.2 fL (7.4-10.4); Platelet Count 235 thou/uL (130-400); RBC Distribution Width 15.4 % (11.5-14.5); Red Blood Cell (RBC) Count 3.13 mill/uL (4.20-5.40); White Blood Cell (WBC) Count 14.2 thou/uL (4.8-10.8)
[2021-09-20 08:49] LABS: Anion Gap 19 mmol/L (10-20); BUN (Urea Nitrogen) 15 mg/dL (9.8-20.1); Calc. Creatinine Clearance 19 mL/min (70-130); Calcium 9.7 mg/dL (7.8-10.44); Carbon Dioxide 27 mmol/L (23-31); Chloride 99 mmol/L (98-107); Glucose 212 mg/dL (80-115); Potassium 4.6 mmol/L (3.5-5.1); Sodium 140 mmol/L (136-145)
[2021-09-20 09:39] LABS: Vancomycin, Trough 13.9 ug/mL
[2021-09-20] MEDS: Lidocaine 5% Patch TD SCH (10:42)
[2021-09-20] MEDS ORDERED: Vancomycin HCl 750 MG in Sodium Chloride 0.9% 250 ML 250 ML IVPB SCH (11:00)
[2021-09-20] MEDS ORDERED: Fentanyl 100 MCG/2 ML VIAL ONE (17:16)
[2021-09-20] MEDS ORDERED: Fentanyl 100 MCG/2 ML VIAL SLOW IVP PRN (17:28)
[2021-09-20] MEDS ORDERED: Fentanyl 100 MCG/2 ML VIAL SLOW IVP SCH (18:00)
[2021-09-20] MEDS: Atorvastatin Calcium 40 MG TAB PO SCH (20:18)
[2021-09-20] MEDS: Transdermal Patch Removal TOP SCH (20:26)
[2021-09-21 06:34] LABS: ALT (SGPT) 8 U/L (8-55); AST (SGOT) 17 U/L (5-34); Albumin 2.6 g/dL (3.4-4.8); Alkaline Phosphatase 145 U/L (40-110); Anion Gap 18 mmol/L (10-20); BUN (Urea Nitrogen) 27 mg/dL (9.8-20.1); Bilirubin, Total 0.4 mg/dL (0.2-1.2); Calc. Creatinine Clearance 14 mL/min (70-130); Calcium 9.5 mg/dL (7.8-10.44); Carbon Dioxide 24 mmol/L (23-31); Chloride 100 mmol/L (98-107); Globulin 3.8 g/dL (2.4-3.5); Glucose 243 mg/dL (80-115); Magnesium 2.3 mg/dL (1.6-2.6); Potassium 4.5 mmol/L (3.5-5.1); Protein, Total 6.4 g/dL (5.8-8.1); Sodium 137 mmol/L (136-145)
[2021-09-21 07:36] LABS: Vancomycin, Random 22.1 ug/mL (See Comment)
[2021-09-21] MEDS ORDERED: Haloperidol Lactate 5 MG/ML VIAL SLOW IVP PRN (09:04)
[2021-09-21] MEDS: Haloperidol Lactate 5 MG/ML VIAL SLOW IVP PRN ×2 (09:14→20:02)
[2021-09-21] MEDS: Famotidine 20 MG TAB PO SCH (09:14)
[2021-09-21] MEDS: Lidocaine 5% Patch TD SCH (09:15)
[2021-09-21] MEDS: Senokot S 8.6-50 MG TAB PO SCH ×2 (09:15→21:23)
[2021-09-21] MEDS ORDERED: Sodium Chloride 0.9% 500 ML IV SCH (16:15)
[2021-09-21] MEDS ORDERED: Sodium Chloride 0.9% 500 ML IVPB SCH (19:00)
[2021-09-21] MEDS: Atorvastatin Calcium 40 MG TAB PO SCH (21:22)
[2021-09-21] MEDS: Transdermal Patch Removal TOP SCH (21:23)
[2021-09-22 04:31] LABS: #Lymphocytes 1.2 thou/uL (1.20-3.40); #Monocytes 1.3 thou/uL (0.11-0.59); #Neutrophils 8.1 thou/uL (1.40-6.50); %Basophils 0.4 % (0.0-1.0); %Eosinophils 0.1 % (0.0-10.0); %Lymphocytes 11.6 % (21.0-51.0); %Monocytes 12.3 % (0.0-10.0); %Neutrophils 75.6 % (42.0-75.0); Hemoglobin 7.5 g/dL (12.0-16.0); Mean Corpuscular HGB CONC 30.8 g/dL (32.0-36.0); Mean Corpuscular Hemoglobin 29.2 pg (27.0-31.0); Mean Corpuscular Volume 94.9 fL (78.0-98.0); Mean Platelet Volume 7.6 fL (7.4-10.4); Platelet Count 194 thou/uL (130-400); RBC Distribution Width 15.6 % (11.5-14.5); Red Blood Cell (RBC) Count 2.56 mill/uL (4.20-5.40); White Blood Cell (WBC) Count 10.7 thou/uL (4.8-10.8)
[2021-09-22 04:54] LABS: Anion Gap 18 mmol/L (10-20); BUN (Urea Nitrogen) 42 mg/dL (9.8-20.1); Calc. Creatinine Clearance 12 mL/min (70-130); Calcium 9.4 mg/dL (7.8-10.44); Carbon Dioxide 26 mmol/L (23-31); Chloride 102 mmol/L (98-107); Glucose 267 mg/dL (80-115); Potassium 4.5 mmol/L (3.5-5.1); Sodium 141 mmol/L (136-145)
[2021-09-22] MEDS: Lidocaine 5% Patch TD SCH (09:32)
[2021-09-22] MEDS: Famotidine 20 MG TAB PO SCH (09:33)
[2021-09-22] MEDS: Senokot S 8.6-50 MG TAB PO SCH ×2 (09:33→20:45)
[2021-09-22] MEDS ORDERED: HYDROmorphone 0.5 MG/0.5 ML SYRINGE SLOW IVP PRN (15:27)
[2021-09-22] MEDS ORDERED: Haloperidol Lactate 5 MG/ML VIAL SLOW IVP PRN (15:29)
[2021-09-22] MEDS: Atorvastatin Calcium 40 MG TAB PO SCH (20:45)
[2021-09-22] MEDS: Transdermal Patch Removal TOP SCH (20:45)
[2021-09-23 03:59] LABS: #Lymphocytes 1.6 thou/uL (1.20-3.40); #Monocytes 0.9 thou/uL (0.11-0.59); %Basophils 0.3 % (0.0-1.0); %Eosinophils 0.2 % (0.0-10.0); %Lymphocytes 16.4 % (21.0-51.0); %Monocytes 9.2 % (0.0-10.0); %Neutrophils 73.9 % (42.0-75.0); Hemoglobin 8.8 g/dL (12.0-16.0); Mean Corpuscular HGB CONC 30.9 g/dL (32.0-36.0); Mean Corpuscular Hemoglobin 29.4 pg (27.0-31.0); Mean Corpuscular Volume 95.2 fL (78.0-98.0); Mean Platelet Volume 7.8 fL (7.4-10.4); Platelet Count 224 thou/uL (130-400); RBC Distribution Width 15.5 % (11.5-14.5); Red Blood Cell (RBC) Count 2.98 mill/uL (4.20-5.40); White Blood Cell (WBC) Count 9.5 thou/uL (4.8-10.8)
[2021-09-23 04:12] LABS: Anion Gap 21 mmol/L (10-20); BUN (Urea Nitrogen) 26 mg/dL (9.8-20.1); Calc. Creatinine Clearance 18 mL/min (70-130); Calcium 9.7 mg/dL (7.8-10.44); Carbon Dioxide 23 mmol/L (23-31); Chloride 100 mmol/L (98-107); Glucose 190 mg/dL (80-115); Potassium 4.5 mmol/L (3.5-5.1); Sodium 139 mmol/L (136-145)
[2021-09-23] MEDS: Famotidine 20 MG TAB PO SCH (08:59)
[2021-09-23] MEDS: Lidocaine 5% Patch TD SCH (08:59)
[2021-09-23] MEDS: Senokot S 8.6-50 MG TAB PO SCH ×2 (09:00→20:25)
[2021-09-23] MEDS: Transdermal Patch Removal TOP SCH (20:25)
[2021-09-23] MEDS: Atorvastatin Calcium 40 MG TAB PO SCH (20:25)
[2021-09-23] MEDS: HumaLOG 300 UNITS/3 ML VIAL SC PRN (20:33)
[2021-09-24] MEDS: HumaLOG 300 UNITS/3 ML VIAL SC PRN (06:29)
[2021-09-24 08:46] LABS: #Lymphocytes 1.6 thou/uL (1.20-3.40); #Monocytes 1.2 thou/uL (0.11-0.59); #Neutrophils 6.9 thou/uL (1.40-6.50); %Basophils 0.4 % (0.0-1.0); %Eosinophils 0.3 % (0.0-10.0); %Lymphocytes 15.9 % (21.0-51.0); %Monocytes 12.7 % (0.0-10.0); %Neutrophils 70.7 % (42.0-75.0); Hemoglobin 8.8 g/dL (12.0-16.0); Mean Corpuscular HGB CONC 30.6 g/dL (32.0-36.0); Mean Corpuscular Volume 94.6 fL (78.0-98.0); Mean Platelet Volume 7.9 fL (7.4-10.4); Platelet Count 193 thou/uL (130-400); RBC Distribution Width 15.6 % (11.5-14.5); Red Blood Cell (RBC) Count 3.03 mill/uL (4.20-5.40); White Blood Cell (WBC) Count 9.7 thou/uL (4.8-10.8)
[2021-09-24] MEDS: Lidocaine 5% Patch TD SCH (08:52)
[2021-09-24] MEDS: Famotidine 20 MG TAB PO SCH (08:52)
[2021-09-24] MEDS: Senokot S 8.6-50 MG TAB PO SCH ×2 (08:52→20:39)
[2021-09-24 09:12] LABS: Anion Gap 15 mmol/L (10-20); BUN (Urea Nitrogen) 44 mg/dL (9.8-20.1); Calc. Creatinine Clearance 12 mL/min (70-130); Calcium 9.5 mg/dL (7.8-10.44); Carbon Dioxide 24 mmol/L (23-31); Chloride 102 mmol/L (98-107); Glucose 175 mg/dL (80-115); Potassium 4.2 mmol/L (3.5-5.1); Sodium 137 mmol/L (136-145)
[2021-09-24 09:14] LABS: Vancomycin, Random 17.1 ug/mL (See Comment)
[2021-09-24] MEDS ORDERED: Heparin 10,000 UNITS/ 10 ML VIAL ONE (09:27)
[2021-09-24] MEDS: Atorvastatin Calcium 40 MG TAB PO SCH (20:39)
[2021-09-24] MEDS: Transdermal Patch Removal TOP SCH (20:39)
[2021-09-25] MEDS ORDERED: Metoprolol Tartrate 5 MG/5 ML VIAL IVP SCH (00:19)
[2021-09-25] MEDS ORDERED: Apixaban 2.5 MG TAB PO SCH (10:00)
[2021-09-25] MEDS: Senokot S 8.6-50 MG TAB PO SCH ×2 (10:16→20:54)
[2021-09-25] MEDS: Famotidine 20 MG TAB PO SCH (10:16)
[2021-09-25] MEDS: Amiodarone 200 MG TAB PO SCH (10:16)
[2021-09-25] MEDS: Lidocaine 5% Patch TD SCH (13:18)
[2021-09-25] MEDS: HYDROmorphone 2 MG TAB PO PRN (13:54)
[2021-09-25] MEDS: Apixaban 2.5 MG TAB PO SCH (20:55)
[2021-09-25] MEDS: Atorvastatin Calcium 40 MG TAB PO SCH (20:55)
[2021-09-25] MEDS: Transdermal Patch Removal TOP SCH (20:56)
[2021-09-25] MEDS: HumaLOG 300 UNITS/3 ML VIAL SC PRN (21:07)
[2021-09-26 04:04] LABS: Anion Gap 12 mmol/L (10-20); BUN (Urea Nitrogen) 29 mg/dL (9.8-20.1); Calc. Creatinine Clearance 15 mL/min (70-130); Calcium 8.9 mg/dL (7.8-10.44); Carbon Dioxide 29 mmol/L (23-31); Chloride 101 mmol/L (98-107); Glucose 168 mg/dL (80-115); Potassium 3.5 mmol/L (3.5-5.1); Sodium 138 mmol/L (136-145)
[2021-09-26 04:12] LABS: Hemoglobin 7.7 g/dL (12.0-16.0); Hypochromia SLIGHT = 6-15 cells (100X) (0-5/hpf); Lymphocytes 24 % (21-51); MDiff Complete? YES; Mean Corpuscular HGB CONC 30.2 g/dL (32.0-36.0); Monocytes 10 % (0-10); Neutrophil 66 % (42-75); Platelet Count 168 thou/uL (130-400); Platelet Morphology Comment Appears Adequate; Polychromasia SLIGHT = 2-3 cells (100X) (0-2/hpf); RBC Distribution Width 15.8 % (11.5-14.5); Red Blood Cell (RBC) Count 2.66 mill/uL (4.20-5.40); White Blood Cell (WBC) Count 9.4 thou/uL (4.8-10.8)
[2021-09-26] MEDS: Famotidine 20 MG TAB PO SCH (08:00)
[2021-09-26] MEDS: Amiodarone 200 MG TAB PO SCH (08:00)
[2021-09-26] MEDS: Apixaban 2.5 MG TAB PO SCH ×2 (08:00→22:37)
[2021-09-26] MEDS: EPOETIN ALFA-EPBX (ESRD) 4,000 UNIT/ML VIAL SC SCH (08:01)
[2021-09-26] MEDS: Lidocaine 5% Patch TD SCH (08:01)
[2021-09-26] MEDS: Senokot S 8.6-50 MG TAB PO SCH ×2 (08:02→22:37)
[2021-09-26] MEDS ORDERED: Heparin 10,000 UNITS/ 10 ML VIAL ONE (09:30)
[2021-09-26] MEDS: Atorvastatin Calcium 40 MG TAB PO SCH (22:37)
[2021-09-26] MEDS: Transdermal Patch Removal TOP SCH (22:37)
[2021-09-26] MEDS: HYDROmorphone 2 MG TAB PO PRN (22:39)
[2021-09-26] MEDS ORDERED: Albumin 25% 25 GM/100 ML BOT IVPB SCH (23:45)
[2021-09-27 03:49] LABS: Hemoglobin 7.6 g/dL (12.0-16.0); Mean Corpuscular HGB CONC 30.4 g/dL (32.0-36.0); Mean Corpuscular Hemoglobin 28.8 pg (27.0-31.0); Mean Corpuscular Volume 94.9 fL (78.0-98.0); Mean Platelet Volume 8.1 fL (7.4-10.4); Platelet Count 157 thou/uL (130-400); RBC Distribution Width 15.5 % (11.5-14.5); Red Blood Cell (RBC) Count 2.65 mill/uL (4.20-5.40); White Blood Cell (WBC) Count 9.2 thou/uL (4.8-10.8)
[2021-09-27 03:50] LABS: Band 6 % (5-11); Eosinophils 1 % (0-10); Hypochromia SLIGHT = 6-15 cells (100X) (0-5/hpf); Lymphocytes 9 % (21-51); MDiff Complete? YES; Monocytes 20 % (0-10); Neutrophil 64 % (42-75); Platelet Morphology Comment Appears Adequate
[2021-09-27 04:01] LABS: Anion Gap 19 mmol/L (10-20); BUN (Urea Nitrogen) 15 mg/dL (9.8-20.1); Calc. Creatinine Clearance 22 mL/min (70-130); Calcium 9.4 mg/dL (7.8-10.44); Carbon Dioxide 23 mmol/L (23-31); Chloride 102 mmol/L (98-107); Glucose 160 mg/dL (80-115); Magnesium 2.1 mg/dL (1.6-2.6); Sodium 140 mmol/L (136-145)
[2021-09-27 04:54] LABS: Vancomycin, Random 14.8 ug/mL (See Comment)
[2021-09-27] MEDS: Senokot S 8.6-50 MG TAB PO SCH ×2 (07:59→20:44)
[2021-09-27] MEDS: Apixaban 2.5 MG TAB PO SCH ×2 (08:00→20:44)
[2021-09-27] MEDS: Amiodarone 200 MG TAB PO SCH (08:00)
[2021-09-27] MEDS: Famotidine 20 MG TAB PO SCH (08:00)
[2021-09-27] MEDS: Lidocaine 5% Patch TD SCH (08:01)
[2021-09-27] MEDS: HumaLOG 300 UNITS/3 ML VIAL SC PRN ×2 (11:09→17:00)
[2021-09-27] MEDS ORDERED: tiZANidine HCl 4 MG TAB PO PRN (13:30)
[2021-09-27] MEDS: Acetaminophen 325 MG TAB PO PRN ×2 (13:52→20:45)
[2021-09-27] MEDS: Atorvastatin Calcium 40 MG TAB PO SCH (20:44)
[2021-09-27] MEDS: tiZANidine HCl 4 MG TAB PO PRN (22:17)
[2021-09-27] MEDS: Transdermal Patch Removal TOP SCH (22:17)
[2021-09-28 07:14] LABS: Iron Binding Capacity, Total 128 mcg/dL (265-497)
[2021-09-28 07:15] LABS: Iron 24 ug/dL (50-170)
[2021-09-28 08:23] LABS: Ferritin 4438.34 ng/mL (10-291)
[2021-09-28] MEDS: Lidocaine 5% Patch TD SCH (08:36)
[2021-09-28] MEDS: Apixaban 2.5 MG TAB PO SCH (08:37)
[2021-09-28] MEDS: Senokot S 8.6-50 MG TAB PO SCH ×2 (08:37→20:55)
[2021-09-28] MEDS: Famotidine 20 MG TAB PO SCH (08:37)
[2021-09-28] MEDS: Amiodarone 200 MG TAB PO SCH (08:37)
[2021-09-28 10:37] LABS: #Lymphocytes 1.2 thou/uL (1.20-3.40); #Monocytes 0.9 thou/uL (0.11-0.59); #Neutrophils 5.7 thou/uL (1.40-6.50); %Basophils 0.3 % (0.0-1.0); %Eosinophils 0.6 % (0.0-10.0); %Lymphocytes 15.4 % (21.0-51.0); %Monocytes 11.6 % (0.0-10.0); %Neutrophils 72.2 % (42.0-75.0); Hemoglobin 7.7 g/dL (12.0-16.0); Mean Corpuscular HGB CONC 30.7 g/dL (32.0-36.0); Mean Corpuscular Volume 94.4 fL (78.0-98.0); Platelet Count 188 thou/uL (130-400); RBC Distribution Width 15.4 % (11.5-14.5); Red Blood Cell (RBC) Count 2.67 mill/uL (4.20-5.40); Vancomycin, Random 7.3 ug/mL (See Comment); White Blood Cell (WBC) Count 7.9 thou/uL (4.8-10.8)
[2021-09-28 10:40] LABS: Anion Gap 12 mmol/L (10-20); BUN (Urea Nitrogen) 14 mg/dL (9.8-20.1); Calc. Creatinine Clearance 26 mL/min (70-130); Calcium 8.9 mg/dL (7.8-10.44); Carbon Dioxide 31 mmol/L (23-31); Chloride 98 mmol/L (98-107); Glucose 127 mg/dL (80-115); Potassium 3.4 mmol/L (3.5-5.1); Sodium 138 mmol/L (136-145)
[2021-09-28 10:42] LABS: Phosphorus 1.7 mg/dL (2.3-4.7)
[2021-09-28 11:55] LABS: SARS-CoV-2 PCR by NAA Not Detected (NotDetected)
[2021-09-28] MEDS ORDERED: Heparin 10,000 UNITS/ 10 ML VIAL ONE (12:09)
[2021-09-28] MEDS: Acetaminophen 325 MG TAB PO PRN ×2 (17:04→22:48)
[2021-09-28] MEDS: tiZANidine HCl 4 MG TAB PO PRN ×2 (17:04→22:48)
[2021-09-28] MEDS: Atorvastatin Calcium 40 MG TAB PO SCH (20:55)
[2021-09-28] MEDS ORDERED: Albumin 25% 25 GM/100 ML BOT IVPB SCH (22:45)
[2021-09-28] MEDS: Transdermal Patch Removal TOP SCH (22:49)
[2021-09-29 04:37] LABS: Anion Gap 17 mmol/L (10-20); BUN (Urea Nitrogen) 16 mg/dL (9.8-20.1); Calc. Creatinine Clearance 20 mL/min (70-130); Calcium 9.6 mg/dL (7.8-10.44); Carbon Dioxide 25 mmol/L (23-31); Chloride 98 mmol/L (98-107); Glucose 147 mg/dL (80-115); Phosphorus 3.2 mg/dL (2.3-4.7); Sodium 136 mmol/L (136-145)
[2021-09-29 05:40] LABS: Band 9 % (5-11); Eosinophils 3 % (0-10); Hemoglobin 7.6 g/dL (12.0-16.0); Lymphocytes 28 % (21-51); MDiff Complete? YES; Mean Corpuscular HGB CONC 30.8 g/dL (32.0-36.0); Mean Corpuscular Hemoglobin 28.9 pg (27.0-31.0); Mean Corpuscular Volume 93.9 fL (78.0-98.0); Mean Platelet Volume 8.3 fL (7.4-10.4); Monocytes 5 % (0-10); Neutrophil 55 % (42-75); Platelet Count 172 thou/uL (130-400); RBC Distribution Width 15.3 % (11.5-14.5); Red Blood Cell (RBC) Count 2.64 mill/uL (4.20-5.40)
[2021-09-29] MEDS: Senokot S 8.6-50 MG TAB PO SCH ×2 (09:06→20:50)
[2021-09-29] MEDS: Lidocaine 5% Patch TD SCH (09:06)
[2021-09-29] MEDS: Amiodarone 200 MG TAB PO SCH (09:06)
[2021-09-29] MEDS: Pantoprazole 40 MG VIAL IVP SCH (09:06)
[2021-09-29] MEDS: tiZANidine HCl 4 MG TAB PO PRN ×2 (09:13→16:03)
[2021-09-29] MEDS: Acetaminophen 325 MG TAB PO PRN ×2 (09:13→16:02)
[2021-09-29] MEDS: Atorvastatin Calcium 40 MG TAB PO SCH (20:47)
[2021-09-29] MEDS: Aspirin 81 mg Enteric Coated Tablet PO SCH (20:48)
[2021-09-29] MEDS: Apixaban 2.5 MG TAB PO SCH (20:48)
[2021-09-29] MEDS: Transdermal Patch Removal TOP SCH (20:48)
[2021-09-30] MEDS: tiZANidine HCl 4 MG TAB PO PRN (09:45)
[2021-09-30] MEDS: Lidocaine 5% Patch TD SCH (09:45)
[2021-09-30] MEDS: Acetaminophen 325 MG TAB PO PRN (09:45)
[2021-09-30] MEDS: Senokot S 8.6-50 MG TAB PO SCH ×2 (09:46→21:48)
[2021-09-30] MEDS: Apixaban 2.5 MG TAB PO SCH ×2 (09:46→21:48)
[2021-09-30] MEDS: Pantoprazole 40 MG VIAL IVP SCH (09:46)
[2021-09-30] MEDS: Amiodarone 200 MG TAB PO SCH (09:46)
[2021-09-30] MEDS ORDERED: Fludrocortisone Acetate 0.1 MG TAB PO SCH (15:00)
[2021-09-30] MEDS: Transdermal Patch Removal TOP SCH (21:48)
[2021-09-30] MEDS: Atorvastatin Calcium 40 MG TAB PO SCH (21:48)
[2021-09-30] MEDS: Aspirin 81 mg Enteric Coated Tablet PO SCH (21:48)
[2021-10-01 07:41] LABS: Anion Gap 17 mmol/L (10-20); BUN (Urea Nitrogen) 42 mg/dL (9.8-20.1); Calc. Creatinine Clearance 10 mL/min (70-130); Calcium 9.8 mg/dL (7.8-10.44); Carbon Dioxide 25 mmol/L (23-31); Chloride 97 mmol/L (98-107); Glucose 179 mg/dL (80-115); Potassium 4.4 mmol/L (3.5-5.1); Sodium 135 mmol/L (136-145)
[2021-10-01 08:06] LABS: #Eosinphils 0.1 thou/uL (0.0-0.7); #Lymphocytes 1.6 thou/uL (1.20-3.40); #Monocytes 1.2 thou/uL (0.11-0.59); #Neutrophils 5.6 thou/uL (1.40-6.50); %Basophils 0.5 % (0.0-1.0); %Monocytes 13.5 % (0.0-10.0); %Neutrophils 65.9 % (42.0-75.0); Hemoglobin 7.7 g/dL (12.0-16.0); Mean Corpuscular HGB CONC 29.8 g/dL (32.0-36.0); Mean Corpuscular Hemoglobin 27.8 pg (27.0-31.0); Mean Corpuscular Volume 93.1 fL (78.0-98.0); Mean Platelet Volume 8.6 fL (7.4-10.4); Platelet Count 230 thou/uL (130-400); RBC Distribution Width 15.4 % (11.5-14.5); Red Blood Cell (RBC) Count 2.77 mill/uL (4.20-5.40); White Blood Cell (WBC) Count 8.5 thou/uL (4.8-10.8)
[2021-10-01] MEDS: Senokot S 8.6-50 MG TAB PO SCH ×2 (09:20→21:23)
[2021-10-01] MEDS: Apixaban 2.5 MG TAB PO SCH ×2 (09:20→21:22)
[2021-10-01] MEDS: Pantoprazole 40 MG VIAL IVP SCH (09:21)
[2021-10-01 10:30] LABS: Hypochromia SLIGHT = 6-15 cells (100X) (0-5/hpf); MDiff Complete? YES; Platelet Morphology Comment Appears Adequate; Polychromasia SLIGHT = 2-3 cells (100X) (0-2/hpf); Schistocytes SLIGHT = 2-5 cells (100X) (0-1/hpf); Target Cells MODERATE= 6-15 cells (100X) (0-1/hpf); Tear Drops SLIGHT = 2-5 cells (100X) (0-1/hpf)
[2021-10-01] MEDS ORDERED: Heparin 10,000 UNITS/ 10 ML VIAL ONE (11:06)
[2021-10-01] MEDS: Amiodarone 200 MG TAB PO SCH (12:13)
[2021-10-01] MEDS: Fludrocortisone Acetate 0.1 MG TAB PO SCH (12:14)
[2021-10-01] MEDS: Lidocaine 5% Patch TD SCH (12:14)
[2021-10-01] MEDS ORDERED: Midodrine HCl 5 MG TAB PO PRN (18:06)
[2021-10-01] MEDS: Sodium Chloride 0.9% 1,000 ML IV SCH (18:40)
[2021-10-01] MEDS: Aspirin 81 mg Enteric Coated Tablet PO SCH (21:22)
[2021-10-01] MEDS: Atorvastatin Calcium 40 MG TAB PO SCH (21:22)
[2021-10-01] MEDS: Transdermal Patch Removal TOP SCH (21:23)
[2021-10-02] MEDS: Fludrocortisone Acetate 0.1 MG TAB PO SCH (08:33)
[2021-10-02] MEDS: Apixaban 2.5 MG TAB PO SCH ×2 (08:33→20:21)
[2021-10-02] MEDS: Amiodarone 200 MG TAB PO SCH (08:33)
[2021-10-02] MEDS: Pantoprazole 40 MG VIAL IVP SCH ×2 (08:34→08:42)
[2021-10-02] MEDS: Senokot S 8.6-50 MG TAB PO SCH ×2 (08:34→20:11)
[2021-10-02] MEDS ORDERED: Albumin 25% 25 GM/100 ML BOT IVPB SCH (08:45)
[2021-10-02] MEDS: tiZANidine HCl 4 MG TAB PO PRN ×3 (10:21→20:20)
[2021-10-02] MEDS: Albumin 25% 25 GM/100 ML BOT IVPB SCH ×3 (10:21→21:41)
[2021-10-02] MEDS: Lidocaine 5% Patch TD SCH (10:36)
[2021-10-02 11:04] VITALS: BMI 27.7
[2021-10-02 12:15] LABS: A/G Ratio 0.8 (0.7-1.7); Albumin 2.7 g/dL (2.9-4.4); Alpha 1 0.4 g/dL (0.0-0.4); Alpha 2 1.2 g/dL (0.4-1.0); Beta 0.9 g/dL (0.7-1.3); Globulin, Total 3.4 g/dL (2.2-3.9); M-Spike Not Observed g/dL (Not Observed); Protein Electrophoresis Intrp Note: (.)
[2021-10-02] MEDS ORDERED: Iopamidol-370 76% 500 ML 1 ML ONE (13:43)
[2021-10-02] MEDS: Sodium Chloride 0.9% 1,000 ML IV SCH (14:46)
[2021-10-02] MEDS: HumaLOG 300 UNITS/3 ML VIAL SC PRN ×2 (17:19→20:20)
[2021-10-02] MEDS: Atorvastatin Calcium 40 MG TAB PO SCH (20:21)
[2021-10-02] MEDS: Aspirin 81 mg Enteric Coated Tablet PO SCH (20:21)
[2021-10-02] MEDS: Transdermal Patch Removal TOP SCH (20:36)
[2021-10-03] MEDS: Albumin 25% 25 GM/100 ML BOT IVPB SCH (03:56)
[2021-10-03 06:43] LABS: Anion Gap 19 mmol/L (10-20); BUN (Urea Nitrogen) 33 mg/dL (9.8-20.1); Calc. Creatinine Clearance 12 mL/min (70-130); Calcium 10.5 mg/dL (7.8-10.44); Carbon Dioxide 25 mmol/L (23-31); Chloride 98 mmol/L (98-107); Glucose 196 mg/dL (80-115); Potassium 3.9 mmol/L (3.5-5.1); Sodium 138 mmol/L (136-145)
[2021-10-03 06:49] LABS: #Basophils 0.1 thou/uL (0.0-0.2); #Eosinphils 0.1 thou/uL (0.0-0.7); #Lymphocytes 1.4 thou/uL (1.20-3.40); #Monocytes 1.1 thou/uL (0.11-0.59); #Neutrophils 5.4 thou/uL (1.40-6.50); %Basophils 0.8 % (0.0-1.0); %Eosinophils 1.2 % (0.0-10.0); %Lymphocytes 17.5 % (21.0-51.0); %Monocytes 13.8 % (0.0-10.0); %Neutrophils 66.6 % (42.0-75.0); Hemoglobin 6.7 g/dL (12.0-16.0); Mean Corpuscular HGB CONC 29.2 g/dL (32.0-36.0); Mean Corpuscular Volume 92.5 fL (78.0-98.0); Mean Platelet Volume 7.9 fL (7.4-10.4); Platelet Count 211 thou/uL (130-400); RBC Distribution Width 15.4 % (11.5-14.5); Red Blood Cell (RBC) Count 2.49 mill/uL (4.20-5.40); White Blood Cell (WBC) Count 8.1 thou/uL (4.8-10.8)
[2021-10-03] MEDS: Apixaban 2.5 MG TAB PO SCH ×2 (08:34→12:36)
[2021-10-03] MEDS: Lidocaine 5% Patch TD SCH (08:34)
[2021-10-03] MEDS: Senokot S 8.6-50 MG TAB PO SCH ×2 (08:35→20:37)
[2021-10-03] MEDS ORDERED: Heparin 10,000 UNITS/ 10 ML VIAL ONE (09:07)
[2021-10-03] MEDS: Sodium Chloride 0.9% 1,000 ML IV SCH (09:47)
[2021-10-03] MEDS: Fludrocortisone Acetate 0.1 MG TAB PO SCH (12:36)
[2021-10-03] MEDS: Pantoprazole 40 MG VIAL IVP SCH (12:36)
[2021-10-03] MEDS: Amiodarone 200 MG TAB PO SCH (12:36)
[2021-10-03] MEDS: tiZANidine HCl 4 MG TAB PO PRN ×2 (13:33→20:16)
[2021-10-03] MEDS: EPOETIN ALFA-EPBX (ESRD) 4,000 UNIT/ML VIAL SC SCH (13:33)
[2021-10-03 16:02] LABS: Hemoglobin 8.6 g/dL (12.0-16.0); Mean Corpuscular HGB CONC 30.7 g/dL (32.0-36.0); Mean Corpuscular Hemoglobin 29.5 pg (27.0-31.0); Mean Corpuscular Volume 95.9 fL (78.0-98.0); Platelet Count 202 thou/uL (130-400); RBC Distribution Width 14.9 % (11.5-14.5); White Blood Cell (WBC) Count 8.8 thou/uL (4.8-10.8)
[2021-10-03] MEDS: Acetaminophen 325 MG TAB PO PRN (16:23)
[2021-10-03] MEDS: Aspirin 81 mg Enteric Coated Tablet PO SCH (20:16)
[2021-10-03] MEDS: Atorvastatin Calcium 40 MG TAB PO SCH (20:16)
[2021-10-03] MEDS: Transdermal Patch Removal TOP SCH (20:37)
[2021-10-04] MEDS: Sodium Chloride 0.9% 1,000 ML IV SCH (05:33)
[2021-10-04 06:26] LABS: Anion Gap 19 mmol/L (10-20); BUN (Urea Nitrogen) 17 mg/dL (9.8-20.1); Calc. Creatinine Clearance 21 mL/min (70-130); Calcium 10.2 mg/dL (7.8-10.44); Carbon Dioxide 26 mmol/L (23-31); Chloride 98 mmol/L (98-107); Glucose 186 mg/dL (80-115); Sodium 139 mmol/L (136-145)
[2021-10-04 07:46] LABS: Mean Corpuscular HGB CONC 29.9 g/dL (32.0-36.0); Mean Corpuscular Hemoglobin 27.7 pg (27.0-31.0); Mean Corpuscular Volume 92.6 fL (78.0-98.0); Platelet Count 215 thou/uL (130-400); RBC Distribution Width 15.1 % (11.5-14.5); Red Blood Cell (RBC) Count 3.27 mill/uL (4.20-5.40); White Blood Cell (WBC) Count 7.2 thou/uL (4.8-10.8)
[2021-10-04 08:37] LABS: Band 5 % (5-11); Eosinophils 1 % (0-10); Hypochromia SLIGHT = 6-15 cells (100X) (0-5/hpf); Lymphocytes 20 % (21-51); MDiff Complete? YES; Monocytes 14 % (0-10); Neutrophil 60 % (42-75); Platelet Morphology Comment Appears Adequate; Polychromasia SLIGHT = 2-3 cells (100X) (0-2/hpf); Schistocytes SLIGHT = 2-5 cells (100X) (0-1/hpf)
[2021-10-04] MEDS: Lidocaine 5% Patch TD SCH (08:43)
[2021-10-04] MEDS: Senokot S 8.6-50 MG TAB PO SCH (08:43)
[2021-10-04] MEDS: Pantoprazole 40 MG VIAL IVP SCH (08:53)
[2021-10-04] MEDS: Apixaban 2.5 MG TAB PO SCH (08:53)
[2021-10-04] MEDS: Amiodarone 200 MG TAB PO SCH (08:53)
[2021-10-04] MEDS: Fludrocortisone Acetate 0.1 MG TAB PO SCH (08:53)
[2021-10-04] MEDS: tiZANidine HCl 4 MG TAB PO PRN (10:01)
[2021-10-04 11:53] VITALS: BP 96/58; TEMP 98.1
[2021-10-04] MEDS: HumaLOG 300 UNITS/3 ML VIAL SC PRN (12:29)
[2021-10-04 14:16] LABS: Albumin-Ur 18.4 % (.); Alpha 1 - Ur 7.4 % (.); Alpha 2 - Ur 10.9 % (.); Beta-Ur 34.6 % (.); Gamma-Ur 28.7 % (.); M-Spike,% Not Observed % (Not Observed); Protein, Urine 99.6 mg/dL (Not Estab.)
== END 2021-10-04 15:01 | disposition home or self-care (01) | DRG 545 ==
LOC: ERS 14:32 → ERHOLD 20:13 → IMCU/EMU 20:48 → 2NO 09-12 12:57 → SURG B 09-15 15:12 → IMCU/EMU 09-20 07:37 → T4-A 09-30 15:53
PROVIDERS: ADMIT Internal Medicine; ATTEND Internal Medicine
PROC: 5A1D70Z Performance of Urinary Filtration, Intermittent, Less than 6 Hours Per Day (ICD-10-PCS; principal; 2021-09-17)
PROC: 30233N1 Transfusion of Nonautologous Red Blood Cells into Peripheral Vein, Percutaneous Approach (ICD-10-PCS; 2021-10-03)
DX: E85.89 Other amyloidosis (principal); N18.6 End stage renal disease; G93.41 Metabolic encephalopathy; M46.26 Osteomyelitis of vertebra, lumbar region; M84.48XA Pathological fracture, other site, initial encounter for fracture; I13.2 Hypertensive heart and chronic kidney disease with heart failure and with stage 5 chronic kidney disease, or end stage renal disease; I50.32 Chronic diastolic (congestive) heart failure; Z94.0 Kidney transplant status; N39.0 Urinary tract infection, site not specified; Z16.24 Resistance to multiple antibiotics; I47.2 Ventricular tachycardia; Z20.822 Contact with and (suspected) exposure to COVID-19; R31.9 Hematuria, unspecified; M46.46 Discitis, unspecified, lumbar region; E66.9 Obesity, unspecified; E27.8 Other specified disorders of adrenal gland; E78.5 Hyperlipidemia, unspecified; I48.0 Paroxysmal atrial fibrillation; M48.061 Spinal stenosis, lumbar region without neurogenic claudication; I25.10 Atherosclerotic heart disease of native coronary artery without angina pectoris; D63.1 Anemia in chronic kidney disease; M79.89 Other specified soft tissue disorders; K80.20 Calculus of gallbladder without cholecystitis without obstruction; N83.291 Other ovarian cyst, right side; E11.22 Type 2 diabetes mellitus with diabetic chronic kidney disease; E83.39 Other disorders of phosphorus metabolism; I95.1 Orthostatic hypotension; Z79.01 Long term (current) use of anticoagulants; Z79.82 Long term (current) use of aspirin; Z79.4 Long term (current) use of insulin; Z79.899 Other long term (current) drug therapy; Z99.2 Dependence on renal dialysis; Z90.710 Acquired absence of both cervix and uterus; Z68.27 Body mass index [BMI] 27.0-27.9, adult; Z95.810 Presence of automatic (implantable) cardiac defibrillator
CPT/HCPCS: 36415; 36416; 36430; 70450; 71045; 72128; 72131; 72158; 74178; 75635; 80048; 80053; 80202; 81003; 81015; 82274; 82553; 82607; 82728; 82746; 82805; 83036; 83540; 83550; 83735; 83880; 84100; 84145; 84165; 84166; 84443; 84484; 85025; 85610; 85730; 86140; 86850; 86900; 86901; 87040; 87077; 87086; 87149; 87186; 87340; 90935; 93005; 96374; C9113; G0257; J0696; J1170; J1630; J1642; J1644; J1815; J1956; J2250; J2270; J2405; J2543; J3010; J3370; J3490; J7030; J7050; P9016; P9047; Q0162; Q5105; Q9967; U0002; U0003; U0005

== ENCOUNTER 2021-11-22 07:44 | Inpatient (IN) | payer MEDICARE, OTHER ==
[2021-11-22 09:19] LABS: #Basophils 0.1 thou/uL (0.0-0.2); #Eosinphils 0.1 thou/uL (0.0-0.7); #Lymphocytes 3.3 thou/uL (1.20-3.40); #Monocytes 1.5 thou/uL (0.11-0.59); #Neutrophils 12.1 thou/uL (1.40-6.50); %Basophils 0.6 % (0.0-1.0); %Eosinophils 0.6 % (0.0-10.0); %Lymphocytes 19.1 % (21.0-51.0); %Monocytes 8.9 % (0.0-10.0); %Neutrophils 70.8 % (42.0-75.0); Hemoglobin 9.5 g/dL (12.0-16.0); Mean Corpuscular HGB CONC 30.3 g/dL (32.0-36.0); Mean Corpuscular Hemoglobin 27.8 pg (27.0-31.0); Mean Corpuscular Volume 91.8 fL (78.0-98.0); Mean Platelet Volume 8.5 fL (7.4-10.4); Platelet Count 284 thou/uL (130-400); RBC Distribution Width 17.3 % (11.5-14.5); Red Blood Cell (RBC) Count 3.43 mill/uL (4.20-5.40); White Blood Cell (WBC) Count 17.1 thou/uL (4.8-10.8)
[2021-11-22 09:36] LABS: ALT (SGPT) 37 U/L (8-55); AST (SGOT) 58 U/L (5-34); Albumin 2.7 g/dL (3.4-4.8); Alkaline Phosphatase 673 U/L (40-110); Anion Gap 16 mmol/L (10-20); BUN (Urea Nitrogen) 28 mg/dL (9.8-20.1); Bilirubin, Total 0.7 mg/dL (0.2-1.2); Calc. Creatinine Clearance 0 mL/min (70-130); Calcium 9.9 mg/dL (7.8-10.44); Carbon Dioxide 26 mmol/L (23-31); Chloride 103 mmol/L (98-107); Globulin 4.3 g/dL (2.4-3.5); Glucose 138 mg/dL (80-115); Lipase 40 U/L (8-78); Potassium 3.7 mmol/L (3.5-5.1); Sodium 141 mmol/L (136-145)
[2021-11-22 13:19] LABS: Lactic Acid 2.4 mmol/L (0.5-2.2)
[2021-11-22] MEDS ORDERED: Cefepime 2 GM VIAL ONE (14:33)
[2021-11-22] MEDS ORDERED: Vancomycin 1 GM/200 ML BAG ONE (14:33)
[2021-11-22] MEDS ORDERED: Bisacodyl 10 MG SUPP PR PRN (14:51)
[2021-11-22] MEDS ORDERED: Senokot S 8.6-50 MG TAB PO PRN (14:51)
[2021-11-22] MEDS ORDERED: HYDROcodone/Acetaminophen 5/325 mg Tablet PO PRN (14:51)
[2021-11-22] MEDS ORDERED: Ondansetron PF 4 MG/2 ML Vial IVP PRN (14:51)
[2021-11-22] MEDS ORDERED: Vancomycin 1 GM in Premix Bag 1 BAG IVPB SCH (15:15)
[2021-11-22] MEDS ORDERED: Vancomycin HCl 1.25 GM in Sodium Chloride 0.9% 250 ML 250 ML IVPB SCH (15:15)
[2021-11-22] MEDS ORDERED: HOLD VANCOMYCIN FOR LEVEL >20 FS SCH (15:15)
[2021-11-22] MEDS ORDERED: Vancomycin HCl 750 MG in Sodium Chloride 0.9% 250 ML 250 ML IVPB SCH (15:15)
[2021-11-22] MEDS ORDERED: Vancomycin HCl 500 MG in Sodium Chloride 0.9% 100 ML IVPB SCH ×2 (15:15)
[2021-11-22 16:45] LABS: SARS-CoV-2 NAA Rapid Test Not Detected (NotDetected)
[2021-11-22] MEDS: Sevelamer Carbonate 800 MG TAB PO SCH (18:33)
[2021-11-22] MEDS: Apixaban 5 MG TAB PO SCH (22:04)
[2021-11-22] MEDS: Aspirin 81 mg Enteric Coated Tablet PO SCH (22:04)
[2021-11-22] MEDS: Atorvastatin Calcium 40 MG TAB PO SCH (22:04)
[2021-11-22] MEDS: Timolol 0.5% Ophth Soln 5 ml Bottle EA EYE SCH (23:33)
[2021-11-23] MEDS: Midodrine HCl 5 MG TAB PO PRN (04:15)
[2021-11-23] MEDS ORDERED: Dextrose 50% Abboject 50 ML SYRINGE SLOW IVP PRN (04:30)
[2021-11-23] MEDS ORDERED: Dextrose 5% in Water 1,000 ML IV PRN (04:30)
[2021-11-23] MEDS: HumaLOG 300 UNITS/3 ML VIAL SC PRN (05:14)
[2021-11-23 07:32] LABS: #Basophils 0.1 thou/uL (0.0-0.2); #Eosinphils 0.2 thou/uL (0.0-0.7); #Monocytes 1.5 thou/uL (0.11-0.59); #Neutrophils 7.4 thou/uL (1.40-6.50); %Basophils 0.7 % (0.0-1.0); %Eosinophils 1.7 % (0.0-10.0); %Lymphocytes 24.4 % (21.0-51.0); %Monocytes 12.4 % (0.0-10.0); %Neutrophils 60.9 % (42.0-75.0); Hemoglobin 8.3 g/dL (12.0-16.0); Mean Corpuscular HGB CONC 31.3 g/dL (32.0-36.0); Mean Corpuscular Hemoglobin 28.2 pg (27.0-31.0); Mean Corpuscular Volume 90.1 fL (78.0-98.0); Mean Platelet Volume 8.5 fL (7.4-10.4); Platelet Count 233 thou/uL (130-400); RBC Distribution Width 17.3 % (11.5-14.5); Red Blood Cell (RBC) Count 2.96 mill/uL (4.20-5.40); White Blood Cell (WBC) Count 12.1 thou/uL (4.8-10.8)
[2021-11-23 07:44] LABS: Anion Gap 18 mmol/L (10-20); BUN (Urea Nitrogen) 43 mg/dL (9.8-20.1); Calc. Creatinine Clearance 16 mL/min (70-130); Calcium 9.5 mg/dL (7.8-10.44); Carbon Dioxide 23 mmol/L (23-31); Chloride 100 mmol/L (98-107); Glucose 256 mg/dL (80-115); Potassium 4.8 mmol/L (3.5-5.1); Sodium 136 mmol/L (136-145)
[2021-11-23] MEDS ORDERED: Heparin 10,000 UNITS/ 10 ML VIAL ONE (08:24)
[2021-11-23] MEDS: Amiodarone 200 MG TAB PO SCH (10:32)
[2021-11-23] MEDS: Sevelamer Carbonate 800 MG TAB PO SCH ×3 (10:33→18:51)
[2021-11-23] MEDS: Apixaban 5 MG TAB PO SCH ×2 (10:34→21:03)
[2021-11-23] MEDS: Timolol 0.5% Ophth Soln 5 ml Bottle EA EYE SCH ×2 (10:38→21:06)
[2021-11-23 14:32] LABS: Vancomycin, Random 14.4 ug/mL (See Comment)
[2021-11-23 14:52] LABS: HBSAg Index 0.73 S/CO (0-0.99); Hep B Surf Ag Non-Reactive S/CO (NonReactive)
[2021-11-23] MEDS: Sucralfate 1 GM TAB PO SCH ×2 (14:59→21:03)
[2021-11-23] MEDS: Midodrine HCl 5 MG TAB PO SCH ×2 (14:59→21:04)
[2021-11-23] MEDS: Vancomycin HCl 750 MG in Sodium Chloride 0.9% 250 ML 250 ML IVPB SCH ×2 (18:35→20:58)
[2021-11-23] MEDS: EPOETIN ALFA-EPBX (ESRD) 4,000 UNIT/ML VIAL SC SCH ×2 (18:36→20:58)
[2021-11-23] MEDS: Ascorbic Acid 500 mg Chewable Tablet PO SCH (21:03)
[2021-11-23] MEDS: Aspirin 81 mg Enteric Coated Tablet PO SCH (21:04)
[2021-11-23] MEDS: Atorvastatin Calcium 40 MG TAB PO SCH (21:04)
[2021-11-23] MEDS: Brimonidine Tartrate 0.2% Ophth Soln 5 ml Bottle EA EYE SCH (21:05)
[2021-11-23] MEDS: Latanoprost 0.005% Ophth Soln 2.5 ml Bottle EA EYE SCH (21:07)
[2021-11-23] MEDS: Pantoprazole 40 MG GRANULES PACKET PO SCH (22:06)
[2021-11-23] MEDS: Fludrocortisone Acetate 0.1 MG TAB PO SCH (22:07)
[2021-11-23] MEDS: Lantus 1000 UNITS/10 ML VIAL SC SCH (22:07)
[2021-11-23] MEDS: Cefepime 0.5 GM, Admixture Fee 1 EACH in Sodium Chloride 0.9% 100 ML IVPB SCH (23:54)
[2021-11-24] MEDS: Levothyroxine Sodium 75 MCG TAB PO SCH (05:10)
[2021-11-24] MEDS: Midodrine HCl 5 MG TAB PO PRN (05:10)
[2021-11-24] MEDS ORDERED: Sodium Chloride 0.9% 500 ML IV SCH ×2 (06:00→07:30)
[2021-11-24 08:57] LABS: #Basophils 0.2 thou/uL (0.0-0.2); #Eosinphils 0.2 thou/uL (0.0-0.7); #Lymphocytes 2.7 thou/uL (1.20-3.40); #Monocytes 1.4 thou/uL (0.11-0.59); #Neutrophils 8.3 thou/uL (1.40-6.50); %Basophils 1.3 % (0.0-1.0); %Eosinophils 1.5 % (0.0-10.0); %Lymphocytes 21.4 % (21.0-51.0); %Monocytes 11.1 % (0.0-10.0); %Neutrophils 64.7 % (42.0-75.0); Hemoglobin 7.9 g/dL (12.0-16.0); Mean Corpuscular HGB CONC 29.7 g/dL (32.0-36.0); Mean Corpuscular Hemoglobin 27.2 pg (27.0-31.0); Mean Corpuscular Volume 91.6 fL (78.0-98.0); Mean Platelet Volume 8.4 fL (7.4-10.4); Platelet Count 249 thou/uL (130-400); Red Blood Cell (RBC) Count 2.91 mill/uL (4.20-5.40); White Blood Cell (WBC) Count 12.8 thou/uL (4.8-10.8)
[2021-11-24 09:13] LABS: Phosphorus 2.6 mg/dL (2.3-4.7)
[2021-11-24 09:14] LABS: Anion Gap 13 mmol/L (10-20); BUN (Urea Nitrogen) 19 mg/dL (9.8-20.1); Calc. Creatinine Clearance 30 mL/min (70-130); Calcium 8.8 mg/dL (7.8-10.44); Carbon Dioxide 26 mmol/L (23-31); Chloride 99 mmol/L (98-107); Glucose 197 mg/dL (80-115); Potassium 3.9 mmol/L (3.5-5.1); Sodium 134 mmol/L (136-145)
[2021-11-24 09:17] LABS: Helmet Cells SLIGHT = 2-5 cells (100X) (0-1/hpf); Hypochromia SLIGHT = 6-15 cells (100X) (0-5/hpf); MDiff Complete? YES; Platelet Morphology Comment Appears Adequate; Polychromasia MODERATE = 3-4 cells (100X) (0-2/hpf); Schistocytes SLIGHT = 2-5 cells (100X) (0-1/hpf); Target Cells SLIGHT = 2-5 cells (100X) (0-1/hpf); Tear Drops SLIGHT = 2-5 cells (100X) (0-1/hpf)
[2021-11-24] MEDS: Ascorbic Acid 500 mg Chewable Tablet PO SCH ×2 (09:27→21:19)
[2021-11-24] MEDS: Midodrine HCl 5 MG TAB PO SCH ×3 (09:27→21:18)
[2021-11-24] MEDS: Amiodarone 200 MG TAB PO SCH (09:27)
[2021-11-24] MEDS: Cholecalciferol 1,000 UNITS (25 MCG) TAB PO SCH (09:27)
[2021-11-24] MEDS: Zinc Sulfate 220 MG CAP PO SCH (09:28)
[2021-11-24] MEDS: Apixaban 5 MG TAB PO SCH ×2 (09:28→21:19)
[2021-11-24] MEDS: Sevelamer Carbonate 800 MG TAB PO SCH ×3 (09:28→16:15)
[2021-11-24] MEDS: Multivitamin W/ Minerals 1 TAB PO SCH (09:28)
[2021-11-24] MEDS: Polyethylene Glycol 3350 17 GM Packet PO SCH (09:29)
[2021-11-24] MEDS: Sucralfate 1 GM TAB PO SCH ×3 (09:29→21:19)
[2021-11-24] MEDS: predniSONE 5 MG TAB PO SCH (09:29)
[2021-11-24] MEDS: Gabapentin 400 MG CAP PO SCH (09:29)
[2021-11-24] MEDS: Fludrocortisone Acetate 0.1 MG TAB PO SCH ×2 (09:30→21:19)
[2021-11-24] MEDS ORDERED: Cosyntropin 250 MCG VIAL SLOW IVP SCH (09:45)
[2021-11-24] MEDS: Pantoprazole 40 MG GRANULES PACKET PO SCH ×2 (09:51→21:20)
[2021-11-24] MEDS: Timolol 0.5% Ophth Soln 5 ml Bottle EA EYE SCH ×2 (09:51→21:20)
[2021-11-24] MEDS: Brimonidine Tartrate 0.2% Ophth Soln 5 ml Bottle EA EYE SCH ×2 (09:51→21:19)
[2021-11-24] MEDS: HumaLOG 300 UNITS/3 ML VIAL SC PRN ×2 (14:50→21:21)
[2021-11-24] MEDS: Cefepime 0.5 GM, Admixture Fee 1 EACH in Sodium Chloride 0.9% 100 ML IVPB SCH (16:19)
[2021-11-24] MEDS: Aspirin 81 mg Enteric Coated Tablet PO SCH (21:18)
[2021-11-24] MEDS: Atorvastatin Calcium 40 MG TAB PO SCH (21:19)
[2021-11-24] MEDS: Latanoprost 0.005% Ophth Soln 2.5 ml Bottle EA EYE SCH (21:20)
[2021-11-24] MEDS: Lantus 1000 UNITS/10 ML VIAL SC SCH (21:21)
[2021-11-25] MEDS: HumaLOG 300 UNITS/3 ML VIAL SC PRN ×4 (05:52→21:07)
[2021-11-25] MEDS: Levothyroxine Sodium 75 MCG TAB PO SCH (05:52)
[2021-11-25] MEDS ORDERED: Artificial Tear Sol 15 ML BOT EA EYE PRN (07:43)
[2021-11-25] MEDS ORDERED: Loperamide HCl 2 MG CAP PO PRN (07:43)
[2021-11-25] MEDS ORDERED: GUAIFENESIN SF SOLN 200 MG/10 ML UDCUP PO PRN (07:43)
[2021-11-25] MEDS ORDERED: Calcium Carbonate 500 MG ChewTAB PO PRN (07:43)
[2021-11-25] MEDS ORDERED: Cepastat Lozenges 1 LOZ PO PRN (07:43)
[2021-11-25] MEDS ORDERED: Hydrocerin (Eucerin) Cream 120 gm Jar TOP PRN (07:43)
[2021-11-25 07:47] LABS: #Basophils 0.1 thou/uL (0.0-0.2); #Monocytes 0.6 thou/uL (0.11-0.59); #Neutrophils 5.2 thou/uL (1.40-6.50); %Basophils 0.9 % (0.0-1.0); %Eosinophils 0.2 % (0.0-10.0); %Lymphocytes 25.4 % (21.0-51.0); %Monocytes 8.1 % (0.0-10.0); %Neutrophils 65.5 % (42.0-75.0); Hemoglobin 8.3 g/dL (12.0-16.0); Mean Corpuscular Hemoglobin 26.6 pg (27.0-31.0); Mean Corpuscular Volume 91.8 fL (78.0-98.0); Mean Platelet Volume 8.4 fL (7.4-10.4); Platelet Count 299 thou/uL (130-400); Red Blood Cell (RBC) Count 3.13 mill/uL (4.20-5.40); White Blood Cell (WBC) Count 7.9 thou/uL (4.8-10.8)
[2021-11-25 08:06] LABS: Anion Gap 17 mmol/L (10-20); BUN (Urea Nitrogen) 35 mg/dL (9.8-20.1); Calc. Creatinine Clearance 19 mL/min (70-130); Calcium 9.8 mg/dL (7.8-10.44); Carbon Dioxide 25 mmol/L (23-31); Chloride 99 mmol/L (98-107); Glucose 311 mg/dL (80-115); Potassium 4.1 mmol/L (3.5-5.1); Sodium 137 mmol/L (136-145)
[2021-11-25] MEDS: Cholecalciferol 1,000 UNITS (25 MCG) TAB PO SCH (09:44)
[2021-11-25] MEDS: Midodrine HCl 5 MG TAB PO SCH ×3 (09:45→20:53)
[2021-11-25] MEDS: Zinc Sulfate 220 MG CAP PO SCH (09:45)
[2021-11-25] MEDS: Ascorbic Acid 500 mg Chewable Tablet PO SCH ×2 (09:45→20:53)
[2021-11-25] MEDS: predniSONE 5 MG TAB PO SCH (09:45)
[2021-11-25] MEDS: Amiodarone 200 MG TAB PO SCH (09:45)
[2021-11-25] MEDS: Apixaban 5 MG TAB PO SCH ×2 (09:46→20:51)
[2021-11-25] MEDS: Gabapentin 400 MG CAP PO SCH (09:46)
[2021-11-25] MEDS: Sucralfate 1 GM TAB PO SCH ×3 (09:46→20:51)
[2021-11-25] MEDS: Multivitamin W/ Minerals 1 TAB PO SCH (09:47)
[2021-11-25] MEDS: Sevelamer Carbonate 800 MG TAB PO SCH ×3 (09:47→16:24)
[2021-11-25] MEDS: Polyethylene Glycol 3350 17 GM Packet PO SCH (09:47)
[2021-11-25] MEDS: Fludrocortisone Acetate 0.1 MG TAB PO SCH ×2 (09:48→20:51)
[2021-11-25] MEDS: Timolol 0.5% Ophth Soln 5 ml Bottle EA EYE SCH ×2 (10:16→21:05)
[2021-11-25] MEDS: Lansoprazole 3 MG/ML ORAL SUSPENSION PO SCH ×2 (10:16→20:55)
[2021-11-25] MEDS: Brimonidine Tartrate 0.2% Ophth Soln 5 ml Bottle EA EYE SCH ×2 (10:17→21:01)
[2021-11-25] MEDS: Cefepime 0.5 GM, Admixture Fee 1 EACH in Sodium Chloride 0.9% 100 ML IVPB SCH (16:23)
[2021-11-25] MEDS: Atorvastatin Calcium 40 MG TAB PO SCH (20:53)
[2021-11-25] MEDS: Aspirin Chewable 81 MG TAB PO SCH (20:54)
[2021-11-25] MEDS: Loratadine 10 MG TAB PO PRN (20:54)
[2021-11-25] MEDS ORDERED: Lantus 1000 UNITS/10 ML VIAL SC SCH (21:00)
[2021-11-25] MEDS: Latanoprost 0.005% Ophth Soln 2.5 ml Bottle EA EYE SCH (21:02)
[2021-11-26] MEDS: HumaLOG 300 UNITS/3 ML VIAL SC PRN (04:05)
[2021-11-26] MEDS: Levothyroxine Sodium 75 MCG TAB PO SCH (05:00)
[2021-11-26] MEDS: Polyethylene Glycol 3350 17 GM Packet PO SCH (08:45)
[2021-11-26] MEDS: Gabapentin 400 MG CAP PO SCH (08:46)
[2021-11-26] MEDS: Sevelamer Carbonate 800 MG TAB PO SCH ×3 (08:47→17:21)
[2021-11-26] MEDS: Cholecalciferol 1,000 UNITS (25 MCG) TAB PO SCH (08:47)
[2021-11-26] MEDS: predniSONE 5 MG TAB PO SCH (08:48)
[2021-11-26] MEDS: Sucralfate 1 GM TAB PO SCH ×3 (08:48→21:24)
[2021-11-26] MEDS: Amiodarone 200 MG TAB PO SCH (08:48)
[2021-11-26] MEDS: Apixaban 5 MG TAB PO SCH ×2 (08:48→21:23)
[2021-11-26] MEDS: Midodrine HCl 5 MG TAB PO SCH ×3 (08:48→21:22)
[2021-11-26] MEDS: Zinc Sulfate 220 MG CAP PO SCH (08:49)
[2021-11-26] MEDS: Ascorbic Acid 500 mg Chewable Tablet PO SCH ×2 (08:49→21:25)
[2021-11-26] MEDS: Multivitamin W/ Minerals 1 TAB PO SCH (08:49)
[2021-11-26] MEDS: Lansoprazole 3 MG/ML ORAL SUSPENSION PO SCH ×2 (08:50→21:21)
[2021-11-26] MEDS: Brimonidine Tartrate 0.2% Ophth Soln 5 ml Bottle EA EYE SCH ×2 (08:52→21:24)
[2021-11-26] MEDS: Fludrocortisone Acetate 0.1 MG TAB PO SCH ×2 (08:52→21:25)
[2021-11-26] MEDS ORDERED: Heparin 10,000 UNITS/ 10 ML VIAL ONE (09:02)
[2021-11-26] MEDS: Timolol 0.5% Ophth Soln 5 ml Bottle EA EYE SCH ×3 (11:03→21:30)
[2021-11-26 12:12] LABS: #Basophils 0.1 thou/uL (0.0-0.2); #Eosinphils 0.2 thou/uL (0.0-0.7); #Lymphocytes 1.9 thou/uL (1.20-3.40); #Neutrophils 8.2 thou/uL (1.40-6.50); %Basophils 0.6 % (0.0-1.0); %Lymphocytes 16.5 % (21.0-51.0); %Monocytes 8.4 % (0.0-10.0); %Neutrophils 72.5 % (42.0-75.0); Hemoglobin 7.5 g/dL (12.0-16.0); Mean Corpuscular HGB CONC 30.5 g/dL (32.0-36.0); Mean Corpuscular Hemoglobin 27.3 pg (27.0-31.0); Mean Corpuscular Volume 89.6 fL (78.0-98.0); Mean Platelet Volume 8.7 fL (7.4-10.4); Platelet Count 281 thou/uL (130-400); RBC Distribution Width 17.2 % (11.5-14.5); Red Blood Cell (RBC) Count 2.75 mill/uL (4.20-5.40); White Blood Cell (WBC) Count 11.3 thou/uL (4.8-10.8)
[2021-11-26 12:37] LABS: Vancomycin, Random 6.5 ug/mL (See Comment)
[2021-11-26 12:46] LABS: Globulin 3.8 g/dL (2.4-3.5)
[2021-11-26 13:47] LABS: Albumin 2.3 g/dL (3.4-4.8)
[2021-11-26 13:48] LABS: Chloride 97 mmol/L (98-107)
[2021-11-26 13:49] LABS: Sodium 139 mmol/L (136-145)
[2021-11-26 13:50] LABS: Glucose 90 mg/dL (80-115); Protein, Total 6.2 g/dL (5.8-8.1)
[2021-11-26 13:51] LABS: Anion Gap 13 mmol/L (10-20); Carbon Dioxide 31 mmol/L (23-31)
[2021-11-26 13:52] LABS: Bilirubin, Total 0.4 mg/dL (0.2-1.2)
[2021-11-26 13:53] LABS: Alkaline Phosphatase 457 U/L (40-110)
[2021-11-26 13:54] LABS: BUN (Urea Nitrogen) 5 mg/dL (9.8-20.1)
[2021-11-26 13:55] LABS: AST (SGOT) 18 U/L (5-34)
[2021-11-26 13:56] LABS: ALT (SGPT) 18 U/L (8-55)
[2021-11-26 14:04] LABS: Calc. Creatinine Clearance 79 mL/min (70-130); Calcium 8.1 mg/dL (7.8-10.44); Potassium 2.1 mmol/L (3.5-5.1)
[2021-11-26] MEDS ORDERED: Potassium Chloride 20 MEQ TAB PO SCH (14:15)
[2021-11-26] MEDS ORDERED: Vancomycin 1 GM in Premix Bag 1 BAG IVPB SCH (15:00)
[2021-11-26] MEDS: Cefepime 0.5 GM, Admixture Fee 1 EACH in Sodium Chloride 0.9% 100 ML IVPB SCH (15:55)
[2021-11-26] MEDS: Aspirin Chewable 81 MG TAB PO SCH (21:23)
[2021-11-26] MEDS: Atorvastatin Calcium 40 MG TAB PO SCH (21:23)
[2021-11-26] MEDS: Latanoprost 0.005% Ophth Soln 2.5 ml Bottle EA EYE SCH (21:24)
[2021-11-26] MEDS: Lantus 1000 UNITS/10 ML VIAL SC SCH (21:35)
[2021-11-27 02:04] LABS: Magnesium 2.1 mg/dL (1.6-2.6); Potassium 3.5 mmol/L (3.5-5.1)
[2021-11-27] MEDS: Levothyroxine Sodium 75 MCG TAB PO SCH (05:50)
[2021-11-27] MEDS: Cholecalciferol 1,000 UNITS (25 MCG) TAB PO SCH (08:38)
[2021-11-27] MEDS: predniSONE 5 MG TAB PO SCH (08:38)
[2021-11-27] MEDS: Megestrol Acetate 800 MG/20 ML UDCUP PO SCH (08:38)
[2021-11-27] MEDS: Multivitamin W/ Minerals 1 TAB PO SCH (08:38)
[2021-11-27] MEDS: Midodrine HCl 5 MG TAB PO SCH ×3 (08:38→20:34)
[2021-11-27] MEDS: Gabapentin 400 MG CAP PO SCH (08:39)
[2021-11-27] MEDS: Apixaban 5 MG TAB PO SCH ×2 (08:39→20:35)
[2021-11-27] MEDS: Ascorbic Acid 500 mg Chewable Tablet PO SCH ×2 (08:39→20:35)
[2021-11-27] MEDS: Sevelamer Carbonate 800 MG TAB PO SCH ×3 (08:39→15:58)
[2021-11-27] MEDS: Sucralfate 1 GM TAB PO SCH ×3 (08:39→20:52)
[2021-11-27] MEDS: Fludrocortisone Acetate 0.1 MG TAB PO SCH ×2 (08:39→20:34)
[2021-11-27] MEDS: Amiodarone 200 MG TAB PO SCH (08:39)
[2021-11-27] MEDS: Brimonidine Tartrate 0.2% Ophth Soln 5 ml Bottle EA EYE SCH ×2 (08:39→20:33)
[2021-11-27] MEDS: Zinc Sulfate 220 MG CAP PO SCH (08:39)
[2021-11-27] MEDS: Polyethylene Glycol 3350 17 GM Packet PO SCH (08:40)
[2021-11-27] MEDS: Timolol 0.5% Ophth Soln 5 ml Bottle EA EYE SCH ×2 (08:40→20:33)
[2021-11-27] MEDS: Lansoprazole 3 MG/ML ORAL SUSPENSION PO SCH ×2 (13:51→20:32)
[2021-11-27] MEDS: Cefepime 0.5 GM, Admixture Fee 1 EACH in Sodium Chloride 0.9% 100 ML IVPB SCH (15:59)
[2021-11-27] MEDS: HumaLOG 300 UNITS/3 ML VIAL SC PRN ×2 (18:26→20:31)
[2021-11-27] MEDS: Latanoprost 0.005% Ophth Soln 2.5 ml Bottle EA EYE SCH (20:33)
[2021-11-27] MEDS: Lantus 1000 UNITS/10 ML VIAL SC SCH (20:34)
[2021-11-27] MEDS: Atorvastatin Calcium 40 MG TAB PO SCH (20:35)
[2021-11-27] MEDS: Aspirin Chewable 81 MG TAB PO SCH (20:35)
[2021-11-28] MEDS: Acetaminophen 325 MG TAB PO PRN (05:38)
[2021-11-28] MEDS: HumaLOG 300 UNITS/3 ML VIAL SC PRN ×3 (05:39→21:01)
[2021-11-28] MEDS: Levothyroxine Sodium 75 MCG TAB PO SCH (05:39)
[2021-11-28] MEDS: Timolol 0.5% Ophth Soln 5 ml Bottle EA EYE SCH ×2 (07:45→21:03)
[2021-11-28] MEDS: Midodrine HCl 5 MG TAB PO SCH ×3 (07:46→20:55)
[2021-11-28] MEDS: Brimonidine Tartrate 0.2% Ophth Soln 5 ml Bottle EA EYE SCH ×2 (07:46→21:02)
[2021-11-28] MEDS: Zinc Sulfate 220 MG CAP PO SCH (07:47)
[2021-11-28] MEDS: Gabapentin 400 MG CAP PO SCH (07:47)
[2021-11-28] MEDS: Sucralfate 1 GM TAB PO SCH ×3 (07:47→20:53)
[2021-11-28] MEDS: Fludrocortisone Acetate 0.1 MG TAB PO SCH ×2 (07:47→20:56)
[2021-11-28] MEDS: Sevelamer Carbonate 800 MG TAB PO SCH ×3 (07:47→17:14)
[2021-11-28] MEDS: Apixaban 5 MG TAB PO SCH ×2 (07:47→20:55)
[2021-11-28] MEDS: Ascorbic Acid 500 mg Chewable Tablet PO SCH ×2 (07:47→20:56)
[2021-11-28] MEDS: Multivitamin W/ Minerals 1 TAB PO SCH (07:48)
[2021-11-28] MEDS: Amiodarone 200 MG TAB PO SCH (07:48)
[2021-11-28] MEDS: predniSONE 5 MG TAB PO SCH (07:48)
[2021-11-28] MEDS: Cholecalciferol 1,000 UNITS (25 MCG) TAB PO SCH (07:48)
[2021-11-28] MEDS: Polyethylene Glycol 3350 17 GM Packet PO SCH (07:48)
[2021-11-28] MEDS: Megestrol Acetate 800 MG/20 ML UDCUP PO SCH (08:41)
[2021-11-28] MEDS: Lansoprazole 3 MG/ML ORAL SUSPENSION PO SCH ×2 (08:45→20:58)
[2021-11-28] MEDS ORDERED: Heparin 10,000 UNITS/ 10 ML VIAL ONE (08:59)
[2021-11-28 10:50] LABS: Vancomycin, Random 17.7 ug/mL (See Comment)
[2021-11-28 10:55] LABS: Anion Gap 11 mmol/L (10-20); BUN (Urea Nitrogen) 28 mg/dL (9.8-20.1); Calc. Creatinine Clearance 24 mL/min (70-130); Calcium 8.7 mg/dL (7.8-10.44); Carbon Dioxide 31 mmol/L (23-31); Chloride 99 mmol/L (98-107); Glucose 231 mg/dL (80-115); Potassium 3.4 mmol/L (3.5-5.1); Sodium 138 mmol/L (136-145)
[2021-11-28] MEDS ORDERED: Vancomycin HCl 500 MG in Sodium Chloride 0.9% 100 ML IVPB SCH (12:00)
[2021-11-28 13:28] VITALS: BMI 31.2
[2021-11-28] MEDS: Cefepime 0.5 GM, Admixture Fee 1 EACH in Sodium Chloride 0.9% 100 ML IVPB SCH (15:29)
[2021-11-28] MEDS: Aspirin Chewable 81 MG TAB PO SCH (20:54)
[2021-11-28] MEDS: Atorvastatin Calcium 40 MG TAB PO SCH (20:54)
[2021-11-28] MEDS: Loratadine 10 MG TAB PO PRN (20:55)
[2021-11-28] MEDS: Lantus 1000 UNITS/10 ML VIAL SC SCH (21:00)
[2021-11-28] MEDS: Latanoprost 0.005% Ophth Soln 2.5 ml Bottle EA EYE SCH (21:02)
[2021-11-29] MEDS: Levothyroxine Sodium 75 MCG TAB PO SCH (06:05)
[2021-11-29 07:37] LABS: SARS-CoV-2 PCR by NAA Not Detected (NotDetected)
[2021-11-29] MEDS: Lansoprazole 3 MG/ML ORAL SUSPENSION PO SCH ×2 (08:37→20:34)
[2021-11-29] MEDS: Megestrol Acetate 800 MG/20 ML UDCUP PO SCH (08:37)
[2021-11-29] MEDS: Brimonidine Tartrate 0.2% Ophth Soln 5 ml Bottle EA EYE SCH ×2 (08:37→20:48)
[2021-11-29] MEDS: Timolol 0.5% Ophth Soln 5 ml Bottle EA EYE SCH ×2 (08:37→20:50)
[2021-11-29] MEDS: Amiodarone 200 MG TAB PO SCH (08:38)
[2021-11-29] MEDS: Cholecalciferol 1,000 UNITS (25 MCG) TAB PO SCH (08:38)
[2021-11-29] MEDS: Multivitamin W/ Minerals 1 TAB PO SCH (08:38)
[2021-11-29] MEDS: Apixaban 5 MG TAB PO SCH ×2 (08:38→20:49)
[2021-11-29] MEDS: Sevelamer Carbonate 800 MG TAB PO SCH ×3 (08:38→15:55)
[2021-11-29] MEDS: predniSONE 5 MG TAB PO SCH (08:38)
[2021-11-29] MEDS: Fludrocortisone Acetate 0.1 MG TAB PO SCH ×2 (08:38→20:49)
[2021-11-29] MEDS: Gabapentin 400 MG CAP PO SCH (08:38)
[2021-11-29] MEDS: Midodrine HCl 5 MG TAB PO SCH ×3 (08:39→20:50)
[2021-11-29] MEDS: Zinc Sulfate 220 MG CAP PO SCH (08:39)
[2021-11-29] MEDS: Polyethylene Glycol 3350 17 GM Packet PO SCH (08:39)
[2021-11-29] MEDS: Ascorbic Acid 500 mg Chewable Tablet PO SCH ×2 (08:39→20:49)
[2021-11-29] MEDS: Sucralfate 1 GM TAB PO SCH ×3 (08:39→20:50)
[2021-11-29] MEDS: Cefepime 0.5 GM, Admixture Fee 1 EACH in Sodium Chloride 0.9% 100 ML IVPB SCH (15:55)
[2021-11-29] MEDS: Lantus 1000 UNITS/10 ML VIAL SC SCH (20:48)
[2021-11-29] MEDS: Latanoprost 0.005% Ophth Soln 2.5 ml Bottle EA EYE SCH (20:48)
[2021-11-29] MEDS: Atorvastatin Calcium 40 MG TAB PO SCH (20:49)
[2021-11-29] MEDS: Aspirin Chewable 81 MG TAB PO SCH (20:49)
[2021-11-29] MEDS: Acetaminophen 325 MG TAB PO PRN (20:50)
[2021-11-30] MEDS: Levothyroxine Sodium 75 MCG TAB PO SCH (08:08)
[2021-11-30] MEDS: Sevelamer Carbonate 800 MG TAB PO SCH ×3 (08:12→16:38)
[2021-11-30] MEDS: Midodrine HCl 5 MG TAB PO SCH ×3 (10:12→20:04)
[2021-11-30] MEDS: Sucralfate 1 GM TAB PO SCH ×3 (10:12→20:05)
[2021-11-30] MEDS ORDERED: Heparin 10,000 UNITS/ 10 ML VIAL ONE (10:53)
[2021-11-30 11:03] LABS: #Basophils 0.1 thou/uL (0.0-0.2); #Eosinphils 0.2 thou/uL (0.0-0.7); #Lymphocytes 3.5 thou/uL (1.20-3.40); #Monocytes 1.1 thou/uL (0.11-0.59); #Neutrophils 5.2 thou/uL (1.40-6.50); %Basophils 0.9 % (0.0-1.0); %Eosinophils 2.1 % (0.0-10.0); %Lymphocytes 34.5 % (21.0-51.0); %Monocytes 11.2 % (0.0-10.0); %Neutrophils 51.4 % (42.0-75.0); Hemoglobin 7.2 g/dL (12.0-16.0); Mean Corpuscular HGB CONC 30.8 g/dL (32.0-36.0); Mean Corpuscular Hemoglobin 27.6 pg (27.0-31.0); Mean Corpuscular Volume 89.6 fL (78.0-98.0); Mean Platelet Volume 8.9 fL (7.4-10.4); Platelet Count 276 thou/uL (130-400); RBC Distribution Width 17.6 % (11.5-14.5); White Blood Cell (WBC) Count 10.1 thou/uL (4.8-10.8)
[2021-11-30 11:10] LABS: Vancomycin, Random 21.7 ug/mL (See Comment)
[2021-11-30 11:12] LABS: Anion Gap 15 mmol/L (10-20); BUN (Urea Nitrogen) 31 mg/dL (9.8-20.1); Calc. Creatinine Clearance 20 mL/min (70-130); Calcium 9.4 mg/dL (7.8-10.44); Carbon Dioxide 29 mmol/L (23-31); Chloride 100 mmol/L (98-107); Glucose 110 mg/dL (80-115); Potassium 3.7 mmol/L (3.5-5.1); Sodium 140 mmol/L (136-145)
[2021-11-30] MEDS: Fludrocortisone Acetate 0.1 MG TAB PO SCH ×2 (12:08→20:09)
[2021-11-30] MEDS: Apixaban 5 MG TAB PO SCH ×2 (12:08→20:04)
[2021-11-30] MEDS: Ascorbic Acid 500 mg Chewable Tablet PO SCH ×2 (12:08→20:05)
[2021-11-30] MEDS: Brimonidine Tartrate 0.2% Ophth Soln 5 ml Bottle EA EYE SCH ×2 (12:08→20:05)
[2021-11-30] MEDS: Lansoprazole 3 MG/ML ORAL SUSPENSION PO SCH ×2 (12:08→20:16)
[2021-11-30] MEDS: Polyethylene Glycol 3350 17 GM Packet PO SCH (12:08)
[2021-11-30] MEDS: Timolol 0.5% Ophth Soln 5 ml Bottle EA EYE SCH ×2 (12:09→20:08)
[2021-11-30] MEDS: Megestrol Acetate 800 MG/20 ML UDCUP PO SCH (14:17)
[2021-11-30] MEDS: Gabapentin 400 MG CAP PO SCH (14:17)
[2021-11-30] MEDS: Zinc Sulfate 220 MG CAP PO SCH (14:18)
[2021-11-30] MEDS: predniSONE 5 MG TAB PO SCH (14:18)
[2021-11-30] MEDS: Amiodarone 200 MG TAB PO SCH (14:18)
[2021-11-30] MEDS: Cholecalciferol 1,000 UNITS (25 MCG) TAB PO SCH (14:18)
[2021-11-30] MEDS: Multivitamin W/ Minerals 1 TAB PO SCH (14:18)
[2021-11-30] MEDS: EPOETIN ALFA-EPBX (ESRD) 4,000 UNIT/ML VIAL SC SCH (14:19)
[2021-11-30] MEDS: Cefepime 0.5 GM, Admixture Fee 1 EACH in Sodium Chloride 0.9% 100 ML IVPB SCH (16:38)
[2021-11-30] MEDS: Aspirin Chewable 81 MG TAB PO SCH (20:05)
[2021-11-30] MEDS: Atorvastatin Calcium 40 MG TAB PO SCH (20:05)
[2021-11-30] MEDS: Lantus 1000 UNITS/10 ML VIAL SC SCH (20:06)
[2021-11-30] MEDS: Latanoprost 0.005% Ophth Soln 2.5 ml Bottle EA EYE SCH (20:07)
[2021-12-01] MEDS: HumaLOG 300 UNITS/3 ML VIAL SC PRN ×3 (04:25→21:17)
[2021-12-01] MEDS: Levothyroxine Sodium 75 MCG TAB PO SCH (05:12)
[2021-12-01 05:49] LABS: #Basophils 0.1 thou/uL (0.0-0.2); #Lymphocytes 3.1 thou/uL (1.20-3.40); #Monocytes 1.3 thou/uL (0.11-0.59); #Neutrophils 5.4 thou/uL (1.40-6.50); %Basophils 0.5 % (0.0-1.0); %Eosinophils 0.3 % (0.0-10.0); %Lymphocytes 31.6 % (21.0-51.0); %Monocytes 13.3 % (0.0-10.0); %Neutrophils 54.2 % (42.0-75.0); Hemoglobin 7.6 g/dL (12.0-16.0); Mean Corpuscular HGB CONC 29.7 g/dL (32.0-36.0); Mean Corpuscular Hemoglobin 26.9 pg (27.0-31.0); Mean Corpuscular Volume 90.3 fL (78.0-98.0); Mean Platelet Volume 8.7 fL (7.4-10.4); Platelet Count 248 thou/uL (130-400); RBC Distribution Width 17.7 % (11.5-14.5); Red Blood Cell (RBC) Count 2.83 mill/uL (4.20-5.40); White Blood Cell (WBC) Count 9.9 thou/uL (4.8-10.8)
[2021-12-01 06:12] LABS: Anion Gap 15 mmol/L (10-20); BUN (Urea Nitrogen) 17 mg/dL (9.8-20.1); Calc. Creatinine Clearance 30 mL/min (70-130); Calcium 8.9 mg/dL (7.8-10.44); Carbon Dioxide 27 mmol/L (23-31); Chloride 99 mmol/L (98-107); Glucose 237 mg/dL (80-115); Potassium 4.1 mmol/L (3.5-5.1); Sodium 137 mmol/L (136-145)
[2021-12-01] MEDS: Apixaban 5 MG TAB PO SCH ×3 (08:58→21:13)
[2021-12-01] MEDS: Timolol 0.5% Ophth Soln 5 ml Bottle EA EYE SCH ×2 (10:03→21:16)
[2021-12-01] MEDS: Brimonidine Tartrate 0.2% Ophth Soln 5 ml Bottle EA EYE SCH ×2 (10:05→21:15)
[2021-12-01] MEDS: Polyethylene Glycol 3350 17 GM Packet PO SCH (10:09)
[2021-12-01] MEDS: predniSONE 5 MG TAB PO SCH (10:11)
[2021-12-01] MEDS: Gabapentin 400 MG CAP PO SCH (10:15)
[2021-12-01] MEDS: Cholecalciferol 1,000 UNITS (25 MCG) TAB PO SCH (10:16)
[2021-12-01] MEDS: Multivitamin W/ Minerals 1 TAB PO SCH (10:16)
[2021-12-01] MEDS: Ascorbic Acid 500 mg Chewable Tablet PO SCH ×2 (10:16→21:13)
[2021-12-01] MEDS: Midodrine HCl 5 MG TAB PO SCH ×3 (10:17→21:12)
[2021-12-01] MEDS: Megestrol Acetate 800 MG/20 ML UDCUP PO SCH (10:26)
[2021-12-01] MEDS: Fludrocortisone Acetate 0.1 MG TAB PO SCH ×2 (10:46→21:12)
[2021-12-01] MEDS: Sucralfate 1 GM TAB PO SCH ×3 (10:46→21:13)
[2021-12-01] MEDS: Sevelamer Carbonate 800 MG TAB PO SCH ×4 (10:46→17:33)
[2021-12-01] MEDS: Zinc Sulfate 220 MG CAP PO SCH (10:47)
[2021-12-01] MEDS: Lansoprazole 3 MG/ML ORAL SUSPENSION PO SCH ×2 (10:56→21:11)
[2021-12-01] MEDS: Amiodarone 200 MG TAB PO SCH (10:58)
[2021-12-01 14:59] LABS: Hemoglobin 7.7 g/dL (12.0-16.0)
[2021-12-01] MEDS: Atorvastatin Calcium 40 MG TAB PO SCH (21:13)
[2021-12-01] MEDS: Aspirin Chewable 81 MG TAB PO SCH (21:13)
[2021-12-01] MEDS: Latanoprost 0.005% Ophth Soln 2.5 ml Bottle EA EYE SCH (21:16)
[2021-12-01] MEDS: Lantus 1000 UNITS/10 ML VIAL SC SCH (21:16)
[2021-12-02] MEDS: Levothyroxine Sodium 75 MCG TAB PO SCH (06:35)
[2021-12-02] MEDS: HumaLOG 300 UNITS/3 ML VIAL SC PRN ×4 (06:35→21:19)
[2021-12-02] MEDS: Sucralfate 1 GM TAB PO SCH ×3 (09:08→21:11)
[2021-12-02] MEDS: Sevelamer Carbonate 800 MG TAB PO SCH ×3 (09:09→18:02)
[2021-12-02] MEDS: Midodrine HCl 5 MG TAB PO SCH ×3 (09:09→21:11)
[2021-12-02] MEDS: Gabapentin 400 MG CAP PO SCH (09:10)
[2021-12-02] MEDS: predniSONE 5 MG TAB PO SCH (09:13)
[2021-12-02] MEDS: Cholecalciferol 1,000 UNITS (25 MCG) TAB PO SCH (09:13)
[2021-12-02] MEDS: Ascorbic Acid 500 mg Chewable Tablet PO SCH ×2 (09:13→21:11)
[2021-12-02] MEDS: Amiodarone 200 MG TAB PO SCH (09:13)
[2021-12-02] MEDS: Zinc Sulfate 220 MG CAP PO SCH (09:13)
[2021-12-02] MEDS: Megestrol Acetate 800 MG/20 ML UDCUP PO SCH (09:14)
[2021-12-02] MEDS: Lansoprazole 3 MG/ML ORAL SUSPENSION PO SCH ×2 (09:14→21:12)
[2021-12-02] MEDS: Fludrocortisone Acetate 0.1 MG TAB PO SCH ×2 (09:14→21:11)
[2021-12-02] MEDS: Multivitamin W/ Minerals 1 TAB PO SCH (09:14)
[2021-12-02] MEDS: Apixaban 5 MG TAB PO SCH ×2 (09:15→21:11)
[2021-12-02] MEDS: Timolol 0.5% Ophth Soln 5 ml Bottle EA EYE SCH ×2 (09:16→21:12)
[2021-12-02] MEDS: Brimonidine Tartrate 0.2% Ophth Soln 5 ml Bottle EA EYE SCH ×2 (09:24→21:12)
[2021-12-02] MEDS: Polyethylene Glycol 3350 17 GM Packet PO SCH (09:25)
[2021-12-02] MEDS: Aluminum & Magnesium Hydroxide 60 ML, diphenhydrAMINE 150 MG, Lidocaine 2% Viscous Solu... SSW SCH ×4 (11:19→21:11)
[2021-12-02] MEDS: Atorvastatin Calcium 40 MG TAB PO SCH (21:11)
[2021-12-02] MEDS: Aspirin Chewable 81 MG TAB PO SCH (21:11)
[2021-12-02] MEDS: Latanoprost 0.005% Ophth Soln 2.5 ml Bottle EA EYE SCH (21:12)
[2021-12-02] MEDS: Lantus 1000 UNITS/10 ML VIAL SC SCH (21:13)
[2021-12-03] MEDS: HumaLOG 300 UNITS/3 ML VIAL SC PRN ×3 (06:34→21:55)
[2021-12-03] MEDS: Levothyroxine Sodium 75 MCG TAB PO SCH (06:34)
[2021-12-03 06:57] LABS: #Basophils 0.1 thou/uL (0.0-0.2); #Eosinphils 0.1 thou/uL (0.0-0.7); #Lymphocytes 3.5 thou/uL (1.20-3.40); #Monocytes 1.3 thou/uL (0.11-0.59); #Neutrophils 6.5 thou/uL (1.40-6.50); %Basophils 0.5 % (0.0-1.0); %Eosinophils 1.2 % (0.0-10.0); %Lymphocytes 30.2 % (21.0-51.0); %Monocytes 11.5 % (0.0-10.0); %Neutrophils 56.6 % (42.0-75.0); Hemoglobin 7.6 g/dL (12.0-16.0); Mean Corpuscular Volume 90.2 fL (78.0-98.0); Mean Platelet Volume 8.7 fL (7.4-10.4); Platelet Count 262 thou/uL (130-400); RBC Distribution Width 17.5 % (11.5-14.5); White Blood Cell (WBC) Count 11.5 thou/uL (4.8-10.8)
[2021-12-03 07:17] LABS: Anion Gap 18 mmol/L (10-20); BUN (Urea Nitrogen) 56 mg/dL (9.8-20.1); Calc. Creatinine Clearance 17 mL/min (70-130); Calcium 9.6 mg/dL (7.8-10.44); Carbon Dioxide 25 mmol/L (23-31); Chloride 99 mmol/L (98-107); Glucose 242 mg/dL (80-115); Potassium 3.8 mmol/L (3.5-5.1); Sodium 138 mmol/L (136-145)
[2021-12-03] MEDS: Amiodarone 200 MG TAB PO SCH (08:16)
[2021-12-03] MEDS: Apixaban 5 MG TAB PO SCH ×2 (08:16→21:39)
[2021-12-03] MEDS: Gabapentin 400 MG CAP PO SCH (08:17)
[2021-12-03] MEDS: Midodrine HCl 5 MG TAB PO SCH ×3 (08:18→21:45)
[2021-12-03] MEDS: Ascorbic Acid 500 mg Chewable Tablet PO SCH ×2 (08:18→21:39)
[2021-12-03] MEDS: Zinc Sulfate 220 MG CAP PO SCH (08:18)
[2021-12-03] MEDS: Fludrocortisone Acetate 0.1 MG TAB PO SCH ×2 (08:19→21:39)
[2021-12-03] MEDS: predniSONE 5 MG TAB PO SCH (08:19)
[2021-12-03] MEDS: Cholecalciferol 1,000 UNITS (25 MCG) TAB PO SCH (08:19)
[2021-12-03] MEDS: Sucralfate 1 GM TAB PO SCH ×3 (08:19→21:40)
[2021-12-03] MEDS: Lansoprazole 3 MG/ML ORAL SUSPENSION PO SCH ×2 (08:19→21:41)
[2021-12-03] MEDS: Megestrol Acetate 800 MG/20 ML UDCUP PO SCH (08:19)
[2021-12-03] MEDS: Multivitamin W/ Minerals 1 TAB PO SCH (08:19)
[2021-12-03] MEDS: Sevelamer Carbonate 800 MG TAB PO SCH ×3 (08:19→17:00)
[2021-12-03] MEDS: Brimonidine Tartrate 0.2% Ophth Soln 5 ml Bottle EA EYE SCH ×2 (08:29→21:40)
[2021-12-03] MEDS: Polyethylene Glycol 3350 17 GM Packet PO SCH (08:30)
[2021-12-03] MEDS: Timolol 0.5% Ophth Soln 5 ml Bottle EA EYE SCH ×2 (08:34→21:40)
[2021-12-03] MEDS: Aluminum & Magnesium Hydroxide 60 ML, diphenhydrAMINE 150 MG, Lidocaine 2% Viscous Solu... SSW SCH ×4 (08:39→21:39)
[2021-12-03] MEDS ORDERED: Heparin 10,000 UNITS/ 10 ML VIAL ONE (08:44)
[2021-12-03] MEDS ORDERED: EPOETIN ALFA-EPBX (ESRD) 4,000 UNIT/ML VIAL SC SCH (09:00)
[2021-12-03] MEDS ORDERED: EPOETIN ALFA-EPBX (ESRD) 10,000 UNIT/ML VIAL SC SCH (12:00)
[2021-12-03] MEDS: Aspirin Chewable 81 MG TAB PO SCH (21:39)
[2021-12-03] MEDS: Atorvastatin Calcium 40 MG TAB PO SCH (21:39)
[2021-12-03] MEDS: Latanoprost 0.005% Ophth Soln 2.5 ml Bottle EA EYE SCH (21:40)
[2021-12-03] MEDS: Lantus 1000 UNITS/10 ML VIAL SC SCH (21:41)
[2021-12-04] MEDS: Levothyroxine Sodium 75 MCG TAB PO SCH (06:28)
[2021-12-04] MEDS: HumaLOG 300 UNITS/3 ML VIAL SC PRN ×2 (06:28→12:48)
[2021-12-04 08:17] VITALS: BP 110/71; TEMP 97.9
[2021-12-04] MEDS: Lansoprazole 3 MG/ML ORAL SUSPENSION PO SCH (09:30)
[2021-12-04] MEDS: Aluminum & Magnesium Hydroxide 60 ML, diphenhydrAMINE 150 MG, Lidocaine 2% Viscous Solu... SSW SCH ×3 (09:31→17:51)
[2021-12-04] MEDS: Sucralfate 1 GM TAB PO SCH ×2 (09:32→14:45)
[2021-12-04] MEDS: Sevelamer Carbonate 800 MG TAB PO SCH ×3 (09:32→17:51)
[2021-12-04] MEDS: Cholecalciferol 1,000 UNITS (25 MCG) TAB PO SCH (09:33)
[2021-12-04] MEDS: Ascorbic Acid 500 mg Chewable Tablet PO SCH (09:33)
[2021-12-04] MEDS: Midodrine HCl 5 MG TAB PO SCH ×2 (09:33→14:44)
[2021-12-04] MEDS: Apixaban 5 MG TAB PO SCH (09:33)
[2021-12-04] MEDS: Amiodarone 200 MG TAB PO SCH (09:33)
[2021-12-04] MEDS: Polyethylene Glycol 3350 17 GM Packet PO SCH (09:34)
[2021-12-04] MEDS: Zinc Sulfate 220 MG CAP PO SCH (09:34)
[2021-12-04] MEDS: Gabapentin 400 MG CAP PO SCH (09:34)
[2021-12-04] MEDS: Timolol 0.5% Ophth Soln 5 ml Bottle EA EYE SCH (09:35)
[2021-12-04] MEDS: Fludrocortisone Acetate 0.1 MG TAB PO SCH (09:35)
[2021-12-04] MEDS: Megestrol Acetate 800 MG/20 ML UDCUP PO SCH (09:36)
[2021-12-04] MEDS: Brimonidine Tartrate 0.2% Ophth Soln 5 ml Bottle EA EYE SCH (09:36)
[2021-12-04] MEDS: predniSONE 5 MG TAB PO SCH (09:37)
[2021-12-04] MEDS: Multivitamin W/ Minerals 1 TAB PO SCH (09:37)
== END 2021-12-04 17:30 | DRG 871 ==
LOC: ERS 07:44 → ERHOLD 14:37 → T4-B 17:47
PROVIDERS: ADMIT Internal Medicine; ATTEND Internal Medicine
PROC: 5A1D70Z Performance of Urinary Filtration, Intermittent, Less than 6 Hours Per Day (ICD-10-PCS; principal; 2021-11-26)
DX: A41.9 Sepsis, unspecified organism (principal); L89.154 Pressure ulcer of sacral region, stage 4; Z20.822 Contact with and (suspected) exposure to COVID-19; N18.6 End stage renal disease; G93.41 Metabolic encephalopathy; E87.1 Hypo-osmolality and hyponatremia; E85.3 Secondary systemic amyloidosis; I50.32 Chronic diastolic (congestive) heart failure; T86.12 Kidney transplant failure; M46.27 Osteomyelitis of vertebra, lumbosacral region; J96.11 Chronic respiratory failure with hypoxia; N25.81 Secondary hyperparathyroidism of renal origin; N13.39 Other hydronephrosis; M49.86 Spondylopathy in diseases classified elsewhere, lumbar region; E78.5 Hyperlipidemia, unspecified; E11.22 Type 2 diabetes mellitus with diabetic chronic kidney disease; H40.9 Unspecified glaucoma; I48.0 Paroxysmal atrial fibrillation; Y83.0 Surgical operation with transplant of whole organ as the cause of abnormal reaction of the patient, or of later complication, without mention of misadventure at the time of the procedure; E11.649 Type 2 diabetes mellitus with hypoglycemia without coma; E11.69 Type 2 diabetes mellitus with other specified complication; E83.39 Other disorders of phosphorus metabolism; E86.9 Volume depletion, unspecified; D63.1 Anemia in chronic kidney disease; I95.89 Other hypotension; K21.9 Gastro-esophageal reflux disease without esophagitis; G89.29 Other chronic pain; M46.46 Discitis, unspecified, lumbar region; L89.622 Pressure ulcer of left heel, stage 2; R33.8 Other retention of urine; E66.9 Obesity, unspecified; K12.1 Other forms of stomatitis; E87.6 Hypokalemia; Z68.31 Body mass index [BMI] 31.0-31.9, adult; Z99.2 Dependence on renal dialysis; Z95.0 Presence of cardiac pacemaker; Z90.710 Acquired absence of both cervix and uterus; Z79.899 Other long term (current) drug therapy; Z79.82 Long term (current) use of aspirin; Z79.890 Hormone replacement therapy; Z79.52 Long term (current) use of systemic steroids; Z79.01 Long term (current) use of anticoagulants; Z91.018 Allergy to other foods
CPT/HCPCS: 36415; 36416; 71045; 72158; 72197; 80048; 80053; 80202; 80400; 83605; 83690; 83735; 83970; 84100; 84132; 84134; 85025; 86140; 87040; 87340; 90935; 96365; 96375; G0257; J0692; J0834; J1644; J1815; J3370; J3490; J7030; J7050; J7512; Q0163; Q5105; U0002; U0003; U0005

== ENCOUNTER 2022-03-30 20:19 | Emergency (ER) | payer MEDICARE, OTHER | END 2022-03-30 22:33 | disposition home or self-care (01) | LOC: ERS 20:19 | DX: R19.7 Diarrhea, unspecified (principal); E11.22 Type 2 diabetes mellitus with diabetic chronic kidney disease; I12.0 Hypertensive chronic kidney disease with stage 5 chronic kidney disease or end stage renal disease; N18.6 End stage renal disease; K21.9 Gastro-esophageal reflux disease without esophagitis; D63.1 Anemia in chronic kidney disease; I48.91 Unspecified atrial fibrillation; Z79.899 Other long term (current) drug therapy | CPT/HCPCS: 74022 ==